=== PATIENT | female | born 1960 | race Caucasian/White ===

== ENCOUNTER 2018-10-21 13:16 | Emergency (ER) | payer OTHER, MEDICAID ==
[~2018-10-21] VITALS: Ht 177.8 cm; Wt 90.7 kg
[~2018-10-21 13:16] MED LIST: ASPRIN; ATOR10TA OR; DIPH25TA26 OR; LANTUS; LISI10TA6 OR; LITHIUM; METFORMIN; PRAM0.5T OR
[2018-10-21 14:00] VITALS: BP 172/72
[2018-10-21] MEDS ORDERED: ALPRAZolam 0.5 MG TAB PO ONE (16:15)
== END 2018-10-21 16:23 | disposition home or self-care (01) ==
LOC: ER 13:16
DX: F41.9 Anxiety disorder, unspecified (principal); I10 Essential (primary) hypertension; Z79.4 Long term (current) use of insulin; Z79.82 Long term (current) use of aspirin; Z79.899 Other long term (current) drug therapy; Z76.0 Encounter for issue of repeat prescription

== ENCOUNTER 2025-06-14 17:40 | Inpatient (IN) | payer MEDICARE, MEDICAID ==
[~2025-06-14] VITALS: Ht 170.2 cm; Wt 94.1 kg
[~2025-06-14 17:40] MED LIST changes: +LISI10TA34 OR; -LISI10TA6 OR; -PRAM0.5T OR; +PRAM0.5T2 OR
[2025-06-14 19:19] LABS: Hematocrit 44.6 % (36.0-46.0); Hemoglobin 14.8 g/dL (12.2-16.2); Mean Corpuscular Hemoglobin 28.9 pg (28.0-32.0); Mean Corpuscular Volume 86.9 fL (80.0-100.0); Nucleated Red Blood Cells % 0.0 %
--- NOTE | 2025-06-14 19:21 | DVH ---
CHEST RADIOGRAPH Indication: ALOC Technique: Single frontal view of the chest was obtained Comparison: None FINDINGS: Lines and Tubes: None Lungs: No focal consolidation. Pleura: No effusion. No pneumothorax. Cardiomediastinal contours: Unremarkable Bones: No acute osseous abnormality. IMPRESSION: 1. No acute cardiopulmonary disease.
--- NOTE | 2025-06-14 19:23 | ED.PDOC ---
Altered Mental Status HPI Comments [id number] is BIBA for c/c of AMS. Per EMS personnel report, patient was found altered outside of a crisis center, earlier, this evening. On scene blood glucose of 243. Patient is awake and tracks but refuses to answer questions. At time of assessment, patient is a poor historian and refuses to answer questions. Further history is limited, due to patient's current condition and absence of family/admissions dean historians. ERA BAR: ALOC. HPI: Poor Historian. Past Medical History: Unknown Past Surgical History: Unknown REVIEW OF SYSTEMS: Limited since the patient does not answer any of our questions but she still does voice some dissatisfaction when I pushed on her bel ly she started swearing and pushing by arms away. CONSTITUTIONAL: Denies acute: fever, diaphoresis, chills, generalized weakness. HEAD: Denies acute: headache, photophobia Eyes: Denies acute: Double vision, vision loss, eye pain, eye discharge. EARS: Denies acute: tinnitus, hearing loss, ear discharge, ear pain, THROAT: Denies acute: sore throat, swelling, difficulty swallowing , pain with swallowing, change in voice. NECK: Denies acute: neck pain, neck swelling, stiff neck. HEART: Denies acute : chest pain, palpitations, LUNGS: Denies acute: SOB, wheezing, cough, hemoptysis ABDOMEN: Denies acute: abdominal pain, Nausea, Vomiting, diarrhea, melena , hematemesis, hematochezia SKIN: Denies acute: rash, redness, lesions, itchiness. EXTREMITIES: Denies acute: calf pain, numbness, tingling, weakness, denies pain in extremity. Denies acute: Low back pain. Neuro: Denies acute: focal neurological deficit, motor or sensory focal neurological deficit, tremors, seizure like activity, confusion, dizziness, change in mental status, loss of bowel or bladder function, cauda equina like symptoms. : Denies acute: dysuria, hematuria, flank pain, increase in urinary frequency. PSYCH: Denies acute: hallucination, suicidal ideation, homicidal ideation. FEMALE: Denies acute: abnormal vaginal bleeding, foul odor, unusual discharge. PHYSICAL EXAM: General: ---no-----acute distress, awake and alert. Head: normocephalic, atraumatic. No raccoon's eyes, no martinez sign. Neck: supple, trachea is midline, no swelling. Throat: Normal phonation. Eyes:, no erythema, no purulent discharge, no proptosis, no icterus. Heart: regular rate, regular rhythm, no significant murmur appreciated. Lungs: no apparent respiratory distress, Able to speak in full sentences. No wheezing, no rhonchi, no crackles. No stridors Clear to auscultation bilaterally. Abdomen: Generalized tender to palpation, non distended, soft, no guarding, no rebound, + bowel sounds. Neuro: Awake, Alert, Skin: no petechia, no purpura, no cyanosis, slightly-pale, not jaundice. Lower extremities: --no - Pitting edema no deformity, no focal swelling, no calf TTP. Makes eye contact. moves all four extremities. Face: no apparent facial droop. ED COURSE: DISCLAIMER: This medical document was created using an electronic medical record system with voice recognition software and computerized dictation system. Although this document has been carefully reviewed, there might still be some phonetic and typographical errors. Occasional wrong-word or "sound-alike" substitutions may have occurred due to the inherent limitations of voice recognition software. These areas are purely typographical due to imperfections of the software pro grams and do not reflect any compromise in the patient's medical care. Please read the chart carefully and recognize, using context, where these substitutions have occurred. 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 Was a procedure done?: No Differential Diagnosis (ALOC) Differential Diagnosis: Other (DDX include CVA, TGA, cerebellar ischemia/infarct, carotid stenosis, Intracranial mass/infection/bleed, encephalopathy, electrolyte abnormality, thyroid disease, hydrocephalus, hypoglycemia, drug toxicity, cardiac arrhythmia, seizure, infection in the elderly, Hyperammonemia., kidney failure., sepsis.) X-Ray, Labs, Meds, VS Vital Signs Date Time Temp Pulse Resp B/P (MAP) Pulse Ox O2 Delivery O2 Flow Rate FiO2 06/14/25 17:53 98.8 115 18 127/67 98 98.8 Lab Test 06/14/25 21:47 06/14/25 19:49 06/14/25 18:55 Range/Units Lactic Acid Level 1.7 2.2 *H 0.4-2.0 mmol/L Troponin I High Sensitivity 4 < 3 L < 3 L </=34 ng/L White Blood Count 8.6 4.4-10.8 10^3/uL Red Blood Count 5.13 4.0-5.20 10^6/uL Hemoglobin 14.8 12.2-16.2 g/dL Hematocrit 44.6 36.0-46.0 % Mean Corpuscular Volume 86.9 80.0-100.0 fL Mean Corpuscular Hemoglobin 28.9 28.0-32.0 pg Mean Corpuscular Hemoglobin Concent 33.2 32.0-36.0 g/dL Red Cell Distribution Width 16.0 H 11.8-14.3 % Platelet Count 233 140-450 10^3/uL Mean Platelet Volume 8.6 6.9-10.8 fL Neutrophils (%) (Auto) 76.2 37.0-80.0 % Lymphocytes (%) (Auto) 14.8 10.0-50.0 % Monocytes (%) (Auto) 6.9 0.0-12.0 % Eosinophils (%) (Auto) 1.8 0.0-7.0 % Basophils (%) (Auto) 0.3 0.0-2.0 % Neutrophils # (Auto) 6.5 1.6-8.6 10 ^3/uL Lymphocytes # (Auto) 1.3 0.4-5.4 10 ^3/uL Monocytes # (Auto) 0.6 0-1.3 10 ^3/uL Eosinophils # (Auto) 0.2 0-0.8 10 ^3/uL Basophils # (Auto) 0 0-0.2 10 ^3/uL Nucleated Red Blood Cells 0.0 % Sodium Level 139 136-145 mmol/L Potassium Level 4.4 3.5-5.1 mmol/L Chloride Level 102 98-107 mmol/L Carbon Dioxide Level 24 20-31 mmol/L Anion Gap 13 5-15 Blood Urea Nitrogen 17 9-23 mg/dL Creatinine 1.88 H 0.550-1.02 mg/dL Glomerular Filtration Rate Calc 30 >90 mL/min BUN/Creatinine Ratio 9.0 L 10.0-20.0 Serum Glucose 235 H 74-106 mg/dL Calcium Level 9.9 8.7-10.4 mg/dL Total Bilirubin 1.0 0.2-1.0 mg/dL Aspartate Amino Transferase (AST) 21 13-40 U/L Alanine Aminotransferase (ALT) 22 7-40 U/L Alkaline Phosphatase 187 H 46-116 U/L Ammonia < 10 L 11-32 umol/L Creatine Kinase 36 34-145 U/L Total Protein 8.1 5.7-8.2 g/dL Albumin 4.8 3.2-4.8 g/dL Salicylates Level < 3.0 -30 mg/dL Acetaminophen Level < 2.0 L 10.0-20.0 UG/ML Time of 1ST Reevaluation: 18:13 Reevaluation 1ST: Unchanged Patient Education/Counseling: Other (Patient is altered ) Family Education/Counseling: No Family Present Comments MDM: patient presented with the above HPI.--AMS/ALOC----workup was initiated. patient was found with the above mentioned diagnosis. the following medications were ordered: please refer to order lists of meds and tests obtained by myself Dr. Villanueva. Patient ED course and VS have been stabilized. Patient has been reassessed in the ED and remained in a stable condition. Patient has been observed in the ED adequate length of time to insure improvement/stability. Escalation of care considered: Consideration of escalation to observation or admission Patient refuses to answer any questions. They were unable to obtain CT scan imaging because patient keeps moving. Patient was ADMITTED to the medicine team for further evaluation and treatment of their presentation. All the reports of any imaging studies that were ordered by myself were reviewed by myself. SEPSIS Sepsis Screen Date sepsis recognized/suspect: Jun 14, 2025 Time Sepsis recognized/suspect: 1734 Recent Procedure: No On Antibiotic Therapy: No Respiratory Rate >20: No Heart Rate >90: Yes Temp<36 C (96.8 F) or >38.3 C: No SBP <90 or MAP <65 mmHG: No New Acute Mental Status Change: Yes Is the patient on CPAP, BIPAP,: No Physician Orders Legal Transcriptionist (06/14/25 ) Urinalysis (06/14/25 18:19) Drug Screen (06/14/25 18:19) Chest Portable (06/14/25 18:19) Electrocardigram (06/14/25 18:19) Head Without Contrast (06/14/25 18:19) Ct Ab Pel Wo Con-No Oral Or Iv (06/14/25 18:35) Vital Signs Date Time Temp Pulse Resp B/P (MAP) Pulse Ox O2 Delivery O2 Flow Rate FiO2 06/14/25 17:53 98.8 115 18 127/67 98 98.8 Laboratory Tests Test 06/14/25 18:55 06/14/25 21:47 Lactic Acid Level 2.2 mmol/L (0.4-2.0) *H 1.7 mmol/L (0.4-2.0) White Blood Count 8.6 10^3/uL (4.4-10.8) Departure 1 Departure Time of Disposition: 20:54 Impression: Primary Impression: Altered mental status Disposition: 09 ADMITTED INPATIENT Admit to: Tele Condition: Guarded Discharged With: Self Critical Care Note Critical Care Time?: No I personally scribed for NATALIE VILLANUEVA DO ([email or web address]) on 06/14/25 at 20:20. Electronically submitted by Anibal Hernandez [email or web address]). NATALIE VILLANUEVA DO Jun 14, 2025 19:23
[2025-06-14 19:31] LABS: Alanine Aminotransferase 22 U/L (7-40); Albumin 4.8 g/dL (3.2-4.8); Anion Gap 13 (5-15); BUN/Creatinine Ratio 9.0 (10.0-20.0); Bilirubin, Total 1.0 mg/dL (0.2-1.0); Blood Urea Nitrogen 17 mg/dL (9-23); Calcium 9.9 mg/dL (8.7-10.4); Carbon Dioxide 24 mmol/L (20-31); Chloride 102 mmol/L (98-107); Creatine Kinase IFCC 36 U/L (34-145); Potassium 4.4 mmol/L (3.5-5.1); Sodium 139 mmol/L (136-145); Total Protein 8.1 g/dL (5.7-8.2)
[2025-06-14 19:33] LABS: Alkaline Phosphatase 187 U/L (46-116); Glucose 235 mg/dL (74-106)
[2025-06-14 19:34] LABS: Acetaminophen < 2.0 UG/ML (10.0-20.0); Salicylate < 3.0 mg/dL (-30)
[2025-06-14 19:50] LABS: Lactic Acid w/Reflex 2.2 mmol/L (0.4-2.0)
[2025-06-14] MEDS ORDERED: DEXTROSE (50%) 50ML SYRG IV PRN (22:00)
[2025-06-14] MEDS: SODIUM CHLORIDE 0.9% 1,000 ML IV SCH (22:00)
[2025-06-14] MEDS ORDERED: ONDANSETRON HCL 4 MG/2 ML VIAL IV PRN (22:00)
[2025-06-14] MEDS ORDERED: MORPHINE SULFATE INJ 2 MG/ml SYRG IV PRN (22:00)
[2025-06-14] MEDS: ATORVASTATIN 20 MG TAB PO SCH (22:00)
[2025-06-14] MEDS ORDERED: NITROGLYCERIN 0.4 MG SL TAB SL PRN (22:00)
--- NOTE | 2025-06-14 22:04 | DVHHP2 ---
History of Present Illness Reason for Visit: Altered mental status History of Present Illness The patient is a 64-year-old female with past medical history of depression, schizophrenia, hyperlipidemia, and diabetes mellitus who presented to [facility] ED for evaluation of altered level of consciousness. As reported by EMS, patient was found altered outside of a crisis center earlier this evening. On the scene, blood glucose was 243 mg/dL. Patient was awake tracks but refuses to answer questions, he is a poor historian. Patient was seen and evaluated in the ED, laboratory data shows WBC 8.6, platelets 233, sodium 139, potassium 4.4, BUN 17, creatinine 1.88, glucose 235, calcium 9.9, CK 36, lactic acid 2.2, ammonia < 10, troponin < 3, blood pressure 127/67, heart rate 114, temperature 98.8 F, O2 saturation 98% on room air. Chest x-ray showed no acute cardiopulmonary disease. Head CT results pending. Please see medication orders section in the computer. On my assessment, patient remains altered, no diaphoresis, shortness of breaths, no diarrhea, nausea, vomiting, fever, no chills. Patient was admitted for further evaluation and medical management. Past Medical History Depression, Schizophrenia, HLD, DM Past Surgical History Unobtainable Family History Reviewed, noncontributory to the management of this case. Past Social History The patient lives at home, no history of smoking, alcohol or illicit drugs abuse on file. Review of Systems Constitutional: Yes: Weakness; No: Fever, Chills, Sweats, Malaise, Other Eyes: No: Pain, Vision change, Conjunctivae inflammation, Eyelid inflammation, Other, Redness ENT: No: Ear pain, Ear discharge, Nose pain, Nose discharge, Nose congestion, Mouth pain, Mouth swelling, Throat pain, Throat swelling, Other Respiratory: No: Cough, Dry, Shortness of breath, SOB with excertion, Wheezing, Hemoptysis, Pleuritic Pain, Sputum, Wheezing, Other Cardiovascular: No: Chest Pain, Palpitations, Orthopnea, Paroxysmal Noc. Dyspnea, Edema, Lt Headedness, Other Gastrointestinal: No: Nausea, Vomiting, Abdominal Pain, Diarrhea, Constipation, Melena, Hematochezia, Other Genitourinary: No Dysuria, No Frequency, No Incontinence, No Hematuria, No Retention, No Other Musculoskeletal: No: other, neck pain, shoulder pain, arm pain, back pain, hand pain, leg pain, foot pain Skin: No: Rash, Lesions, Jaundice, Bruising, Other Neurological: Confusion, Other (Altered level of consciousness); No: Weakness, Numbness, Incoordination, Change in speech, Seizures Allergies: Coded Allergies: UNOBTAINABLE (Unverified , 06/14/25) Exam Vital Signs Vital Signs Date Time Temp Pulse Resp B/P (MAP) Pulse Ox O2 Delivery O2 Flow Rate FiO2 06/14/25 17:53 98.8 115 18 127/67 98 98.8 General Appearance: Alert, Cooperative, No acute distress, Other (X1) HEENT: Atraumatic, PERRLA, EOMI, Mucous membr. moist/pink Respiratory: Normal air movement Cardiovascular: Regular rate, Normal S1, Normal S2, No murmurs Abdominal: Normal bowel sounds, Soft, No tenderness, No hepatospenomegaly, No masses Extremities: No clubbing, No cyanosis, No edema, Normal pulses, No tenderness/swelling Skin: No rashes, No significant lesion Neuro: Normal tone, Sensation intact, Cranial nerves 3-12 NL, Reflexes 2+, Other (Generalized weakness) Psych/Mental Status: Mood NL, Other (Altered mental status) Labs/Xrays Labs Test 06/14/25 21:47 06/14/25 18:55 Range/Units White Blood Count 8.6 4.4-10.8 10^3/uL Red Blood Count 5.13 4.0-5.20 10^6/uL Hemoglobin 14.8 12.2-16.2 g/dL Hematocrit 44.6 36.0-46.0 % Mean Corpuscular Volume 86.9 80.0-100.0 fL Mean Corpuscular Hemoglobin 28.9 28.0-32.0 pg Mean Corpuscular Hemoglobin Concent 33.2 32.0-36.0 g/dL Red Cell Distribution Width 16.0 H 11.8-14.3 % Platelet Count 233 140-450 10^3/uL Mean Platelet Volume 8.6 6.9-10.8 fL Neutrophils (%) (Auto) 76.2 37.0-80.0 % Lymphocytes (%) (Auto) 14.8 10.0-50.0 % Monocytes (%) (Auto) 6.9 0.0-12.0 % Eosinophils (%) (Auto) 1.8 0.0-7.0 % Basophils (%) (Auto) 0.3 0.0-2.0 % Neutrophils # (Auto) 6.5 1.6-8.6 10 ^3/uL Lymphocytes # (Auto) 1.3 0.4-5.4 10 ^3/uL Monocytes # (Auto) 0.6 0-1.3 10 ^3/uL Eosinophils # (Auto) 0.2 0-0.8 10 ^3/uL Basophils # (Auto) 0 0-0.2 10 ^3/uL Nucleated Red Blood Cells 0.0 % Sodium Level 139 136-145 mmol/L Potassium Level 4.4 3.5-5.1 mmol/L Chloride Level 102 98-107 mmol/L Carbon Dioxide Level 24 20-31 mmol/L Anion Gap 13 5-15 Blood Urea Nitrogen 17 9-23 mg/dL Creatinine 1.88 H 0.550-1.02 mg/dL Glomerular Filtration Rate Calc 30 >90 mL/min BUN/Creatinine Ratio 9.0 L 10.0-20.0 Serum Glucose 235 H 74-106 mg/dL Calcium Level 9.9 8.7-10.4 mg/dL Total Bilirubin 1.0 0.2-1.0 mg/dL Aspartate Amino Transferase (AST) 21 13-40 U/L Alanine Aminotransferase (ALT) 22 7-40 U/L Alkaline Phosphatase 187 H 46-116 U/L Ammonia < 10 L 11-32 umol/L Creatine Kinase 36 34-145 U/L Total Protein 8.1 5.7-8.2 g/dL Albumin 4.8 3.2-4.8 g/dL Salicylates Level < 3.0 -30 mg/dL Acetaminophen Level < 2.0 L 10.0-20.0 UG/ML PATIENT: ERA BAR ACCT: [id number] UNIT: [id number] : 06/14/1967 LOC: ER ROOM / BED: / AGE / SEX: 58 / F ADM STATUS: REG ER SERVICE 1819 ORDERING PHYSICIAN: NATALIE VILLANUEVA DO PROCEDURE(s): CXRP - CHEST PORTABLE REASON: ALOC ORDER NUMBER(s): [id number], ACCESSION NUMBER(s): [id number] CHEST RADIOGRAPH Indication: ALOC Technique: Single frontal view of the chest was obtained Comparison: None FINDINGS: Lines and Tubes: None Lungs: No focal consolidation. Pleura: No effusion. No pneumothorax. Cardiomediastinal contours: Unremarkable Bones: No acute osseous abnormality. IMPRESSION: 1. No acute cardiopulmonary disease. SEPSIS Sepsis Screen Date sepsis recognized/suspect: Jun 14, 2025 Time Sepsis recognized/suspect: 1734 Recent Procedure: No On Antibiotic Therapy: No Respiratory Rate >20: No Heart Rate >90: Yes Temp<36 C (96.8 F) or >38.3 C: No SBP <90 or MAP <65 mmHG: No New Acute Mental Status Change: Yes Is the patient on CPAP, BIPAP,: No Physician Orders Clinical Consultant (06/14/25 ) Urinalysis (06/14/25 18:19) Drug Screen (06/14/25 18:19) Chest Portable (06/14/25 18:19) Electrocardigram (06/14/25 18:19) Head Without Contrast (06/14/25 18:19) Troponin-I Hs (06/14/25 21:19) Ct Ab Pel Wo Con-No Oral Or Iv (06/14/25 18:35) Consistent Carb(Ccho)Diabetes (06/15/25 Breakfast) Famotidine Injection (Pepcid Injection) (06/15/25 10:00) Atorvastatin (Lipitor) (06/14/25 22:00) Olanzapine Tablet (Zyprexa Tablet) (06/15/25 10:00) Aspirin Tablet (06/15/25 10:00) Fluoxetine Capsule (Prozac Capsule) (06/15/25 10:00) Glucose Blood (Accu-Chek Comfort Curve T (06/15/25 00:00) Moderate Insulin Ss (06/15/25 00:00) Dextrose 50% Syringe (06/14/25 22:00) Admit (06/14/25 21:52) Allergies (06/14/25 21:52) Code Status (06/14/25 21:52) 0.9% Ns 1000 Ml (06/14/25 22:00) Oxygen Per Hour (06/14/25 21:52) Hydrocodone-Acet 5/325mg Tab ([place] 5/32 (06/14/25 22:00) Ondansetron Hcl (Zofran) (06/14/25 22:00) Docusate Sodium Capsule (Colace Capsule) (06/14/25 22:00) Fall Risk Precautions In Place QSHIFT (06/14/25:52) Complete Blood Count (06/15/25 04:00) Comprehensive Metabolic Panel (06/15/25 04:00) Condition: Serious (06/14/25:52) Acetaminophen Tablet (Tylenol Tablet) (06/14/25 22:00) Maintain Bed Rest (06/14/25:52) Sequential Compression Device (06/14/25 ) Nitroglycerin Sublingual (Ntrostat Subli (06/14/25 22:00) Morphine Sulfate Injection (06/14/25:00) Stat Ekg For Chest Pain (06/14/25:52) Notify Md Of Changes From Base (06/14/25:52) Bellows Filler For 24 Hours (06/14/25:52) Emergency Dysrhythmia Protocol (06/14/25:52) Rhythm Strips Once Every Shift (06/14/25:52) Oxygen By Nasal Cannula (06/14/25:52) *[facility] (06/14/25:52) Vital Signs Date Time Temp Pulse Resp B/P (MAP) Pulse Ox O2 Delivery O2 Flow Rate FiO2 06/14/25 17:53 98.8 115 18 127/67 98 98.8 Laboratory Tests Test 06/14/25 18:55 06/14/25 21:47 Lactic Acid Level 2.2 mmol/L (0.4-2.0) *H Pending White Blood Count 8.6 10^3/uL (4.4-10.8) Assessment/Plan Assessment/Plan Altered mental status Acute renal injury Diabetes mellitus with hyperglycemia Plan 1. Admit to telemetry unit 2. Breathing treatment 3. Pain control management 4. Management of fluids and electrolytes 5. Consultation for Nephrology 6. Diagnostic tests chest x-ray/head CT 7. DVT prophylaxis-on aspirin 8. Repeat labs CBC, CMP in a.m. 9. Continue with current medical management 10. Treatment plan discussed with patient and RN. Patient verbalized understanding. Plan discussed with: Patient, Other (RN) My Orders Orders - MARIANELA NOWAK DNP Procedure Category Date Status Time Consistent DIET 06/15/25 Verified Carb(Ccho)Diabetes Breakfast Famotidine Injection PHA 06/15/25 Verified (Pepcid Injection) 10:00 Atorvastatin (Lipitor) PHA 06/14/25 Verified 22:00 Olanzapine Tablet PHA 06/15/25 Verified (Zyprexa Tablet) 10:00 Aspirin Tablet PHA 06/15/25 Verified 10:00 Fluoxetine Capsule PHA 06/15/25 Verified (Prozac Capsule) 10:00 Glucose Blood PHA 06/15/25 Verified (Accu-Chek Comfort 00:00 Moderate Insulin Ss PHA 06/15/25 Verified 00:00 Dextrose 50% Syringe PHA 06/14/25 Verified 22:00 Admit ADMIT 06/14/25 Verified 21:52 Allergies MARIO 06/14/25 Verified 21:52 Code Status CODE 06/14/25 Verified 21:52 0.9% Ns 1000 Ml PHA 06/14/25 Verified 22:00 Oxygen Per Hour RT 06/14/25 Verified 21:52 Hydrocodone-Acet PHA 06/14/25 Verified 5/325mg Tab ([place] 22:00 Ondansetron Hcl PHA 06/14/25 Verified (Zofran) 22:00 Docusate Sodium PHA 06/14/25 Verified Capsule (Colace 22:00 Fall Risk Precautions [facility] 06/14/[address] 21:52 Complete Blood Count LAB 06/15/25 Verified 04:00 Comprehensive LAB 06/15/25 Verified Metabolic Panel 04:00 Condition: Serious MARIO 06/14/25 Verified 21:52 Acetaminophen Tablet PHA 06/14/25 Verified (Tylenol Tablet) 22:00 Maintain Bed Rest [facility] 06/14/25 Verified 21:52 Sequential [facility] 06/14/25 Verified Compression Device Nitroglycerin [facility] 06/14/25 Verified Sublingual (Ntrostat 22:00 Morphine Sulfate PHA 06/14/25 Verified Injection 22:00 Stat Ekg For Chest [facility] 06/14/25 Verified Pain 21:52 Notify Of Changes [facility] 06/14/25 Verified From Base 21:52 Bellows Filler For [facility] 06/14/25 Verified 24 Hours 21:52 Emergency Dysrhythmia [facility] 06/14/25 Verified Protocol 21:52 Rhythm Strips Once [facility] 06/14/25 Verified Every Shift 21:52 Oxygen By Nasal RT 10/31/25 Verified Cannula 21:52 *Dr[facility] CONS 06/14/25 Verified -[place] 21:52 Problem List: (1) Altered mental status (2) Acute renal injury (3) Diabetes mellitus with hyperglycemia Date of Service: Jun 14, 2025 Billing Provider: MARIANELA NOWAK DNP Common Visit Codes: [id number] INP/OBS CARE (HIGH) MARIANELA NWOAK DNP Jun 14, 2025 22:04
[2025-06-15] VITALS (7 sets, daily range): BP systolic 99–121; BP diastolic 62–75; PULSE 90–101; RESP 16–20; TEMP 97.9–99; O2SAT 18–96
[2025-06-15] MEDS: ACCU-CHEK COMFORT CURVE STRIP VI SCH
[2025-06-15] MEDS: InsuLIN REG 1unit/0.01ml Soln (100units/ml) SC SCH
[2025-06-15 05:52] LABS: Hematocrit 40.8 % (36.0-46.0); Hemoglobin 13.6 g/dL (12.2-16.2); Mean Corpuscular Hemoglobin 29.0 pg (28.0-32.0); Mean Corpuscular Volume 87.1 fL (80.0-100.0); Nucleated Red Blood Cells % 0.1 %
[2025-06-15 06:02] LABS: Alanine Aminotransferase 22 U/L (7-40); Albumin 4.4 g/dL (3.2-4.8); Anion Gap 15 (5-15); BUN/Creatinine Ratio 11.8 (10.0-20.0); Blood Urea Nitrogen 20 mg/dL (9-23); Calcium 9.6 mg/dL (8.7-10.4); Carbon Dioxide 21 mmol/L (20-31); Chloride 103 mmol/L (98-107); Potassium 3.8 mmol/L (3.5-5.1); Sodium 139 mmol/L (136-145); Total Protein 7.5 g/dL (5.7-8.2)
[2025-06-15 06:03] LABS: Bilirubin, Total 1.1 mg/dL (0.2-1.0)
[2025-06-15 06:08] LABS: Alkaline Phosphatase 173 U/L (46-116); Glucose 230 mg/dL (74-106)
--- NOTE | 2025-06-15 09:35 | DVHINCON2 ---
Date of Service if different f: Jun 15, 2025 Consultation ([facility]) Consulting Physician: KARLA JAMES MD Labs Laboratory Tests Test 06/14/25 18:55 06/14/25 21:47 06/15/25 05:19 06/15/25 08:03 Ammonia < 10 umol/L (11-32) Creatine Kinase 36 U/L (34-145) Salicylates Level < 3.0 mg/dL (-30) Acetaminophen Level < 2.0 UG/ML (10.0-20.0) Lactic Acid Level 1.7 mmol/L (0.4-2.0) Troponin I High Sensitivity 4 ng/L (</=34) White Blood Count 6.9 10^3/uL (4.4-10.8) Red Blood Count 4.69 10^6/uL (4.0-5.20) Hemoglobin 13.6 g/dL (12.2-16.2) Hematocrit 40.8 % (36.0-46.0) Mean Corpuscular Volume 87.1 fL (80.0-100.0) Mean Corpuscular Hemoglobin 29.0 pg (28.0-32.0) Mean Corpuscular Hemoglobin Concent 33.4 g/dL (32.0-36.0) Red Cell Distribution Width 15.8 % (11.8-14.3) Platelet Count 217 10^3/uL (140-450) Mean Platelet Volume 8.8 fL (6.9-10.8) Neutrophils (%) (Auto) 72.2 % (37.0-80.0) Lymphocytes (%) (Auto) 18.0 % (10.0-50.0) Monocytes (%) (Auto) 6.6 % (0.0-12.0) Eosinophils (%) (Auto) 2.8 % (0.0-7.0) Basophils (%) (Auto) 0.4 % (0.0-2.0) Neutrophils # (Auto) 5.0 10 ^3/uL (1.6-8.6) Lymphocytes # (Auto) 1.2 10 ^3/uL (0.4-5.4) Monocytes # (Auto) 0.5 10 ^3/uL (0-1.3) Eosinophils # (Auto) 0.2 10 ^3/uL (0-0.8) Basophils # (Auto) 0 10 ^3/uL (0-0.2) Nucleated Red Blood Cells 0.1 % Sodium Level 139 mmol/L (136-145) Potassium Level 3.8 mmol/L (3.5-5.1) Chloride Level 103 mmol/L (98-107) Carbon Dioxide Level 21 mmol/L (20-31) Anion Gap 15 (5-15) Blood Urea Nitrogen 20 mg/dL (9-23) Creatinine 1.70 mg/dL (0.550-1.02) Glomerular Filtration Rate Calc 33 mL/min (>90) BUN/Creatinine Ratio 11.8 (10.0-20.0) Serum Glucose 230 mg/dL (74-106) Calcium Level 9.6 mg/dL (8.7-10.4) Total Bilirubin 1.1 mg/dL (0.2-1.0) Aspartate Amino Transf (AST/SGOT) 17 U/L (13-40) Alanine Aminotransferase (ALT/SGPT) 22 U/L (7-40) Alkaline Phosphatase 173 U/L (46-116) Total Protein 7.5 g/dL (5.7-8.2) Albumin 4.4 g/dL (3.2-4.8) Bedside Glucose 227 mg/dl (70-106) Appetite: Poor Appearance: Stated age Psychomotor activity: Retarted Behavioral: Uncooperative, Withdrawn Eye contact: Avoids Speech: Mute Affect: Flat Orientation: Person Attention: Adequate Judgement: Poor Insight: Poor Vitals Vital Signs Date Time Temp Pulse Resp B/P (MAP) Pulse Ox O2 Delivery O2 Flow Rate FiO2 06/15/25 05:02 98.1 101 18 115/72 (86) 95 98.1 06/15/25 00:08 Room Air* 0 21 Current medications Current Medications Medications Dose Ordered Sig/Cooper Route Start Time Stop Time Status Last Admin Dose Admin Famotidine 20 mg DAILY IV 06/15/25 10:00 Atorvastatin Calcium 10 mg HS PO 06/14/25 22:00 06/14/25 22:00 10 MG Olanzapine 5 mg DAILY PO 06/15/25 10:00 Aspirin 81 mg DAILY PO 06/15/25 10:00 Fluoxetine HCl 20 mg DAILY PO 06/15/25 10:00 Diagnostic Test (Pha) 1 strip IQ4HR 06/15/25 00:00 06/15/25 08:10 1 STRIP Insulin Human Regular IQ4HR SC 06/15/25 00:00 06/15/25 08:13 6 UNITS Dextrose 50 ml UD PRN IV 06/14/25 22:00 Sodium Chloride 1,000 ml @ 60 mls/hr [id number] IV 06/14/25 22:00 06/15/25 04:03 60 MLS/HR Acetaminophen/ Hydrocodone Bitart 1 tab Q4HP PRN PO 06/14/25 22:00 Ondansetron HCl 4 mg Q4HP PRN IV 06/14/25 22:00 Docusate Sodium 100 mg BIDPRN PRN PO 06/14/25 22:00 Acetaminophen 650 mg Q6HP PRN PO 06/14/25 22:00 Nitroglycerin 0.4 mg Q5MINP PRN SL 06/14/25 22:00 Morphine Sulfate 2 mg Q30M PRN IV 06/14/25 22:00 Treatment plan discussed: With staff Medication adjusted: Yes Labs ordered: No Psychotherapy provided: No Type: Voluntary Diagnosis: History of Schizophrenia and Depression. The pt may be catatonic right now. Plan : The pt is not willing to participate in a psychiatric interview. Pt remains mute, does not answer questions, stares blankly. When nurse asked if she wants to continue the interview pt says no and turns away. Nurse says that the pt has only provided a single word answer here and there and has had 'some' food this morning. This presentation appears to be suggest catatonia and as such A trial of Ativan 2 mg once should be considered. If the 2 mg Ativan makes the pt somnolent and after 3 TID doses the pt continues to be somnolent on Ativan 2 mg, then starting the pt on Zyprexa 10 mg qhs to start, may be a good idea. If Catatonia starts to remit after a few doses, then taper to 1.5 mg TID in 3 days, then 1 mg TID 3 days after that. 0.5 mg TID 3 days after that and 0.5 mg BID 3 days after that. Then stop completely after 5 days of BID. The pt can be started and continued on zyprexa after catatonia starts to lift, but if it returns after starting zyprexa. Then, please stop zyprexa and resume ativan treatment. Consider transferring to inpatient psychiatry at the earliest opportunity on 5150 for GD. History of Present Illness Reason for Consult : ALOC. HPI : The pt was brought in from outside a crisis center for altered mental status. Per electrical test engineer note the pt "presented to [facility] ED for evaluation of altered level of consciousness. As reported by EMS, patient was found altered outside of a crisis center earlier yesterday evening. On the scene, blood glucose was 243 mg/dL. Patient was awake tracks but refuses to answer questions, he is a poor historian. Patient was seen and evaluated in the ED." Laboratory data shows unremarkable values except for high glucose over 200 and creatinine of 1.88 and an in creased RDW. These are not suggestive of a likely medical delirium. A psychiatric interview was attempted and the pt did not participate and declined the interview. Pt is noted to answer questions with 1 or 2 word answers. Pt barely moves and has no spontaneous speech. Past Psychiatric History : Depression, schizophrenia. Past Medical History : Hyperlipidemia, and diabetes mellitus. Social History : Unable to assess. Assessment/Diagnosis/Plan Reviewed: Consults, Care Plan, Labs, Medications KARLA JAMES MD Jun 15, 2025 09:35
[2025-06-15] MEDS: FAMOTIDINE (10MG/ML) 2ML VL IV SCH (09:41)
[2025-06-15] MEDS: OLANZapine 5 MG TAB PO SCH (09:41)
--- NOTE | 2025-06-15 16:55 | DVHINCON2 ---
Date of service: Jun 15, 2025 Referring Physician Hospitalist Reason for Consultation Acute kidney injury History of Present Illness 64-year-old female past medical history of chronic kidney disease stage IIIB, diabetes, pulmonary embolism on Eliquis, and bipolar disorder on medications was brought in by family due to dressing change in patient's mental state. Per daughter at bedside patient suddenly stopped eating drinking talking and remained in bed nonverbal she was brought to the hospital for this reason nephrology was consulted due to a creatinine level of 1.88 This is elevated from her baseline of approximately 1.[address] [facility] Patient has been evaluated by Psychiatry and during the course of his hospitalization patient has remained nonverbal noncompliant or adherent with med ical interviews or medical treatments. Psychiatry diagnosed her with acute catatonia and has recommended inpatient psychiatry Family at bedside reports patient recently was treated for a tooth abscess as well as urinary tract infection, patient this has not allowed for a urinary evaluation Allergies: Coded Allergies: UNOBTAINABLE (Unverified , 06/14/25) Current Medications Current Medications Medications (Trade) Dose Ordered Sig/Cooper Route PRN Reason Start Time Stop Time Status Last Admin Famotidine (Pepcid Injection) 20 mg DAILY IV 06/15/25 10:00 Atorvastatin Calcium (Lipitor) 10 mg HS PO 06/14/25 22:00 06/14/25 22:00 Olanzapine (ZyPREXA Tablet) 5 mg DAILY PO 06/15/25 10:00 Aspirin 81 mg DAILY PO 06/15/25 10:00 Fluoxetine HCl (PROzac CAPSULE) 20 mg DAILY PO 06/15/25 10:00 Diagnostic Test (Pha) (Accu-Chek Comfort Curve T) 1 strip IQ4HR 06/15/25 00:00 06/15/25 11:58 Insulin Human Regular (InsuLIN R) IQ4HR SC 06/15/25 00:00 06/15/25 08:13 Dextrose 50 ml UD PRN IV Blood Sugar LESS THAN 60 06/14/25 22:00 Sodium Chloride 1,000 ml @ 60 mls/hr [id number] IV 06/14/25 22:00 06/15/25 04:03 Acetaminophen/ Hydrocodone Bitart ([place] 5/325MG Tab) 1 tab Q4HP PRN PO MODERATE PAIN (4-6 PAIN SCALE) 06/14/25 22:00 Ondansetron HCl (Zofran) 4 mg Q4HP PRN IV NAUSEA / VOMITING 06/14/25 22:00 Docusate Sodium (Colace Capsule) 100 mg BIDPRN PRN PO FOR CONSTIPATION 06/14/25 22:00 Acetaminophen (Tylenol Tablet) 650 mg Q6HP PRN PO PAIN SCALE 1-3 OR TEMP>100.4 06/14/25 22:00 Nitroglycerin (Ntrostat Sublingual) 0.4 mg Q5MINP PRN SL FOR CHEST PAIN 06/14/25 22:00 Morphine Sulfate 2 mg Q30M PRN IV FOR CHEST PAIN 06/14/25 22:00 Review of Systems Can not obtain from patient due to altered mental state H&P Exam Vital Signs/I&O Vital Sign Date Time Temp Pulse Resp B/P (MAP) Pulse Ox O2 Delivery O2 Flow Rate FiO2 06/15/25 13:00 99.0 98 18 99/62 (74) 96 99.0 06/15/25 00:08 Room Air* 0 21 Intake and Output 06/14/25 06/15/25 19:00 07:00 Intake Total 140 ml Balance 140 ml Intake Oral 140 ml # Voids 1 Physical Exam Elderly white female Nonverbal Does not appear to be overloaded No pitting edema Patient appears to be guarded Labs/Diagnostic Data Labs/Diagnostic Data Laboratory Tests Test 06/15/25 11:52 06/15/25 08:03 06/15/25 05:19 06/14/25 21:47 Range/Units POC Glucose 228 H 227 H 70-106 mg/dl White Blood Count 6.9 4.4-10.8 10^3/uL Red Blood Count 4.69 4.0-5.20 10^6/uL Hemoglobin 13.6 12.2-16.2 g/dL Hematocrit 40.8 36.0-46.0 % Mean Corpuscular Volume 87.1 80.0-100.0 fL Mean Corpuscular Hemoglobin 29.0 28.0-32.0 pg Mean Corpuscular Hemoglobin Concent 33.4 32.0-36.0 g/dL Red Cell Distribution Width 15.8 H 11.8-14.3 % Platelet Count 217 140-450 10^3/uL Mean Platelet Volume 8.8 6.9-10.8 fL Neutrophils (%) (Auto) 72.2 37.0-80.0 % Lymphocytes (%) (Auto) 18.0 10.0-50.0 % Monocytes (%) (Auto) 6.6 0.0-12.0 % Eosinophils (%) (Auto) 2.8 0.0-7.0 % Basophils (%) (Auto) 0.4 0.0-2.0 % Neutrophils # (Auto) 5.0 1.6-8.6 10 ^3/uL Lymphocytes # (Auto) 1.2 0.4-5.4 10 ^3/uL Monocytes # (Auto) 0.5 0-1.3 10 ^3/uL Eosinophils # (Auto) 0.2 0-0.8 10 ^3/uL Basophils # (Auto) 0 0-0.2 10 ^3/uL Nucleated Red Blood Cells 0.1 % Sodium Level 139 136-145 mmol/L Potassium Level 3.8 3.5-5.1 mmol/L Chloride Level 103 98-107 mmol/L Carbon Dioxide Level 21 20-31 mmol/L Anion Gap 15 5-15 Blood Urea Nitrogen 20 9-23 mg/dL Creatinine 1.70 H 0.550-1.02 mg/dL Glomerular Filtration Rate Calc 33 >90 mL/min BUN/Creatinine Ratio 11.8 10.0-20.0 Serum Glucose 230 H 74-106 mg/dL Calcium Level 9.6 8.7-10.4 mg/dL Total Bilirubin 1.1 H 0.2-1.0 mg/dL Aspartate Amino Transferase (AST) 17 13-40 U/L Alanine Aminotransferase (ALT) 22 7-40 U/L Alkaline Phosphatase 173 H 46-116 U/L Total Protein 7.5 5.7-8.2 g/dL Albumin 4.4 3.2-4.8 g/dL Lactic Acid Level 1.7 0.4-2.0 mmol/L Troponin I High Sensitivity 4 </=34 ng/L Test 06/14/25 19:49 06/14/25 18:55 Range/Units Troponin I High Sensitivity < 3 L < 3 L </=34 ng/L White Blood Count 8.6 4.4-10.8 10^3/uL Red Blood Count 5.13 4.0-5.20 10^6/uL Hemoglobin 14.8 12.2-16.2 g/dL Hematocrit 44.6 36.0-46.0 % Mean Corpuscular Volume 86.9 80.0-100.0 fL Mean Corpuscular Hemoglobin 28.9 28.0-32.0 pg Mean Corpuscular Hemoglobin Concent 33.2 32.0-36.0 g/dL Red Cell Distribution Width 16.0 H 11.8-14.3 % Platelet Count 233 140-450 10^3/uL Mean Platelet Volume 8.6 6.9-10.8 fL Neutrophils (%) (Auto) 76.2 37.0-80.0 % Lymphocytes (%) (Auto) 14.8 10.0-50.0 % Monocytes (%) (Auto) 6.9 0.0-12.0 % Eosinophils (%) (Auto) 1.8 0.0-7.0 % Basophils (%) (Auto) 0.3 0.0-2.0 % Neutrophils # (Auto) 6.5 1.6-8.6 10 ^3/uL Lymphocytes # (Auto) 1.3 0.4-5.4 10 ^3/uL Monocytes # (Auto) 0.6 0-1.3 10 ^3/uL Eosinophils # (Auto) 0.2 0-0.8 10 ^3/uL Basophils # (Auto) 0 0-0.2 10 ^3/uL Nucleated Red Blood Cells 0.0 % Sodium Level 139 136-145 mmol/L Potassium Level 4.4 3.5-5.1 mmol/L Chloride Level 102 98-107 mmol/L Carbon Dioxide Level 24 20-31 mmol/L Anion Gap 13 5-15 Blood Urea Nitrogen 17 9-23 mg/dL Creatinine 1.88 H 0.550-1.02 mg/dL Glomerular Filtration Rate Calc 30 >90 mL/min BUN/Creatinine Ratio 9.0 L 10.0-20.0 Serum Glucose 235 H 74-106 mg/dL Lactic Acid Level 2.2 *H 0.4-2.0 mmol/L Calcium Level 9.9 8.7-10.4 mg/dL Total Bilirubin 1.0 0.2-1.0 mg/dL Aspartate Amino Transferase (AST) 21 13-40 U/L Alanine Aminotransferase (ALT) 22 7-40 U/L Alkaline Phosphatase 187 H 46-116 U/L Ammonia < 10 L 11-32 umol/L Creatine Kinase 36 34-145 U/L Total Protein 8.1 5.7-8.2 g/dL Albumin 4.8 3.2-4.8 g/dL Salicylates Level < 3.0 -30 mg/dL Acetaminophen Level < 2.0 L 10.0-20.0 UG/ML Assessment Acute kidney injury hemodynamically mediated Rule out urinary tract infection Volume depletion in the setting of starvation from acute catatonia Recommend IV fluid if able, can do saline boluses Treatment and workup rule out urinary infection obtain urinalysis Chronic kidney disease stage [address] [facility] Acute altered mental state with acute catatonia history of bipolar disorder Seen by Psychiatry Defer sedation and treatment management to them they are recommending inpatient psych if patient is medically stable History of pulmonary embolism on Eliquis Resume anticoagulation Diabetes Diabetic treatment as per hospital protocol Renal function today is closer to patient's outpatient baseline there is no indication for dialysis recommend conservative management treatment Rest of care as per primary medical team Plan discussed with daughter at bedside as patient was refusing to participate in interview Plan discussed with: Daughter GERHARD MANRIQUE MD Jun 15, 2025 16:55
[2025-06-15] MEDS: LORazepam 2MG/ML-1ML VIAL IV PRN (17:20)
[2025-06-15 19:05] LABS: Urine Protein, UAD TRACE (Negative)
[2025-06-15 19:14] LABS: Benzodiazephine Screen, Urine Neg (NEGATIVE)
[2025-06-15 19:16] LABS: Amphetamine Screen, Urine Neg (NEGATIVE); Barbiturate Scree,Urine Neg (NEGATIVE); Cannabinoid Screen, Urine Neg (NEGATIVE); Cocaine Screen, Urine Neg (NEGATIVE); Opiate Scree,Urine Neg (NEGATIVE); Phencyclidine Screen, Urine Neg (NEGATIVE)
--- NOTE | 2025-06-15 19:18 | DVHPN2 ---
Subjective In bed confused, Changes from previous H/P or p: No Changes Eyes: No Pain, No Vision change, No Conjunctivae inflammation, No Eyelid inflammation, No Other, No Redness ENT: No Ear pain, No Ear discharge, No Nose pain, No Nose discharge, No Nose congestion, No Mouth pain, No Mouth swelling, No Throat pain, No Throat swelling, No Other Cardiovascular: No Chest Pain, No Palpitations, No Orthopnea, No Paroxysmal Noc. Dyspnea, No Edema, No Lt Headedness, No Other Respiratory: No Cough, No Dry, No Shortness of breath, No SOB with excertion, No Wheezing, No Hemoptysis, No Pleuritic Pain, No Sputum, No Other Gastrointestinal: No Nausea, No Vomiting, No Abdominal Pain, No Diarrhea, No Constipation, No Melena, No Hematochezia, No Other Genitourinary: No Dysuria, No Frequency, No Incontinence, No Hematuria, No Retention, No Other Musculoskeletal: No other, No neck pain, No shoulder pain, No arm pain, No back pain, No hand pain, No leg pain, No foot pain Skin: No Rash, No Lesions, No Jaundice, No Bruising, No Other Objective Vitals Vital Signs Date Time Temp Pulse Resp B/P (MAP) Pulse Ox O2 Delivery O2 Flow Rate FiO2 06/15/25 13:00 99.0 98 18 99/62 (74) 96 99.0 06/15/25 08:00 Room Air* 0 21 General Appearance: Alert HEENT: Atraumatic Lungs: Clear to auscultation Cardiovascular: Regular rate, Normal S1, Normal S2 Abdomen: Normal bowel sounds Medications Current Medications Medications Dose Ordered Sig/Cooper Route Start Time Stop Time Status Last Admin Dose Admin Famotidine 20 mg DAILY IV 06/15/25 10:00 Atorvastatin Calcium 10 mg HS PO 06/14/25 22:00 06/14/25 22:00 10 MG Olanzapine 5 mg DAILY PO 06/15/25 10:00 Aspirin 81 mg DAILY PO 06/15/25 10:00 Fluoxetine HCl 20 mg DAILY PO 06/15/25 10:00 Diagnostic Test (Pha) 1 strip IQ4HR 06/15/25 00:00 06/15/25 16:00 1 STRIP Insulin Human Regular IQ4HR SC 06/15/25 00:00 06/15/25 08:13 6 UNITS Dextrose 50 ml UD PRN IV 06/14/25 22:00 Sodium Chloride 1,000 ml @ 60 mls/hr [id number] IV 06/14/25 22:00 06/15/25 04:03 60 MLS/HR Acetaminophen/ Hydrocodone Bitart 1 tab Q4HP PRN PO 06/14/25 22:00 Ondansetron HCl 4 mg Q4HP PRN IV 06/14/25 22:00 Docusate Sodium 100 mg BIDPRN PRN PO 06/14/25 22:00 Acetaminophen 650 mg Q6HP PRN PO 06/14/25 22:00 Nitroglycerin 0.4 mg Q5MINP PRN SL 06/14/25 22:00 Morphine Sulfate 2 mg Q30M PRN IV 06/14/25 22:00 Lorazepam 2 mg BID PRN IV 06/15/25 17:15 06/15/25 17:20 2 MG Laboratory Results Laboratory Tests 06/15/25 05:19 Chemistry Test 06/15/25 05:19 Albumin 4.4 g/dL (3.2-4.8) Calcium Level 9.6 mg/dL (8.7-10.4) Total Protein 7.5 g/dL (5.7-8.2) LFT Test 06/15/25 05:19 Alanine Aminotransferase (ALT) 22 U/L (7-40) Alkaline Phosphatase 173 U/L (46-116) H Aspartate Amino Transferase (AST) 17 U/L (13-40) Total Bilirubin 1.1 mg/dL (0.2-1.0) H Urinalysis Test 06/15/25 00:00 Urine Color Yellow (Yellow) Urine Clarity Clear (Clear) Urine pH 5.5 (5.0-9.0) Urine Specific [place] 1.021 (1.001-1.035) Urine Protein Trace (Negative) H Urine Ketones 1+ (Negative) H Urine Blood Negative /uL (Negative) Urine Nitrite Negative (Negative) Urine Bilirubin Negative (Negative) Urine Urobilinogen Normal mg/dL (Negative) Urine Leukocyte Esterase Negative /uL (Negative) Urine RBC <1 /hpf (0 - 4) Urine Microscopic WBC 1 /HPF (0-5) Urine Squamous Epithelial Cells Few /hpf (<5) Urine Bacteria None seen /hpf (None Seen) Urine Mucus Few (None Seen) Urine Glucose 4+ mg/dL (Normal) H Assessment/Plan Assessment/Plan Altered mental status Acute renal injury unknown baseline due to vasomotor nephropathy creat 1.9>1.7 Diabetes mellitus with hyperglycemia continue IVF Nephrology and psychiatry on consult Ativan Plan discussed with: Other (nurse) My Orders Orders - PRABHAKAR MCDUFFIE MD Procedure Category Date Status Time Lorazepam 2mg/Ml Inj PHA 06/15/25 In Process (Ativan Inj) 17:15 Date of Service: Jun 15, 2025 Billing Provider: PRABHAKAR MCDUFFIE MD Common Visit Codes: [id number] INP/OBS CARE(HIGH) PRABHAKAR MCDUFFIE MD Jun 15, 2025 19:18
[2025-06-16] VITALS (8 sets, daily range): BP systolic 99–127; BP diastolic 56–73; PULSE 79–93; RESP 16–20; TEMP 97.3–99; O2SAT 96–99
[2025-06-16] MEDS ORDERED: AMOX250C3 PO (00:08)
[2025-06-16] MEDS ORDERED: INSU1INJ19 SC (00:08)
[2025-06-16] MEDS ORDERED: ATOR40TA52 PO (00:08)
[2025-06-16] MEDS ORDERED: OLAN1TAB82 PO (00:08)
[2025-06-16] MEDS ORDERED: PANT40TA2 PO (00:08)
[2025-06-16] MEDS ORDERED: AMAN100C22 PO (00:08)
[2025-06-16] MEDS ORDERED: APIX2.5T PO (00:08)
[2025-06-16 06:24] LABS: Anion Gap 10 (5-15); Carbon Dioxide 25 mmol/L (20-31); Chloride 104 mmol/L (98-107); Potassium 3.7 mmol/L (3.5-5.1); Sodium 139 mmol/L (136-145)
[2025-06-16 06:25] LABS: Calcium 9.3 mg/dL (8.7-10.4)
[2025-06-16 06:30] LABS: BUN/Creatinine Ratio 14.2 (10.0-20.0); Blood Urea Nitrogen 20 mg/dL (9-23)
[2025-06-16 06:35] LABS: Glucose 134 mg/dL (74-106)
--- NOTE | 2025-06-16 09:20 | DVHPN2 ---
Progress Note Date Seen: Jun 16, 2025 Medical Necessity Reason Pt with a Central, PICC or Fol: Yes The following are medically ne: Carrero Catheter Reason for carrero catheter: Bladder Retention/Obstruc Subjective Patient reports: Feels better Objective vital signs Vital Sign Date Time Temp Pulse Resp B/P (MAP) Pulse Ox O2 Delivery O2 Flow Rate FiO2 06/16/25 05:00 97.6 79 18 108/68 (81) 98 97.6 06/15/25 19:30 Room Air* 0 21 Total Intake and Output 06/15/25 06/15/25 06/16/25 15:00 23:00 07:00 Intake Total 200 ml 650 ml Output Total 1100 ml 202 ml Balance -900 ml 448 ml medications Current Medications Medications Dose Ordered Sig/Cooper Route Start Time Stop Time Status Last Admin Dose Admin Famotidine 20 mg DAILY IV 06/15/25 10:00 Atorvastatin Calcium 10 mg HS PO 06/14/25 22:00 06/15/25 22:22 10 MG Olanzapine 5 mg DAILY PO 06/15/25 10:00 Aspirin 81 mg DAILY PO 06/15/25 10:00 Fluoxetine HCl 20 mg DAILY PO 06/15/25 10:00 Diagnostic Test (Pha) 1 strip IQ4HR 06/15/25 00:00 06/16/25 08:16 1 STRIP Insulin Human Regular IQ4HR SC 06/15/25 00:00 06/15/25 23:51 9 UNITS Dextrose 50 ml UD PRN IV 06/14/25 22:00 Sodium Chloride 1,000 ml @ 60 mls/hr [id number] IV 06/14/25 22:00 06/16/25 05:26 60 MLS/HR Acetaminophen/ Hydrocodone Bitart 1 tab Q4HP PRN PO 06/14/25 22:00 Ondansetron HCl 4 mg Q4HP PRN IV 06/14/25 22:00 Docusate Sodium 100 mg BIDPRN PRN PO 06/14/25 22:00 Acetaminophen 650 mg Q6HP PRN PO 06/14/25 22:00 Nitroglycerin 0.4 mg Q5MINP PRN SL 06/14/25 22:00 Morphine Sulfate 2 mg Q30M PRN IV 06/14/25 22:00 Lorazepam 2 mg BID PRN IV 06/15/25 17:15 06/15/25 17:20 2 MG Examination: GENERAL:Abnormal, CVS:Normal, NEURO:Abnormal laboratory and microbiology Laboratory Tests 06/16/25 05:29 06/15/25 05:19 Test 06/16/25 05:29 Range/Units Serum Glucose 134 H 74-106 mg/dL Problem List/Assessment/Plan Problem List/Assessment/Plan Acute kidney injury hemodynamically mediated Volume depletion in the setting of starvation from acute catatonia unremarkable UA s/p carrero due to retention, remove carrero when behaviour improves IV saline bolus today MITA is resolving Chronic kidney disease stage [address] [facility] clinic baseline cr from clinic 1.5-1.6 Acute altered mental state with acute catatonia history of bipolar disorder Seen by Psychiatry Defer sedation and treatment management to them they are recommending inpatient psych if patient is medically stable History of pulmonary embolism on Eliquis Resume anticoagulation Diabetes Diabetic treatment as per hospital protocol Renal function today is back to baseline. From renal standpoint can remove carrero when following instructions Rest of care as per primary medical team Plan discussed with: Other (nurse) GERHARD MANRIQUE MD Jun 16, 2025 09:20
[2025-06-16] MEDS: SODIUM CHLORIDE 0.9% 1,000 ML IV ONE (09:30)
--- NOTE | 2025-06-16 18:14 | DVHPN2 ---
Subjective In bed confused, Reviewed: H&P Changes from previous H/P or p: No Changes Eyes: No Pain, No Vision change, No Conjunctivae inflammation, No Eyelid inflammation, No Other, No Redness ENT: No Ear pain, No Ear discharge, No Nose pain, No Nose discharge, No Nose congestion, No Mouth pain, No Mouth swelling, No Throat pain, No Throat swelling, No Other Cardiovascular: No Chest Pain, No Palpitations, No Orthopnea, No Paroxysmal Noc. Dyspnea, No Edema, No Lt Headedness, No Other Respiratory: No Cough, No Dry, No Shortness of breath, No SOB with excertion, No Wheezing, No Hemoptysis, No Pleuritic Pain, No Sputum, No Other Gastrointestinal: No Nausea, No Vomiting, No Abdominal Pain, No Diarrhea, No Constipation, No Melena, No Hematochezia, No Other Genitourinary: No Dysuria, No Frequency, No Incontinence, No Hematuria, No Retention, No Other Musculoskeletal: No other, No neck pain, No shoulder pain, No arm pain, No back pain, No hand pain, No leg pain, No foot pain Skin: No Rash, No Lesions, No Jaundice, No Bruising, No Other Objective Vitals Vital Signs Date Time Temp Pulse Resp B/P (MAP) Pulse Ox O2 Delivery O2 Flow Rate FiO2 06/16/25 16:30 99.0 87 18 115/62 (79) 98 99.0 06/16/25 08:00 Room Air* 0 21 Intake/Output Intake and Output 06/16/25 05:00 Intake Total 990 ml Output Total 1302 ml Balance -312 ml Intake Oral 990 ml Output Urine Total 1300 ml Stool Total 2 ml # Voids 1 General Appearance: Alert HEENT: Atraumatic Lungs: Clear to auscultation Cardiovascular: Regular rate, Normal S1, Normal S2 Abdomen: Normal bowel sounds Medications Current Medications Medications Dose Ordered Sig/Cooper Route Start Time Stop Time Status Last Admin Dose Admin Famotidine 20 mg DAILY IV 06/15/25 10:00 06/16/25 10:56 20 MG Atorvastatin Calcium 10 mg HS PO 06/14/25 22:00 06/15/25 22:22 10 MG Olanzapine 5 mg DAILY PO 06/15/25 10:00 06/16/25 10:56 5 MG Aspirin 81 mg DAILY PO 06/15/25 10:00 06/16/25 10:56 81 MG Fluoxetine HCl 20 mg DAILY PO 06/15/25 10:00 06/16/25 10:56 20 MG Diagnostic Test (Pha) 1 strip IQ4HR 06/15/25 00:00 06/16/25 16:00 1 STRIP Insulin Human Regular IQ4HR SC 06/15/25 00:00 06/16/25 12:00 6 UNITS Dextrose 50 ml UD PRN IV 06/14/25 22:00 Sodium Chloride 1,000 ml @ 60 mls/hr [id number] IV 06/14/25 22:00 06/16/25 05:26 60 MLS/HR Acetaminophen/ Hydrocodone Bitart 1 tab Q4HP PRN PO 06/14/25 22:00 Ondansetron HCl 4 mg Q4HP PRN IV 06/14/25 22:00 Docusate Sodium 100 mg BIDPRN PRN PO 06/14/25 22:00 Acetaminophen 650 mg Q6HP PRN PO 06/14/25 22:00 Nitroglycerin 0.4 mg Q5MINP PRN SL 06/14/25 22:00 Morphine Sulfate 2 mg Q30M PRN IV 06/14/25 22:00 Lorazepam 2 mg BID PRN IV 06/15/25 17:15 06/15/25 17:20 2 MG Laboratory Results Laboratory Tests 06/15/25 05:19 06/16/25 05:29 Chemistry Test 06/16/25 05:29 Calcium Level 9.3 mg/dL (8.7-10.4) Urinalysis Test 06/15/25 00:00 Urine Color Yellow (Yellow) Urine Clarity Clear (Clear) Urine pH 5.5 (5.0-9.0) Urine Specific [place] 1.021 (1.001-1.035) Urine Protein Trace (Negative) H Urine Ketones 1+ (Negative) H Urine Blood Negative /uL (Negative) Urine Nitrite Negative (Negative) Urine Bilirubin Negative (Negative) Urine Urobilinogen Normal mg/dL (Negative) Urine Leukocyte Esterase Negative /uL (Negative) Urine RBC <1 /hpf (0 - 4) Urine Microscopic WBC 1 /HPF (0-5) Urine Squamous Epithelial Cells Few /hpf (<5) Urine Bacteria None seen /hpf (None Seen) Urine Mucus Few (None Seen) Urine Glucose 4+ mg/dL (Normal) H Assessment/Plan Assessment/Plan Altered mental status Acute renal injury unknown baseline due to vasomotor nephropathy creat 1.9>1.7 Diabetes mellitus with hyperglycemia continue IVF Nephrology and psychiatry on consult Ativan Plan discussed with: Patient Date of Service: Jun 16, 2025 Billing Provider: PRABHAKAR MCDUFFIE MD Common Visit Codes: [id number] INP/OBS CARE(HIGH) PRABHAKAR MCDUFFIE MD Jun 16, 2025 18:14
[2025-06-17] VITALS (7 sets, daily range): BP systolic 123–148; BP diastolic 68–86; PULSE 69–92; RESP 16–19; TEMP 97.5–98; O2SAT 96–100
[2025-06-17 06:52] LABS: Anion Gap 13 (5-15); Potassium 3.9 mmol/L (3.5-5.1); Sodium 139 mmol/L (136-145)
[2025-06-17 06:53] LABS: Calcium 8.9 mg/dL (8.7-10.4)
[2025-06-17 06:55] LABS: Carbon Dioxide 19 mmol/L (20-31); Chloride 107 mmol/L (98-107)
[2025-06-17 06:58] LABS: BUN/Creatinine Ratio 7.6 (10.0-20.0); Blood Urea Nitrogen 11 mg/dL (9-23)
[2025-06-17 07:00] LABS: Glucose 185 mg/dL (74-106)
--- NOTE | 2025-06-17 10:47 | DVHPN2 ---
Progress Note Date Seen: Jun 17, 2025 Medical Necessity Reason Pt with a Central, PICC or Fol: Yes The following are medically ne: Carrero Catheter Reason for carrero catheter: Bladder Retention/Obstruc Subjective Patient reports: No new complaints Other Systems: Patient seen and examined by myself today in follow-up Objective vital signs Vital Sign Date Time Temp Pulse Resp B/P (MAP) Pulse Ox O2 Delivery O2 Flow Rate FiO2 06/17/25 08:50 97.5 74 16 141/81 (101) 100 97.5 06/17/25 08:00 Room Air* 0 21 Total Intake and Output 06/16/25 06/16/25 06/17/25 15:00 23:00 07:00 Intake Total 1500 ml 200 ml 800 ml Output Total 1000 ml 600 ml Balance 1500 ml -800 ml 200 ml medications Current Medications Medications Dose Ordered Sig/Cooper Route Start Time Stop Time Status Last Admin Dose Admin Famotidine 20 mg DAILY IV 06/15/25 10:00 06/17/25 09:06 20 MG Atorvastatin Calcium 10 mg HS PO 06/14/25 22:00 06/15/25 22:22 10 MG Olanzapine 5 mg DAILY PO 06/15/25 10:00 06/17/25 09:06 5 MG Aspirin 81 mg DAILY PO 06/15/25 10:00 06/17/25 09:06 81 MG Fluoxetine HCl 20 mg DAILY PO 06/15/25 10:00 06/17/25 09:06 20 MG Diagnostic Test (Pha) 1 strip IQ4HR 06/15/25 00:00 06/17/25 03:39 1 STRIP Insulin Human Regular IQ4HR SC 06/15/25 00:00 06/17/25 03:37 6 UNITS Dextrose 50 ml UD PRN IV 06/14/25 22:00 Sodium Chloride 1,000 ml @ 60 mls/hr [id number] IV 06/14/25 22:00 06/17/25 00:00 60 MLS/HR Acetaminophen/ Hydrocodone Bitart 1 tab Q4HP PRN PO 06/14/25 22:00 Ondansetron HCl 4 mg Q4HP PRN IV 06/14/25 22:00 Docusate Sodium 100 mg BIDPRN PRN PO 06/14/25 22:00 Acetaminophen 650 mg Q6HP PRN PO 06/14/25 22:00 Nitroglycerin 0.4 mg Q5MINP PRN SL 06/14/25 22:00 Morphine Sulfate 2 mg Q30M PRN IV 06/14/25 22:00 Lorazepam 2 mg BID PRN IV 06/15/25 17:15 06/17/25 02:39 2 MG Examination: LUNGS:Normal, CVS:Normal, MSK:Normal laboratory and microbiology Laboratory Tests 06/17/25 05:55 06/15/25 05:19 Test 06/17/25 05:55 Range/Units Serum Glucose 185 H 74-106 mg/dL Problem List/Assessment/Plan Problem List/Assessment/Plan Acute kidney injury superimposed Chronic Kidney Disease secondary hemodynamic mediated Diabetes mellitus type 2 Hypertension Pulmonary embolism on anticoagulation Acute catatonia Bipolar disorder has Recommendations Kidney function stable Chronic Kidney Disease stage IIIB Increased urine output Strict I&Os Check urine electrolytes and protein excretion Check kidney ultrasound Psych consult We will continue to follow up Plan discussed with: Patient FAZAL ALVAREZ MD Jun 17, 2025 10:47
--- NOTE | 2025-06-17 12:48 | DVHPN2 ---
Subjective In bed confused, Reviewed: H&P Changes from previous H/P or p: No Changes Eyes: No Pain, No Vision change, No Conjunctivae inflammation, No Eyelid inflammation, No Other, No Redness ENT: No Ear pain, No Ear discharge, No Nose pain, No Nose discharge, No Nose congestion, No Mouth pain, No Mouth swelling, No Throat pain, No Throat swelling, No Other Cardiovascular: No Chest Pain, No Palpitations, No Orthopnea, No Paroxysmal Noc. Dyspnea, No Edema, No Lt Headedness, No Other Respiratory: No Cough, No Dry, No Shortness of breath, No SOB with excertion, No Wheezing, No Hemoptysis, No Pleuritic Pain, No Sputum, No Other Gastrointestinal: No Nausea, No Vomiting, No Abdominal Pain, No Diarrhea, No Constipation, No Melena, No Hematochezia, No Other Genitourinary: No Dysuria, No Frequency, No Incontinence, No Hematuria, No Retention, No Other Musculoskeletal: No other, No neck pain, No shoulder pain, No arm pain, No back pain, No hand pain, No leg pain, No foot pain Skin: No Rash, No Lesions, No Jaundice, No Bruising, No Other Objective Vitals Vital Signs Date Time Temp Pulse Resp B/P (MAP) Pulse Ox O2 Delivery O2 Flow Rate FiO2 06/17/25 12:37 97.5 92 18 141/86 (104) 99 97.5 06/17/25 08:00 Room Air* 0 21 Intake/Output Intake and Output 06/17/25 07:00 Intake Total 2500 ml Output Total 1600 ml Balance 900 ml Intake Oral 1000 ml IV Total 1500 ml Output Urine Total 1600 ml General Appearance: Alert HEENT: Atraumatic Lungs: Clear to auscultation Cardiovascular: Regular rate, Normal S1, Normal S2 Abdomen: Normal bowel sounds Medications Current Medications Medications Dose Ordered Sig/Cooper Route Start Time Stop Time Status Last Admin Dose Admin Famotidine 20 mg DAILY IV 06/15/25 10:00 06/17/25 09:06 20 MG Atorvastatin Calcium 10 mg HS PO 06/14/25 22:00 06/15/25 22:22 10 MG Olanzapine 5 mg DAILY PO 06/15/25 10:00 06/17/25 09:06 5 MG Aspirin 81 mg DAILY PO 06/15/25 10:00 06/17/25 09:06 81 MG Fluoxetine HCl 20 mg DAILY PO 06/15/25 10:00 06/17/25 09:06 20 MG Diagnostic Test (Pha) 1 strip IQ4HR 06/15/25 00:00 06/17/25 11:35 1 STRIP Insulin Human Regular IQ4HR SC 06/15/25 00:00 06/17/25 11:42 9 UNITS Dextrose 50 ml UD PRN IV 06/14/25 22:00 Sodium Chloride 1,000 ml @ 60 mls/hr [id number] IV 06/14/25 22:00 06/17/25 00:00 60 MLS/HR Acetaminophen/ Hydrocodone Bitart 1 tab Q4HP PRN PO 06/14/25 22:00 Ondansetron HCl 4 mg Q4HP PRN IV 06/14/25 22:00 Docusate Sodium 100 mg BIDPRN PRN PO 06/14/25 22:00 Acetaminophen 650 mg Q6HP PRN PO 06/14/25 22:00 Nitroglycerin 0.4 mg Q5MINP PRN SL 06/14/25 22:00 Morphine Sulfate 2 mg Q30M PRN IV 06/14/25 22:00 Lorazepam 2 mg BID PRN IV 06/15/25 17:15 06/17/25 02:39 2 MG Laboratory Results Laboratory Tests 06/15/25 05:19 06/17/25 05:55 Chemistry Test 06/17/25 05:55 Calcium Level 8.9 mg/dL (8.7-10.4) Magnesium Level Pending Phosphorus Level Pending Urinalysis Test 06/15/25 00:00 Urine Color Yellow (Yellow) Urine Clarity Clear (Clear) Urine pH 5.5 (5.0-9.0) Urine Specific [place] 1.021 (1.001-1.035) Urine Protein Trace (Negative) H Urine Ketones 1+ (Negative) H Urine Blood Negative /uL (Negative) Urine Nitrite Negative (Negative) Urine Bilirubin Negative (Negative) Urine Urobilinogen Normal mg/dL (Negative) Urine Leukocyte Esterase Negative /uL (Negative) Urine RBC <1 /hpf (0 - 4) Urine Microscopic WBC 1 /HPF (0-5) Urine Squamous Epithelial Cells Few /hpf (<5) Urine Bacteria None seen /hpf (None Seen) Urine Mucus Few (None Seen) Urine Glucose 4+ mg/dL (Normal) H Assessment/Plan Assessment/Plan Altered mental status Acute renal injury unknown baseline due to vasomotor nephropathy creat 1.9>1.7>1.45 Diabetes mellitus with hyperglycemia continue IVF Nephrology and psychiatry on consult Ativan Consult social services aide for placement Plan discussed with: Patient My Orders Orders - PRABHAKAR MCDUFFIE MD Procedure Category Date Status Time * Hadoop Admin CONS 06/17/25 Verified Consult Date of Service: Jun 17, 2025 Billing Provider: PRABHAKAR MCDUFFIE MD Common Visit Codes: [id number] INP/OBS CARE(HIGH) PRABHAKAR MCDUFFIE MD Jun 17, 2025 12:48
[2025-06-17 14:54] LABS: Urine Protein, UAD Negative (Negative)
[2025-06-17 14:58] LABS: Protein, Urine 14.2 mg/dL (1-14)
[2025-06-17 15:51] LABS: Magnesium 1.7 mg/dL (1.6-2.6)
[2025-06-17] MEDS: HALOPERIDOL LACTATE 5 MG/ML INJ VIAL IM ONE (23:46)
[2025-06-18] VITALS (7 sets, daily range): BP systolic 115–147; BP diastolic 55–89; PULSE 84–116; RESP 17–20; TEMP 97–98.3; O2SAT 94–100
--- NOTE | 2025-06-18 10:43 | DVHPN2 ---
Progress Note Date Seen: Jun 18, 2025 Medical Necessity Reason Pt with a Central, PICC or Fol: Yes The following are medically ne: Carrero Catheter Reason for carrero catheter: Bladder Retention/Obstruc Subjective Patient reports: No new complaints Other Systems: Patient seen and examined by myself today in follow-up Objective vital signs Vital Sign Date Time Temp Pulse Resp B/P (MAP) Pulse Ox O2 Delivery O2 Flow Rate FiO2 06/18/25 09:00 97.0 94 19 137/81 (99) 96 97.0 06/17/25 20:00 Room Air* 0 21 Total Intake and Output 06/17/25 06/17/25 06/18/25 15:00 23:00 07:00 Intake Total 1610 ml 250 ml Output Total 1875 ml 1800 ml Balance -265 ml -1550 ml medications Current Medications Medications Dose Ordered Sig/Cooper Route Start Time Stop Time Status Last Admin Dose Admin Famotidine 20 mg DAILY IV 06/15/25 10:00 06/18/25 10:11 20 MG Atorvastatin Calcium 10 mg HS PO 06/14/25 22:00 06/17/25 22:02 10 MG Olanzapine 5 mg DAILY PO 06/15/25 10:00 06/18/25 10:12 5 MG Aspirin 81 mg DAILY PO 06/15/25 10:00 06/18/25 10:12 81 MG Fluoxetine HCl 20 mg DAILY PO 06/15/25 10:00 06/18/25 10:12 20 MG Diagnostic Test (Pha) 1 strip IQ4HR 06/15/25 00:00 06/18/25 04:00 1 STRIP Insulin Human Regular IQ4HR SC 06/15/25 00:00 06/17/25 20:27 2 UNITS Dextrose 50 ml UD PRN IV 06/14/25 22:00 Sodium Chloride 1,000 ml @ 60 mls/hr [id number] IV 06/14/25 22:00 06/18/25 10:16 60 MLS/HR Acetaminophen/ Hydrocodone Bitart 1 tab Q4HP PRN PO 06/14/25 22:00 Ondansetron HCl 4 mg Q4HP PRN IV 06/14/25 22:00 Docusate Sodium 100 mg BIDPRN PRN PO 06/14/25 22:00 Acetaminophen 650 mg Q6HP PRN PO 06/14/25 22:00 Nitroglycerin 0.4 mg Q5MINP PRN SL 06/14/25 22:00 Morphine Sulfate 2 mg Q30M PRN IV 06/14/25 22:00 Lorazepam 2 mg BID PRN IV 06/15/25 17:15 06/17/25 22:03 2 MG Examination: LUNGS:Normal, CVS:Normal, MSK:Normal laboratory and microbiology Laboratory Tests 06/17/25 05:55 06/15/25 05:19 Test 06/17/25 05:55 Range/Units Serum Glucose 185 H 74-106 mg/dL Problem List/Assessment/Plan Problem List/Assessment/Plan Acute kidney injury superimposed Chronic Kidney Disease secondary hemodynamic mediated, feNa > 2% Diabetes mellitus type 2 Hypertension Pulmonary embolism on anticoagulation Acute catatonia Bipolar disorder Hypophosphatemia Hypomagnesemia Recommendations Kidney function slowly improving Increased urine output Strict I&Os K-Phos IV piggyback Magnesium sulfate 2 g IV piggyback Check kidney ultrasound Psych consult We will continue to follow up Plan discussed with: Patient My Orders My Orders Orders - FAZAL ALVAREZ MD Procedure Category Date Status Time Potassium Phosphate PHA 06/18/25 Verified 10:45 Magnesium Quinten PHA 06/18/25 Verified 11:00 FAZAL ALVAREZ MD Jun 18, 2025 10:43
--- NOTE | 2025-06-18 11:57 | DVH ---
EXAM DESCRIPTION: RENAL ULTRASOUND CLINICAL HISTORY: [facility] COMPARISON: CT ABDOMEN PELVIS WITHOUT on DOS: 12/09/23, CT ABDOMEN PELVIS WITHOUT on DOS: 10/04/22 TECHNIQUE: Multiplanar ultrasound examination of the kidneys and urinary bladder was performed. FINDINGS: The right kidney measures 8.1 cm. No renal calculus. No hydronephrosis.. No solid renal masses. The left kidney measures 9.1 cm. No renal calculus. No hydronephrosis.. No solid renal masses. 1.7 cm simple left renal cyst. Renal cortices are echogenic bilaterally. The bladder is decompressed with a carrero catheter. IMPRESSION: 1. Echogenic atrophic kidneys, suggesting medical renal disease. No hydronephrosis.
[2025-06-18] MEDS: MAGNESIUM SULFATE 1GM/100ML 100 ML IV SCH (12:55)
[2025-06-18] MEDS: POTASSIUM PHOSPHATE 22 MEQ in SODIUM CHL 0.9% 100 ML IV ONE (12:55)
--- NOTE | 2025-06-18 13:13 | DVHPN2 ---
Subjective In bed confused, Reviewed: H&P Changes from previous H/P or p: No Changes Eyes: No Pain, No Vision change, No Conjunctivae inflammation, No Eyelid inflammation, No Other, No Redness ENT: No Ear pain, No Ear discharge, No Nose pain, No Nose discharge, No Nose congestion, No Mouth pain, No Mouth swelling, No Throat pain, No Throat swelling, No Other Cardiovascular: No Chest Pain, No Palpitations, No Orthopnea, No Paroxysmal Noc. Dyspnea, No Edema, No Lt Headedness, No Other Respiratory: No Cough, No Dry, No Shortness of breath, No SOB with excertion, No Wheezing, No Hemoptysis, No Pleuritic Pain, No Sputum, No Other Gastrointestinal: No Nausea, No Vomiting, No Abdominal Pain, No Diarrhea, No Constipation, No Melena, No Hematochezia, No Other Genitourinary: No Dysuria, No Frequency, No Incontinence, No Hematuria, No Retention, No Other Musculoskeletal: No other, No neck pain, No shoulder pain, No arm pain, No back pain, No hand pain, No leg pain, No foot pain Skin: No Rash, No Lesions, No Jaundice, No Bruising, No Other Objective Vitals Vital Signs Date Time Temp Pulse Resp B/P (MAP) Pulse Ox O2 Delivery O2 Flow Rate FiO2 06/18/25 09:00 97.0 94 19 137/81 (99) 96 97.0 06/17/25 20:00 Room Air* 0 21 Intake/Output Intake and Output 06/18/25 07:00 Intake Total 1860 ml Output Total 3675 ml Balance -1815 ml Intake Oral 1200 ml IV Total 660 ml Output Urine Total 3675 ml # Bowel Movements 2 General Appearance: Alert HEENT: Atraumatic Lungs: Clear to auscultation Cardiovascular: Regular rate, Normal S1, Normal S2 Abdomen: Normal bowel sounds Medications Current Medications Medications Dose Ordered Sig/Cooper Route Start Time Stop Time Status Last Admin Dose Admin Famotidine 20 mg DAILY IV 06/15/25 10:00 06/18/25 10:11 20 MG Atorvastatin Calcium 10 mg HS PO 06/14/25 22:00 06/17/25 22:02 10 MG Olanzapine 5 mg DAILY PO 06/15/25 10:00 06/18/25 10:12 5 MG Aspirin 81 mg DAILY PO 06/15/25 10:00 06/18/25 10:12 81 MG Fluoxetine HCl 20 mg DAILY PO 06/15/25 10:00 06/18/25 10:12 20 MG Diagnostic Test (Pha) 1 strip IQ4HR 06/15/25 00:00 06/18/25 04:00 1 STRIP Insulin Human Regular IQ4HR SC 06/15/25 00:00 06/17/25 20:27 2 UNITS Dextrose 50 ml UD PRN IV 06/14/25 22:00 Sodium Chloride 1,000 ml @ 60 mls/hr [id number] IV 06/14/25 22:00 06/18/25 10:16 60 MLS/HR Acetaminophen/ Hydrocodone Bitart 1 tab Q4HP PRN PO 06/14/25 22:00 Ondansetron HCl 4 mg Q4HP PRN IV 06/14/25 22:00 Docusate Sodium 100 mg BIDPRN PRN PO 06/14/25 22:00 Acetaminophen 650 mg Q6HP PRN PO 06/14/25 22:00 Nitroglycerin 0.4 mg Q5MINP PRN SL 06/14/25 22:00 Morphine Sulfate 2 mg Q30M PRN IV 06/14/25 22:00 Lorazepam 2 mg BID PRN IV 06/15/25 17:15 06/17/25 22:03 2 MG Laboratory Results Laboratory Tests 06/15/25 05:19 06/17/25 05:55 Urinalysis Test 06/17/25 13:10 Urine Color Light-yellow (Yellow) Urine Clarity Clear (Clear) Urine pH 5.0 (5.0-9.0) Urine Specific [place] 1.008 (1.001-1.035) Urine Protein Negative (Negative) Urine Ketones Negative (Negative) Urine Blood 3+ /uL (Negative) H Urine Nitrite Negative (Negative) Urine Bilirubin Negative (Negative) Urine Urobilinogen Normal mg/dL (Negative) Urine Leukocyte Esterase Negative /uL (Negative) Urine RBC 31 /hpf (0 - 4) Urine Microscopic WBC 2 /HPF (0-5) Urine Squamous Epithelial Cells Few /hpf (<5) Urine Bacteria None seen /hpf (None Seen) Urine Mucus Few (None Seen) Urine Creatinine 42.01 mg/dL (30.0-125.0) Urine Protein/Creatinine Ratio 0.34 Urine Sodium 54 mmol/L (40-220) Urine Glucose 4+ mg/dL (Normal) H Urine Total Protein 14.2 mg/dL (1-14) H Assessment/Plan Assessment/Plan Altered mental status Acute renal injury unknown baseline due to vasomotor nephropathy creat 1.9>1.7>1.45 Diabetes mellitus with hyperglycemia continue IVF Nephrology and psychiatry on consult Ativan Consult director social for placement Plan discussed with: Patient My Orders Orders - PRABHAKAR MCDUFFIE MD Procedure Category Date Status Time * [place] Operator CONS 06/17/25 Transmitted Consult 13:52 Soc Telemed Psych CONS 06/17/25 Transmitted Consult 16:13 Date of Service: Jun 18, 2025 Billing Provider: PRABHAKAR MCDUFFIE MD Common Visit Codes: [id number] INP/OBS CARE(HIGH) PRABHAKAR MCDUFFIE MD Jun 18, 2025 13:13
--- NOTE | 2025-06-18 18:25 | DVHINCON2 ---
Date of Service if different f: Jun 18, 2025 Time of Service: 18:21 Consultation ([facility]) Consulting Physician: JADEN GLYNN MD Labs Laboratory Tests Test 06/14/25 18:55 06/14/25 21:47 06/15/25 00:00 06/15/25 05:19 Ammonia < 10 umol/L (11-32) Creatine Kinase 36 U/L (34-145) Salicylates Level < 3.0 mg/dL (-30) Acetaminophen Level < 2.0 UG/ML (10.0-20.0) Lactic Acid Level 1.7 mmol/L (0.4-2.0) Troponin I High Sensitivity 4 ng/L (</=34) Urine Opiates Screen Neg (NEGATIVE) Urine Fentanyl Screen Neg (NEGATIVE) Urine Barbiturates Screen Neg (NEGATIVE) Urine Phencyclidine Screen Neg (NEGATIVE) Urine Amphetamines Screen Neg (NEGATIVE) Urine Benzodiazepines Screen Neg (NEGATIVE) Urine Cocaine Screen Neg (NEGATIVE) Urine Cannabinoids Screen Neg (NEGATIVE) White Blood Count 6.9 10^3/uL (4.4-10.8) Red Blood Count 4.69 10^6/uL (4.0-5.20) Hemoglobin 13.6 g/dL (12.2-16.2) Hematocrit 40.8 % (36.0-46.0) Mean Corpuscular Volume 87.1 fL (80.0-100.0) Mean Corpuscular Hemoglobin 29.0 pg (28.0-32.0) Mean Corpuscular Hemoglobin Concent 33.4 g/dL (32.0-36.0) Red Cell Distribution Width 15.8 % (11.8-14.3) Platelet Count 217 10^3/uL (140-450) Mean Platelet Volume 8.8 fL (6.9-10.8) Neutrophils (%) (Auto) 72.2 % (37.0-80.0) Lymphocytes (%) (Auto) 18.0 % (10.0-50.0) Monocytes (%) (Auto) 6.6 % (0.0-12.0) Eosinophils (%) (Auto) 2.8 % (0.0-7.0) Basophils (%) (Auto) 0.4 % (0.0-2.0) Neutrophils # (Auto) 5.0 10 ^3/uL (1.6-8.6) Lymphocytes # (Auto) 1.2 10 ^3/uL (0.4-5.4) Monocytes # (Auto) 0.5 10 ^3/uL (0-1.3) Eosinophils # (Auto) 0.2 10 ^3/uL (0-0.8) Basophils # (Auto) 0 10 ^3/uL (0-0.2) Nucleated Red Blood Cells 0.1 % Total Bilirubin 1.1 mg/dL (0.2-1.0) Aspartate Amino Transf (AST/SGOT) 17 U/L (13-40) Alanine Aminotransferase (ALT/SGPT) 22 U/L (7-40) Alkaline Phosphatase 173 U/L (46-116) Total Protein 7.5 g/dL (5.7-8.2) Albumin 4.4 g/dL (3.2-4.8) Test 06/17/25 05:55 06/17/25 13:10 06/17/25 14:30 06/18/25 13:11 Sodium Level 139 mmol/L (136-145) Potassium Level 3.9 mmol/L (3.5-5.1) Chloride Level 107 mmol/L (98-107) Carbon Dioxide Level 19 mmol/L (20-31) Anion Gap 13 (5-15) Blood Urea Nitrogen 11 mg/dL (9-23) Creatinine 1.45 mg/dL (0.550-1.02) Glomerular Filtration Rate Calc 40 mL/min (>90) BUN/Creatinine Ratio 7.6 (10.0-20.0) Serum Glucose 185 mg/dL (74-106) Calcium Level 8.9 mg/dL (8.7-10.4) Phosphorus Level 2.2 mg/dL (2.4-5.1) Magnesium Level 1.7 mg/dL (1.6-2.6) Urine Color Light-yellow (Yellow) Urine Clarity Clear (Clear) Urine pH 5.0 (5.0-9.0) Urine Specific [place] 1.008 (1.001-1.035) Urine Protein Negative (Negative) Urine Ketones Negative (Negative) Urine Blood 3+ /uL (Negative) Urine Nitrite Negative (Negative) Urine Bilirubin Negative (Negative) Urine Urobilinogen Normal mg/dL (Negative) Urine Leukocyte Esterase Negative /uL (Negative) Urine RBC 31 /hpf (0 - 4) Urine Microscopic WBC 2 /HPF (0-5) Urine Squamous Epithelial Cells Few /hpf (<5) Urine Bacteria None seen /hpf (None Seen) Urine Mucus Few (None Seen) Urine Creatinine 42.01 mg/dL (30.0-125.0) Urine Protein/Creatinine Ratio 0.34 Urine Sodium 54 mmol/L (40-220) Urine Glucose 4+ mg/dL (Normal) Urine Total Protein 14.2 mg/dL (1-14) Vitamin D 25-Hydroxy 54.4 ng/mL (30.0-100) Hemoglobin A1c 9.5 % A1C (<5.7) Test 06/18/25 16:37 Bedside Glucose 251 mg/dl (70-106) Appetite: Poor Vitals Vital Signs Date Time Temp Pulse Resp B/P (MAP) Pulse Ox O2 Delivery O2 Flow Rate FiO2 06/18/25 17:00 97.0 98 20 147/81 (103) 95 97.0 06/17/25 20:00 Room Air* 0 21 Current medications Current Medications Medications Dose Ordered Sig/Cooper Route Start Time Stop Time Status Last Admin Dose Admin Famotidine 20 mg DAILY IV 06/15/25 10:00 06/18/25 10:11 20 MG Atorvastatin Calcium 10 mg HS PO 06/14/25 22:00 06/17/25 22:02 10 MG Olanzapine 5 mg DAILY PO 06/15/25 10:00 06/18/25 10:12 5 MG Aspirin 81 mg DAILY PO 06/15/25 10:00 06/18/25 10:12 81 MG Fluoxetine HCl 20 mg DAILY PO 06/15/25 10:00 06/18/25 10:12 20 MG Diagnostic Test (Pha) 1 strip IQ4HR 06/15/25 00:00 06/18/25 16:35 1 STRIP Insulin Human Regular IQ4HR SC 06/15/25 00:00 06/17/25 20:27 2 UNITS Dextrose 50 ml UD PRN IV 06/14/25 22:00 Sodium Chloride 1,000 ml @ 60 mls/hr [id number] IV 06/14/25 22:00 06/18/25 10:16 60 MLS/HR Acetaminophen/ Hydrocodone Bitart 1 tab Q4HP PRN PO 06/14/25 22:00 Ondansetron HCl 4 mg Q4HP PRN IV 06/14/25 22:00 Docusate Sodium 100 mg BIDPRN PRN PO 06/14/25 22:00 Acetaminophen 650 mg Q6HP PRN PO 06/14/25 22:00 Nitroglycerin 0.4 mg Q5MINP PRN SL 06/14/25 22:00 Morphine Sulfate 2 mg Q30M PRN IV 06/14/25 22:00 Lorazepam 2 mg BID PRN IV 06/15/25 17:15 06/18/25 15:01 2 MG Treatment plan discussed: With staff Medication adjusted: Yes Labs ordered: No Psychotherapy provided: No PSYCHIATRY CONSULTATION INITIAL EVALUATION REASON FOR CONSULT: Determine need for psychiatric placement. HPI: This is a 64-year-old woman with a reported history of mood and psychotic disorders, currently taking Prozac 20 mg daily and Zyprexa 5 mg daily, who was brought in by ambulance after being found outside a crisis center with altered mental status (AMS). Upon admission, medical workup revealed acute kidney injury (MITA). Earlier in the day, the patient was described by nursing staff as calm and cooperative. However, her mental status later deterioratedshe became confused, agitated, and attempted to strike staff and leave her bed. During evaluation, the patient is alert but disoriented, able to state her name but incorrectly identifies her location as [place] and a school, and believes the year is 2019. She cannot explain why she is hospitalized and frequently becomes distracted, making unrelated requests (e.g., asking for colored pencils). She reports living with Filiberto and Altagracia and mentions having several daughters and [id number] named Leigh and Camilla. She denies hallucinations, suicidal ideation, or homicidal ideation. Thought processes are tangential, and she requires frequent redirection. Attempts to contact her daughter, Leigh (listed contact [phone]), for collateral history were unsuccessful (voicemail). Given the patients disorientation, distractibility, and cognitive fluctuation, presentation appears more consistent with delirium or medical encephalopathy rather than a primary psychiatric decompensation. PSYCHIATRIC HISTORY: DIAGNOSIS: Pt reports prior diagnoses, but cannot give details. Author mentioned various options including depression, bipolar disorder and schizophrenia, she says all of them. ADMISSIONS: Pt denies. MEDICATION TRIALS: unknown OUTPATIENT CARE: unknown THERAPY: unkown SI/SELF-INJURY/SUICIDE ATTEMPT: Pt denies history of self-injury or suicide attempt. SUBSTANCE USE: unknown RELEVANT MEDICAL HISTORY: DMII HLD MENTAL STATUS EXAMINATION: The patient appears stated age, mildly disheveled, and in hospital attire. She is alert but disoriented to place, time, and situation. Eye contact is intermittent. Behavior is distractible and intermittently restless; she requires frequent redirection. Speech is normal in rate and volume but tangential. Mood is described as fine, affect is labile and incongruent at times. Thought process is illogical and disorganized with loose associations. Thought content is without evidence of psychosis, paranoia, or suicidal/homicidal ideation. No hallucinations observed. Insight and judgment are impaired. Cognition is grossly limited; attention and memory are poor. DIFFERENTIAL DIAGNOSIS: Delirium secondary to medical condition Medication-induced delirium or interaction effect Major Neurocognitive Disorder with behavioral disturbance Unspecified Psychotic Disorder Unspecified Mood Disorder ASSESSMENT: This is a 64-year-old woman with a history of psychiatric illness, currently presenting with acute confusion, disorientation, and agitation in the context of MITA and recent behavioral changes. Her presentation cannot be clearly attributed to a decompensated psychotic or mood disorder. Rather, it is most consistent with delirium or altered mental status secondary to medical illness. There is no evidence of active psychosis, yeyo, or depressive episode requiring psychiatric admission. The patient does not meet criteria for a 5150 hold, as there is no indication of danger to self, danger to others, or grave disability from a psychiatric cause at this time. Primary focus should remain on medical stabilization and further assessment once mental status clears. RECOMMENDATIONS: 1. Legal: Patient does not meet 5150 criteria for DTS, DTO, or GD, until medical contribution sufficiently ruled out. 2. Disposition: Continue medical admission for stabilization and further workup of AMS. Psychiatry to re-consult once the patient is more clear, coherent, and oriented. 3. Medications: Continue Prozac 20 mg PO daily. Change Zyprexa 5 mg to bedtime dosing (QHS) to reduce daytime sedation and support sleep-wake regulation. Consider adding Melatonin 35 mg QHS to promote sleep. 4. Medical Considerations: - Prioritize management of medical contributors to AMS. - Rule out infection, medication side effects, or metabolic derangements contributing to confusion. - Ensure adequate hydration and sleep hygiene. 5. Other Recommendations: - Maintain a calm, low-stimulation environment. - Use reorientation cues (clock, calendar, familiar objects). - Avoid deliriogenic medications (anticholinergics, benzodiazepines, opioids if possible). Of note, RN says pt given Ativan this afternoon with no benefit. - Obtain collateral history from daughter Leigh when available for baseline cognition and psychiatric history. - Once medically stabilized, consider outpatient follow-up for long-term psychiatric medication management. Assessment/Diagnosis/Plan Reviewed: Consults, Care Plan, Labs, Medications JADEN GLYNN MD Jun 18, 2025 18:25
[2025-06-18] MEDS: HYDROcodone-ACET 5/325MG TAB PO PRN (20:11)
[2025-06-19] VITALS (7 sets, daily range): BP systolic 115–159; BP diastolic 68–77; PULSE 80–101; RESP 17–21; TEMP 97.3–98.2; O2SAT 93–98
[2025-06-19 10:44] LABS: Alanine Aminotransferase 23 U/L (7-40); Albumin 3.6 g/dL (3.2-4.8); Anion Gap 10 (5-15); BUN/Creatinine Ratio 8.6 (10.0-20.0); Blood Urea Nitrogen 12 mg/dL (9-23); Calcium 8.7 mg/dL (8.7-10.4); Carbon Dioxide 24 mmol/L (20-31); Chloride 107 mmol/L (98-107); Magnesium 1.9 mg/dL (1.6-2.6); Potassium 4.3 mmol/L (3.5-5.1); Sodium 141 mmol/L (136-145); Total Protein 6.2 g/dL (5.7-8.2)
[2025-06-19 10:45] LABS: Bilirubin, Total 0.4 mg/dL (0.2-1.0)
[2025-06-19 10:46] LABS: Alkaline Phosphatase 136 U/L (46-116); Glucose 201 mg/dL (74-106)
--- NOTE | 2025-06-19 11:47 | DVHPN2 ---
Progress Note Date Seen: Jun 19, 2025 Medical Necessity Reason Pt with a Central, PICC or Fol: Yes The following are medically ne: Carrero Catheter Reason for carrero catheter: Bladder Retention/Obstruc Subjective Patient reports: No new complaints Other Systems: Patient seen and examined by myself today in follow-up Objective vital signs Vital Sign Date Time Temp Pulse Resp B/P (MAP) Pulse Ox O2 Delivery O2 Flow Rate FiO2 06/19/25 09:00 97.7 89 21 130/75 (93) 94 97.7 06/19/25 08:00 Room Air* 0 21 Total Intake and Output 06/18/25 06/18/25 06/19/25 15:00 23:00 07:00 Intake Total 100 ml 2745 ml 610 ml Output Total 3000 ml 1050 ml Balance 100 ml -255 ml -440 ml medications Current Medications Medications Dose Ordered Sig/Cooper Route Start Time Stop Time Status Last Admin Dose Admin Famotidine 20 mg DAILY IV 06/15/25 10:00 06/19/25 09:34 20 MG Atorvastatin Calcium 10 mg HS PO 06/14/25 22:00 06/17/25 22:02 10 MG Olanzapine 5 mg DAILY PO 06/15/25 10:00 06/19/25 09:34 5 MG Aspirin 81 mg DAILY PO 06/15/25 10:00 06/19/25 09:34 81 MG Fluoxetine HCl 20 mg DAILY PO 06/15/25 10:00 06/19/25 10:03 20 MG Diagnostic Test (Pha) 1 strip IQ4HR 06/15/25 00:00 06/19/25 08:00 1 STRIP Insulin Human Regular IQ4HR SC 06/15/25 00:00 06/18/25 20:15 6 UNITS Dextrose 50 ml UD PRN IV 06/14/25 22:00 Sodium Chloride 1,000 ml @ 60 mls/hr [id number] IV 06/14/25 22:00 06/19/25 05:19 60 MLS/HR Acetaminophen/ Hydrocodone Bitart 1 tab Q4HP PRN PO 06/14/25 22:00 06/18/25 20:11 1 TAB Ondansetron HCl 4 mg Q4HP PRN IV 06/14/25 22:00 Docusate Sodium 100 mg BIDPRN PRN PO 06/14/25 22:00 Acetaminophen 650 mg Q6HP PRN PO 06/14/25 22:00 Nitroglycerin 0.4 mg Q5MINP PRN SL 06/14/25 22:00 Morphine Sulfate 2 mg Q30M PRN IV 06/14/25 22:00 Lorazepam 2 mg BID PRN IV 06/15/25 17:15 06/18/25 15:01 2 MG laboratory and microbiology Laboratory Tests 06/19/25 10:05 06/15/25 05:19 Test 06/19/25 10:05 Range/Units Serum Glucose 201 H 74-106 mg/dL Problem List/Assessment/Plan Problem List/Assessment/Plan Acute kidney injury superimposed Chronic Kidney Disease secondary hemodynamic mediated, feNa > 2% Diabetes mellitus type 2 , uncontrolled Hypertension Pulmonary embolism on anticoagulation Acute catatonia Bipolar disorder Hypophosphatemia Hypomagnesemia Recommendations Kidney function slowly improving Increased urine output Strict I&Os K-Phos IV piggyback Magnesium sulfate 2 g IV piggyback kidney ultrasound reported bilateral echogenic kidneys Psych consult We will continue to follow up Plan discussed with: Patient Dietary Evaluation Review Comments: 1) Refer Certified Nurses' Aide for diabetes education 2) Monitor PO intake, lab values, weight trend, and I/O Expected Outcomes/Goals: Lab values to improve FU 3-5 days FAZAL ALVAREZ MD Jun 19, 2025 11:47
--- NOTE | 2025-06-19 12:17 | DVHPN2 ---
Subjective In bed confused, Reviewed: H&P Changes from previous H/P or p: No Changes Eyes: No Pain, No Vision change, No Conjunctivae inflammation, No Eyelid inflammation, No Other, No Redness ENT: No Ear pain, No Ear discharge, No Nose pain, No Nose discharge, No Nose congestion, No Mouth pain, No Mouth swelling, No Throat pain, No Throat swelling, No Other Cardiovascular: No Chest Pain, No Palpitations, No Orthopnea, No Paroxysmal Noc. Dyspnea, No Edema, No Lt Headedness, No Other Respiratory: No Cough, No Dry, No Shortness of breath, No SOB with excertion, No Wheezing, No Hemoptysis, No Pleuritic Pain, No Sputum, No Other Gastrointestinal: No Nausea, No Vomiting, No Abdominal Pain, No Diarrhea, No Constipation, No Melena, No Hematochezia, No Other Genitourinary: No Dysuria, No Frequency, No Incontinence, No Hematuria, No Retention, No Other Musculoskeletal: No other, No neck pain, No shoulder pain, No arm pain, No back pain, No hand pain, No leg pain, No foot pain Skin: No Rash, No Lesions, No Jaundice, No Bruising, No Other Objective Vitals Vital Signs Date Time Temp Pulse Resp B/P (MAP) Pulse Ox O2 Delivery O2 Flow Rate FiO2 06/19/25 09:00 97.7 89 21 130/75 (93) 94 97.7 06/19/25 08:00 Room Air* 0 21 Intake/Output Intake and Output 06/19/25 05:00 Intake Total 2995 ml Output Total 4050 ml Balance -1055 ml Intake Oral 2150 ml IV Total 845 ml Output Urine Total 4050 ml General Appearance: Alert HEENT: Atraumatic Lungs: Clear to auscultation Cardiovascular: Regular rate, Normal S1, Normal S2 Abdomen: Normal bowel sounds Medications Current Medications Medications Dose Ordered Sig/Cooper Route Start Time Stop Time Status Last Admin Dose Admin Famotidine 20 mg DAILY IV 06/15/25 10:00 06/19/25 09:34 20 MG Atorvastatin Calcium 10 mg HS PO 06/14/25 22:00 06/17/25 22:02 10 MG Olanzapine 5 mg DAILY PO 06/15/25 10:00 06/19/25 09:34 5 MG Aspirin 81 mg DAILY PO 06/15/25 10:00 06/19/25 09:34 81 MG Fluoxetine HCl 20 mg DAILY PO 06/15/25 10:00 06/19/25 10:03 20 MG Diagnostic Test (Pha) 1 strip IQ4HR 06/15/25 00:00 06/19/25 08:00 1 STRIP Insulin Human Regular IQ4HR SC 06/15/25 00:00 06/18/25 20:15 6 UNITS Dextrose 50 ml UD PRN IV 06/14/25 22:00 Sodium Chloride 1,000 ml @ 60 mls/hr [id number] IV 06/14/25 22:00 06/19/25 05:19 60 MLS/HR Acetaminophen/ Hydrocodone Bitart 1 tab Q4HP PRN PO 06/14/25 22:00 06/18/25 20:11 1 TAB Ondansetron HCl 4 mg Q4HP PRN IV 06/14/25 22:00 Docusate Sodium 100 mg BIDPRN PRN PO 06/14/25 22:00 Acetaminophen 650 mg Q6HP PRN PO 06/14/25 22:00 Nitroglycerin 0.4 mg Q5MINP PRN SL 06/14/25 22:00 Morphine Sulfate 2 mg Q30M PRN IV 06/14/25 22:00 Lorazepam 2 mg BID PRN IV 06/15/25 17:15 06/18/25 15:01 2 MG Laboratory Results Laboratory Tests 06/15/25 05:19 06/19/25 10:05 Chemistry Test 06/19/25 10:05 Albumin 3.6 g/dL (3.2-4.8) Calcium Level 8.7 mg/dL (8.7-10.4) Magnesium Level 1.9 mg/dL (1.6-2.6) Phosphorus Level 3.0 mg/dL (2.4-5.1) Total Protein 6.2 g/dL (5.7-8.2) LFT Test 06/19/25 10:05 Alanine Aminotransferase (ALT) 23 U/L (7-40) Alkaline Phosphatase 136 U/L (46-116) H Aspartate Amino Transferase (AST) 25 U/L (13-40) Total Bilirubin 0.4 mg/dL (0.2-1.0) HgA1c, TSH Test 06/18/25 13:11 Hemoglobin A1c 9.5 % A1C (<5.7) H Urinalysis Test 06/17/25 13:10 Urine Color Light-yellow (Yellow) Urine Clarity Clear (Clear) Urine pH 5.0 (5.0-9.0) Urine Specific [place] 1.008 (1.001-1.035) Urine Protein Negative (Negative) Urine Ketones Negative (Negative) Urine Blood 3+ /uL (Negative) H Urine Nitrite Negative (Negative) Urine Bilirubin Negative (Negative) Urine Urobilinogen Normal mg/dL (Negative) Urine Leukocyte Esterase Negative /uL (Negative) Urine RBC 31 /hpf (0 - 4) Urine Microscopic WBC 2 /HPF (0-5) Urine Squamous Epithelial Cells Few /hpf (<5) Urine Bacteria None seen /hpf (None Seen) Urine Mucus Few (None Seen) Urine Creatinine 42.01 mg/dL (30.0-125.0) Urine Protein/Creatinine Ratio 0.34 Urine Sodium 54 mmol/L (40-220) Urine Glucose 4+ mg/dL (Normal) H Urine Total Protein 14.2 mg/dL (1-14) H Assessment/Plan Assessment/Plan Altered mental status Acute renal injury unknown baseline due to vasomotor nephropathy creat 1.9>1.7>1.45 Diabetes mellitus with hyperglycemia Acute metabolic encephalopathy due to uremia continue IVF Nephrology and psychiatry on consult Ativan Consult social sciences research scientist for placement Plan discussed with: Patient Date of Service: Jun 19, 2025 Billing Provider: PRABHAKAR MCDUFFIE MD Common Visit Codes: [id number] INP/OBS CARE(HIGH) PRABHAKAR MCDUFFIE MD Jun 19, 2025 12:17
[2025-06-20] VITALS (7 sets, daily range): BP systolic 106–140; BP diastolic 52–89; PULSE 81–89; RESP 16–18; TEMP 97.6–98.1; O2SAT 90–98
[2025-06-20 06:41] LABS: Alanine Aminotransferase 23 U/L (7-40); Albumin 3.5 g/dL (3.2-4.8); Anion Gap 11 (5-15); BUN/Creatinine Ratio 8.0 (10.0-20.0); Blood Urea Nitrogen 10 mg/dL (9-23); Calcium 9.1 mg/dL (8.7-10.4); Carbon Dioxide 24 mmol/L (20-31); Potassium 4.1 mmol/L (3.5-5.1); Sodium 144 mmol/L (136-145); Total Protein 6.1 g/dL (5.7-8.2)
[2025-06-20 06:42] LABS: Bilirubin, Total 0.4 mg/dL (0.2-1.0)
[2025-06-20 06:43] LABS: Alkaline Phosphatase 128 U/L (46-116); Chloride 109 mmol/L (98-107); Glucose 119 mg/dL (74-106)
--- NOTE | 2025-06-20 09:40 | DVHPN2 ---
Subjective In bed confused, Reviewed: H&P Changes from previous H/P or p: No Changes Eyes: No Pain, No Vision change, No Conjunctivae inflammation, No Eyelid inflammation, No Other, No Redness ENT: No Ear pain, No Ear discharge, No Nose pain, No Nose discharge, No Nose congestion, No Mouth pain, No Mouth swelling, No Throat pain, No Throat swelling, No Other Cardiovascular: No Chest Pain, No Palpitations, No Orthopnea, No Paroxysmal Noc. Dyspnea, No Edema, No Lt Headedness, No Other Respiratory: No Cough, No Dry, No Shortness of breath, No SOB with excertion, No Wheezing, No Hemoptysis, No Pleuritic Pain, No Sputum, No Other Gastrointestinal: No Nausea, No Vomiting, No Abdominal Pain, No Diarrhea, No Constipation, No Melena, No Hematochezia, No Other Genitourinary: No Dysuria, No Frequency, No Incontinence, No Hematuria, No Retention, No Other Musculoskeletal: No other, No neck pain, No shoulder pain, No arm pain, No back pain, No hand pain, No leg pain, No foot pain Skin: No Rash, No Lesions, No Jaundice, No Bruising, No Other Objective Vitals Vital Signs Date Time Temp Pulse Resp B/P (MAP) Pulse Ox O2 Delivery O2 Flow Rate FiO2 06/20/25 05:00 97.9 86 18 122/76 (91) 95 97.9 06/19/25 20:00 Room Air* 0 21 Intake/Output Intake and Output 06/20/25 07:00 Intake Total 800 ml Output Total 2650 ml Balance -1850 ml Intake Oral 800 ml Output Urine Total 2650 ml General Appearance: Alert HEENT: Atraumatic Lungs: Clear to auscultation Cardiovascular: Regular rate, Normal S1, Normal S2 Abdomen: Normal bowel sounds Medications Current Medications Medications Dose Ordered Sig/Cooper Route Start Time Stop Time Status Last Admin Dose Admin Famotidine 20 mg DAILY IV 06/15/25 10:00 06/20/25 09:12 20 MG Atorvastatin Calcium 10 mg HS PO 06/14/25 22:00 06/17/25 22:02 10 MG Olanzapine 5 mg DAILY PO 06/15/25 10:00 06/19/25 09:34 5 MG Aspirin 81 mg DAILY PO 06/15/25 10:00 06/19/25 09:34 81 MG Fluoxetine HCl 20 mg DAILY PO 06/15/25 10:00 06/19/25 10:03 20 MG Diagnostic Test (Pha) 1 strip IQ4HR 06/15/25 00:00 06/20/25 08:00 1 STRIP Insulin Human Regular IQ4HR SC 06/15/25 00:00 06/19/25 20:40 2 UNITS Dextrose 50 ml UD PRN IV 06/14/25 22:00 Sodium Chloride 1,000 ml @ 60 mls/hr [id number] IV 06/14/25 22:00 06/19/25 19:02 60 MLS/HR Acetaminophen/ Hydrocodone Bitart 1 tab Q4HP PRN PO 06/14/25 22:00 06/18/25 20:11 1 TAB Ondansetron HCl 4 mg Q4HP PRN IV 06/14/25 22:00 Docusate Sodium 100 mg BIDPRN PRN PO 06/14/25 22:00 Acetaminophen 650 mg Q6HP PRN PO 06/14/25 22:00 Nitroglycerin 0.4 mg Q5MINP PRN SL 06/14/25 22:00 Morphine Sulfate 2 mg Q30M PRN IV 06/14/25 22:00 Lorazepam 2 mg BID PRN IV 06/15/25 17:15 06/18/25 15:01 2 MG Laboratory Results Laboratory Tests 06/15/25 05:19 06/20/25 05:25 Chemistry Test 06/19/25 10:05 06/20/25 05:25 Albumin 3.6 g/dL (3.2-4.8) 3.5 g/dL (3.2-4.8) Calcium Level 8.7 mg/dL (8.7-10.4) 9.1 mg/dL (8.7-10.4) Magnesium Level 1.9 mg/dL (1.6-2.6) Phosphorus Level 3.0 mg/dL (2.4-5.1) Total Protein 6.2 g/dL (5.7-8.2) 6.1 g/dL (5.7-8.2) LFT Test 06/19/25 10:05 06/20/25 05:25 Alanine Aminotransferase (ALT) 23 U/L (7-40) 23 U/L (7-40) Alkaline Phosphatase 136 U/L (46-116) H 128 U/L (46-116) H Aspartate Amino Transferase (AST) 25 U/L (13-40) 27 U/L (13-40) Total Bilirubin 0.4 mg/dL (0.2-1.0) 0.4 mg/dL (0.2-1.0) Urinalysis Test 06/17/25 13:10 Urine Color Light-yellow (Yellow) Urine Clarity Clear (Clear) Urine pH 5.0 (5.0-9.0) Urine Specific [place] 1.008 (1.001-1.035) Urine Protein Negative (Negative) Urine Ketones Negative (Negative) Urine Blood 3+ /uL (Negative) H Urine Nitrite Negative (Negative) Urine Bilirubin Negative (Negative) Urine Urobilinogen Normal mg/dL (Negative) Urine Leukocyte Esterase Negative /uL (Negative) Urine RBC 31 /hpf (0 - 4) Urine Microscopic WBC 2 /HPF (0-5) Urine Squamous Epithelial Cells Few /hpf (<5) Urine Bacteria None seen /hpf (None Seen) Urine Mucus Few (None Seen) Urine Creatinine 42.01 mg/dL (30.0-125.0) Urine Protein/Creatinine Ratio 0.34 Urine Sodium 54 mmol/L (40-220) Urine Glucose 4+ mg/dL (Normal) H Urine Total Protein 14.2 mg/dL (1-14) H Assessment/Plan Assessment/Plan Altered mental status Acute renal injury unknown baseline due to vasomotor nephropathy creat 1.9>1.7>1.45 Diabetes mellitus with hyperglycemia Acute metabolic encephalopathy due to uremia continue IVF Nephrology and psychiatry on consult Psychiatry needs to have encephalopathy resolved and [facility] Consult high school social science teacher for placement>SNF Dispo: SNF and psychiatry reeval Plan discussed with: Patient My Orders Orders - PRABHAKAR MCDUFFIE MD Procedure Category Date Status Time Basic Metabolic Panel LAB 06/21/25 Verified 05:00 Basic Metabolic Panel LAB 06/22/25 Verified 05:00 Basic Metabolic Panel LAB 06/23/25 Verified 05:00 Basic Metabolic Panel LAB 06/24/25 Verified 05:00 Basic Metabolic Panel LAB 06/25/25 Verified 05:00 Basic Metabolic Panel LAB 06/26/25 Verified 05:00 Basic Metabolic Panel LAB 06/27/25 Verified 05:00 Date of Service: Jun 20, 2025 Billing Provider: PRABHAKAR MCDUFFIE MD Common Visit Codes: [id number] INP/OBS CARE(HIGH) PRABHAKAR MCDUFFIE MD Jun 20, 2025 09:40
--- NOTE | 2025-06-20 14:06 | DVHPN2 ---
Progress Note Date Seen: Jun 20, 2025 Medical Necessity Reason Pt with a Central, PICC or Fol: Yes The following are medically ne: Carrero Catheter Reason for carrero catheter: Bladder Retention/Obstruc Subjective Patient reports: No new complaints Other Systems: Patient seen and examined by myself today in follow-up Objective vital signs Vital Sign Date Time Temp Pulse Resp B/P (MAP) Pulse Ox O2 Delivery O2 Flow Rate FiO2 06/20/25 08:00 82 06/20/25 08:00 Room Air* 0 21 06/20/25 05:00 97.9 18 122/76 (91) 95 97.9 Total Intake and Output 06/19/25 06/19/25 06/20/25 15:00 23:00 07:00 Intake Total 800 ml 0 ml Output Total 1500 ml 1150 ml Balance -700 ml -1150 ml medications Current Medications Medications Dose Ordered Sig/Cooper Route Start Time Stop Time Status Last Admin Dose Admin Famotidine 20 mg DAILY IV 06/15/25 10:00 06/20/25 09:12 20 MG Atorvastatin Calcium 10 mg HS PO 06/14/25 22:00 06/17/25 22:02 10 MG Olanzapine 5 mg DAILY PO 06/15/25 10:00 06/19/25 09:34 5 MG Aspirin 81 mg DAILY PO 06/15/25 10:00 06/19/25 09:34 81 MG Fluoxetine HCl 20 mg DAILY PO 06/15/25 10:00 06/19/25 10:03 20 MG Diagnostic Test (Pha) 1 strip IQ4HR 06/15/25 00:00 06/20/25 08:00 1 STRIP Insulin Human Regular IQ4HR SC 06/15/25 00:00 06/19/25 20:40 2 UNITS Dextrose 50 ml UD PRN IV 06/14/25 22:00 Sodium Chloride 1,000 ml @ 60 mls/hr [id number] IV 06/14/25 22:00 06/19/25 19:02 60 MLS/HR Acetaminophen/ Hydrocodone Bitart 1 tab Q4HP PRN PO 06/14/25 22:00 06/18/25 20:11 1 TAB Ondansetron HCl 4 mg Q4HP PRN IV 06/14/25 22:00 Docusate Sodium 100 mg BIDPRN PRN PO 06/14/25 22:00 Acetaminophen 650 mg Q6HP PRN PO 06/14/25 22:00 Nitroglycerin 0.4 mg Q5MINP PRN SL 06/14/25 22:00 Morphine Sulfate 2 mg Q30M PRN IV 06/14/25 22:00 Lorazepam 2 mg BID PRN IV 06/15/25 17:15 06/18/25 15:01 2 MG Examination: LUNGS:Normal, CVS:Normal, MSK:Normal laboratory and microbiology Laboratory Tests 06/20/25 05:25 06/15/25 05:19 Test 06/20/25 05:25 Range/Units Serum Glucose 119 H 74-106 mg/dL Problem List/Assessment/Plan Problem List/Assessment/Plan Acute kidney injury superimposed Chronic Kidney Disease secondary hemodynamic mediated, feNa > 2% Diabetes mellitus type 2 , uncontrolled Hypertension Pulmonary embolism on anticoagulation Acute catatonia Bipolar disorder Hypophosphatemia Hypomagnesemia Recommendations Kidney function continues to improve Increased urine output Strict I&Os K-Phos IV piggyback Magnesium sulfate 2 g IV piggyback kidney ultrasound reported bilateral echogenic kidneys Psych consult We will continue to follow up Plan discussed with: Patient Dietary Evaluation Review Comments: 1) Refer Domestic Freight Forwarder for diabetes education 2) Monitor PO intake, lab values, weight trend, and I/O Expected Outcomes/Goals: Lab values to improve FU 3-5 days FAZAL ALVAREZ MD Jun 20, 2025 14:06
[2025-06-20] MEDS: DOCUSATE SOD 100 MG CAP PO PRN (17:23)
[2025-06-21 01:00] VITALS: BP 132/79; PULSE 85; RESP 18; TEMP 97.9; O2SAT 93
[2025-06-21 05:00] VITALS: BP 134/80; PULSE 87; RESP 17; TEMP 98; O2SAT 94
[2025-06-21 07:30] LABS: Alanine Aminotransferase 25 U/L (7-40); Anion Gap 10 (5-15); BUN/Creatinine Ratio 8.6 (10.0-20.0); Blood Urea Nitrogen 12 mg/dL (9-23); Calcium 9.0 mg/dL (8.7-10.4); Carbon Dioxide 24 mmol/L (20-31); Chloride 106 mmol/L (98-107); Potassium 3.9 mmol/L (3.5-5.1); Sodium 140 mmol/L (136-145); Total Protein 6.1 g/dL (5.7-8.2)
[2025-06-21 07:31] LABS: Albumin 3.6 g/dL (3.2-4.8); Bilirubin, Total 0.4 mg/dL (0.2-1.0)
[2025-06-21 07:33] LABS: Alkaline Phosphatase 125 U/L (46-116); Glucose 162 mg/dL (74-106)
[2025-06-21 08:00] VITALS: PULSE 88; RESP 15; O2SAT 98
[2025-06-21 08:41] VITALS: BP 127/85; PULSE 86; RESP 20; TEMP 98.2; O2SAT 94
--- NOTE | 2025-06-21 10:46 | DVHPN2 ---
Progress Note Date Seen: Jun 21, 2025 Medical Necessity Reason Pt with a Central, PICC or Fol: Yes The following are medically ne: Carrero Catheter Reason for carrero catheter: Bladder Retention/Obstruc Subjective Patient reports: No new complaints Other Systems: Patient seen and examined by myself today in follow-up Objective vital signs Vital Sign Date Time Temp Pulse Resp B/P (MAP) Pulse Ox O2 Delivery O2 Flow Rate FiO2 06/21/25 08:41 98.2 86 20 127/85 (99) 94 98.2 06/20/25 20:00 Room Air* 0 21 Total Intake and Output 06/20/25 06/20/25 06/21/25 15:00 23:00 07:00 Intake Total 300 ml 250 ml Output Total 850 ml 1300 ml Balance -550 ml -1050 ml medications Current Medications Medications Dose Ordered Sig/Cooper Route Start Time Stop Time Status Last Admin Dose Admin Famotidine 20 mg DAILY IV 06/15/25 10:00 06/21/25 10:15 20 MG Atorvastatin Calcium 10 mg HS PO 06/14/25 22:00 06/20/25 22:24 10 MG Olanzapine 5 mg DAILY PO 06/15/25 10:00 06/21/25 10:15 5 MG Aspirin 81 mg DAILY PO 06/15/25 10:00 06/21/25 10:15 81 MG Fluoxetine HCl 20 mg DAILY PO 06/15/25 10:00 06/21/25 10:15 20 MG Diagnostic Test (Pha) 1 strip IQ4HR 06/15/25 00:00 06/21/25 07:53 1 STRIP Insulin Human Regular IQ4HR SC 06/15/25 00:00 06/21/25 08:05 2 UNITS Dextrose 50 ml UD PRN IV 06/14/25 22:00 Sodium Chloride 1,000 ml @ 60 mls/hr [id number] IV 06/14/25 22:00 06/21/25 05:30 60 MLS/HR Acetaminophen/ Hydrocodone Bitart 1 tab Q4HP PRN PO 06/14/25 22:00 06/18/25 20:11 1 TAB Ondansetron HCl 4 mg Q4HP PRN IV 06/14/25 22:00 Docusate Sodium 100 mg BIDPRN PRN PO 06/14/25 22:00 06/20/25 17:23 100 MG Acetaminophen 650 mg Q6HP PRN PO 06/14/25 22:00 Nitroglycerin 0.4 mg Q5MINP PRN SL 06/14/25 22:00 Morphine Sulfate 2 mg Q30M PRN IV 06/14/25 22:00 Lorazepam 2 mg BID PRN IV 06/15/25 17:15 06/18/25 15:01 2 MG Examination: LUNGS:Normal, CVS:Normal, MSK:Normal laboratory and microbiology Laboratory Tests 06/21/25 06:34 06/15/25 05:19 Test 06/21/25 06:34 Range/Units Serum Glucose 162 H 74-106 mg/dL Problem List/Assessment/Plan Problem List/Assessment/Plan Acute kidney injury superimposed Chronic Kidney Disease stage III secondary hemodynamic mediated, feNa > 2% Diabetes mellitus type 2 , uncontrolled Hypertension Pulmonary embolism on anticoagulation Mental status change Bipolar disorder Hypophosphatemia Hypomagnesemia Recommendations Kidney function slightly worsened today Increased urine output Strict I&Os K-Phos IV piggyback Magnesium sulfate 2 g IV piggyback Insulin sliding scale kidney ultrasound reported bilateral echogenic kidneys Psych consult We will continue to follow up Plan discussed with: Patient Dietary Evaluation Review Comments: 1) Refer Manager Event for diabetes education 2) Monitor PO intake, lab values, weight trend, and I/O Expected Outcomes/Goals: Lab values to improve FU 3-5 days FAZAL ALVAREZ MD Jun 21, 2025 10:46
--- NOTE | 2025-06-21 13:29 | DVHPN2 ---
Reviewed: Care Plan, H&P, Labs, Medications, Previous Orders, Radiology Changes from previous H/P or p: No Changes Eyes: No Pain, No Vision change, No Conjunctivae inflammation, No Eyelid inflammation, No Other, No Redness ENT: No Ear pain, No Ear discharge, No Nose pain, No Nose discharge, No Nose congestion, No Mouth pain, No Mouth swelling, No Throat pain, No Throat swelling, No Other Cardiovascular: No Chest Pain, No Palpitations, No Orthopnea, No Paroxysmal Noc. Dyspnea, No Edema, No Lt Headedness, No Other Respiratory: No Cough, No Dry, No Shortness of breath, No SOB with excertion, No Wheezing, No Hemoptysis, No Pleuritic Pain, No Sputum, No Other Gastrointestinal: No Nausea, No Vomiting, No Abdominal Pain, No Diarrhea, No Constipation, No Melena, No Hematochezia, No Other Genitourinary: No Dysuria, No Frequency, No Incontinence, No Hematuria, No Retention, No Other Musculoskeletal: No other, No neck pain, No shoulder pain, No arm pain, No back pain, No hand pain, No leg pain, No foot pain Skin: No Rash, No Lesions, No Jaundice, No Bruising, No Other Objective Vitals Vital Signs Date Time Temp Pulse Resp B/P (MAP) Pulse Ox O2 Delivery O2 Flow Rate FiO2 06/21/25 08:41 98.2 86 20 127/85 (99) 94 98.2 06/20/25 20:00 Room Air* 0 21 Intake/Output Intake and Output 06/21/25 07:00 Intake Total 550 ml Output Total 2150 ml Balance -1600 ml Intake Oral 550 ml Output Urine Total 2150 ml General Appearance: Alert HEENT: Atraumatic Lungs: Clear to auscultation Cardiovascular: Regular rate, Normal S1, Normal S2 Abdomen: Normal bowel sounds Medications Current Medications Medications Dose Ordered Sig/Cooper Route Start Time Stop Time Status Last Admin Dose Admin Famotidine 20 mg DAILY IV 06/15/25 10:00 06/21/25 10:15 20 MG Atorvastatin Calcium 10 mg HS PO 06/14/25 22:00 06/20/25 22:24 10 MG Olanzapine 5 mg DAILY PO 06/15/25 10:00 06/21/25 10:15 5 MG Aspirin 81 mg DAILY PO 06/15/25 10:00 06/21/25 10:15 81 MG Fluoxetine HCl 20 mg DAILY PO 06/15/25 10:00 06/21/25 10:15 20 MG Diagnostic Test (Pha) 1 strip IQ4HR 06/15/25 00:00 06/21/25 07:53 1 STRIP Insulin Human Regular IQ4HR SC 06/15/25 00:00 06/21/25 08:05 2 UNITS Dextrose 50 ml UD PRN IV 06/14/25 22:00 Sodium Chloride 1,000 ml @ 60 mls/hr [id number] IV 06/14/25 22:00 06/21/25 05:30 60 MLS/HR Acetaminophen/ Hydrocodone Bitart 1 tab Q4HP PRN PO 06/14/25 22:00 06/18/25 20:11 1 TAB Ondansetron HCl 4 mg Q4HP PRN IV 06/14/25 22:00 Docusate Sodium 100 mg BIDPRN PRN PO 06/14/25 22:00 06/20/25 17:23 100 MG Acetaminophen 650 mg Q6HP PRN PO 06/14/25 22:00 Nitroglycerin 0.4 mg Q5MINP PRN SL 06/14/25 22:00 Morphine Sulfate 2 mg Q30M PRN IV 06/14/25 22:00 Lorazepam 2 mg BID PRN IV 06/15/25 17:15 06/18/25 15:01 2 MG Laboratory Results Laboratory Tests 06/15/25 05:19 06/21/25 06:34 Chemistry Test 06/21/25 06:34 Albumin 3.6 g/dL (3.2-4.8) Calcium Level 9.0 mg/dL (8.7-10.4) Total Protein 6.1 g/dL (5.7-8.2) LFT Test 06/21/25 06:34 Alanine Aminotransferase (ALT) 25 U/L (7-40) Alkaline Phosphatase 125 U/L (46-116) H Aspartate Amino Transferase (AST) 28 U/L (13-40) Total Bilirubin 0.4 mg/dL (0.2-1.0) Urinalysis Test 06/17/25 13:10 Urine Color Light-yellow (Yellow) Urine Clarity Clear (Clear) Urine pH 5.0 (5.0-9.0) Urine Specific [place] 1.008 (1.001-1.035) Urine Protein Negative (Negative) Urine Ketones Negative (Negative) Urine Blood 3+ /uL (Negative) H Urine Nitrite Negative (Negative) Urine Bilirubin Negative (Negative) Urine Urobilinogen Normal mg/dL (Negative) Urine Leukocyte Esterase Negative /uL (Negative) Urine RBC 31 /hpf (0 - 4) Urine Microscopic WBC 2 /HPF (0-5) Urine Squamous Epithelial Cells Few /hpf (<5) Urine Bacteria None seen /hpf (None Seen) Urine Mucus Few (None Seen) Urine Creatinine 42.01 mg/dL (30.0-125.0) Urine Protein/Creatinine Ratio 0.34 Urine Sodium 54 mmol/L (40-220) Urine Glucose 4+ mg/dL (Normal) H Urine Total Protein 14.2 mg/dL (1-14) H Labs and/or images reviewed: Labs reviewed by me, Image(s) reviewed by me Assessment/Plan Assessment/Plan Covering for Dr. Izaguirre Acute kidney injury superimposed Chronic Kidney Disease stage III secondary hemodynamic mediated, feNa > 2% Diabetes mellitus type 2 , uncontrolled Hypertension Pulmonary embolism on anticoagulation Mental status change Bipolar disorder Hypophosphatemia Hypomagnesemia Schizophrenia: Patient refusing care tele psych consult by Dr Hawkins appreciated, [place] no 5150 placed on Zyprexa 5 mg p.o. HS and melatonin 5 mg p.o. HS Time spent 70 minutes Advanced care planning time 20 minutes Patient is full code Plan discussed with: Patient Date of Service: Jun 21, 2025 Billing Provider: UMER GIVENS MD Common Visit Codes: [id number] CARE 30-74 MIN UMER GIVENS MD Jun 21, 2025 13:28
[2025-06-21 20:00] VITALS: PULSE 92; RESP 18; O2SAT 97
[2025-06-21 21:00] VITALS: BP 140/75; PULSE 92; RESP 18; TEMP 97.9; O2SAT 98
[2025-06-21] MEDS: MELATONIN 5 MG TAB PO SCH (21:45)
[2025-06-22] VITALS (8 sets, daily range): BP systolic 126–157; BP diastolic 76–87; PULSE 82–90; RESP 17–20; TEMP 97.3–98.4; O2SAT 94–98
--- NOTE | 2025-06-22 08:35 | DVHPN2 ---
Reviewed: Care Plan, H&P, Labs, Medications, Previous Orders, Radiology Changes from previous H/P or p: No Changes Eyes: No Pain, No Vision change, No Conjunctivae inflammation, No Eyelid inflammation, No Other, No Redness ENT: No Ear pain, No Ear discharge, No Nose pain, No Nose discharge, No Nose congestion, No Mouth pain, No Mouth swelling, No Throat pain, No Throat swelling, No Other Cardiovascular: No Chest Pain, No Palpitations, No Orthopnea, No Paroxysmal Noc. Dyspnea, No Edema, No Lt Headedness, No Other Respiratory: No Cough, No Dry, No Shortness of breath, No SOB with excertion, No Wheezing, No Hemoptysis, No Pleuritic Pain, No Sputum, No Other Gastrointestinal: No Nausea, No Vomiting, No Abdominal Pain, No Diarrhea, No Constipation, No Melena, No Hematochezia, No Other Genitourinary: No Dysuria, No Frequency, No Incontinence, No Hematuria, No Retention, No Other Musculoskeletal: No other, No neck pain, No shoulder pain, No arm pain, No back pain, No hand pain, No leg pain, No foot pain Skin: No Rash, No Lesions, No Jaundice, No Bruising, No Other Objective Vitals Vital Signs Date Time Temp Pulse Resp B/P (MAP) Pulse Ox O2 Delivery O2 Flow Rate FiO2 06/22/25 04:54 97.3 84 18 157/87 (110) 98 97.3 06/21/25 20:00 Room Air* 0 21 Intake/Output Intake and Output 06/22/25 07:00 Intake Total 530 ml Output Total 2350 ml Balance -1820 ml Intake Oral 530 ml Output Urine Total 2350 ml General Appearance: Alert HEENT: Atraumatic Lungs: Clear to auscultation Cardiovascular: Regular rate, Normal S1, Normal S2 Abdomen: Normal bowel sounds Medications Current Medications Medications Dose Ordered Sig/Cooper Route Start Time Stop Time Status Last Admin Dose Admin Famotidine 20 mg DAILY IV 06/15/25 10:00 06/21/25 10:15 20 MG Atorvastatin Calcium 10 mg HS PO 06/14/25 22:00 06/20/25 22:24 10 MG Aspirin 81 mg DAILY PO 06/15/25 10:00 06/21/25 10:15 81 MG Fluoxetine HCl 20 mg DAILY PO 06/15/25 10:00 06/21/25 10:15 20 MG Diagnostic Test (Pha) 1 strip IQ4HR 06/15/25 00:00 06/22/25 08:09 1 STRIP Insulin Human Regular IQ4HR SC 06/15/25 00:00 06/22/25 04:18 2 UNITS Dextrose 50 ml UD PRN IV 06/14/25 22:00 Sodium Chloride 1,000 ml @ 60 mls/hr [id number] IV 06/14/25 22:00 06/21/25 20:13 60 MLS/HR Acetaminophen/ Hydrocodone Bitart 1 tab Q4HP PRN PO 06/14/25 22:00 06/18/25 20:11 1 TAB Ondansetron HCl 4 mg Q4HP PRN IV 06/14/25 22:00 Docusate Sodium 100 mg BIDPRN PRN PO 06/14/25 22:00 06/20/25 17:23 100 MG Acetaminophen 650 mg Q6HP PRN PO 06/14/25 22:00 Nitroglycerin 0.4 mg Q5MINP PRN SL 06/14/25 22:00 Morphine Sulfate 2 mg Q30M PRN IV 06/14/25 22:00 Lorazepam 2 mg BID PRN IV 06/15/25 17:15 06/18/25 15:01 2 MG Olanzapine 5 mg HS PO 06/22/25 22:00 Melatonin 5 mg HS PO 06/21/25 22:00 Laboratory Results Laboratory Tests 06/15/25 05:19 06/21/25 06:34 Urinalysis Test 06/17/25 13:10 Urine Color Light-yellow (Yellow) Urine Clarity Clear (Clear) Urine pH 5.0 (5.0-9.0) Urine Specific [place] 1.008 (1.001-1.035) Urine Protein Negative (Negative) Urine Ketones Negative (Negative) Urine Blood 3+ /uL (Negative) H Urine Nitrite Negative (Negative) Urine Bilirubin Negative (Negative) Urine Urobilinogen Normal mg/dL (Negative) Urine Leukocyte Esterase Negative /uL (Negative) Urine RBC 31 /hpf (0 - 4) Urine Microscopic WBC 2 /HPF (0-5) Urine Squamous Epithelial Cells Few /hpf (<5) Urine Bacteria None seen /hpf (None Seen) Urine Mucus Few (None Seen) Urine Creatinine 42.01 mg/dL (30.0-125.0) Urine Protein/Creatinine Ratio 0.34 Urine Sodium 54 mmol/L (40-220) Urine Glucose 4+ mg/dL (Normal) H Urine Total Protein 14.2 mg/dL (1-14) H Labs and/or images reviewed: Labs reviewed by me, Image(s) reviewed by me Assessment/Plan Assessment/Plan Covering for Dr. Izaguirre Acute kidney injury superimposed Chronic Kidney Disease stage III secondary hemodynamic mediated, feNa > 2% Diabetes mellitus type 2 , uncontrolled Hypertension Pulmonary embolism on anticoagulation Acute metabolic encephalopathy Bipolar disorder Hypophosphatemia Hypomagnesemia Schizophrenia: Patient refusing care tele psych consult by Dr Hawkins appreciated, [place] no 5150 placed on Zyprexa 5 mg p.o. HS and melatonin 5 mg p.o. HS Time spent 50 minutes Advanced care planning time 20 minutes Patient is full code Spoke with daughter Leigh on the phone [phone] and she prefers the patient to be transferred to [facility] in [place] when stable Plan discussed with: Patient My Orders Orders - UMER GIVENS MD Procedure Category Date Status Time Melatonin (Melatonin) PHA 06/21/25 In Process 22:00 Olanzapine Tablet PHA 06/22/25 In Process (Zyprexa Tablet) 22:00 Date of Service: Jun 22, 2025 Billing Provider: UMER GIVENS MD Common Visit Codes: [id number] INP/OBS CARE(HIGH) UMER GIVENS MD Jun 22, 2025 08:35
[2025-06-22 10:08] LABS: Potassium 4.3 mmol/L (3.5-5.1); Sodium 143 mmol/L (136-145)
[2025-06-22 10:09] LABS: Anion Gap 13 (5-15); Calcium 9.1 mg/dL (8.7-10.4); Carbon Dioxide 22 mmol/L (20-31)
[2025-06-22 10:14] LABS: BUN/Creatinine Ratio 6.7 (10.0-20.0); Blood Urea Nitrogen 9 mg/dL (9-23)
[2025-06-22 10:16] LABS: Chloride 108 mmol/L (98-107); Glucose 130 mg/dL (74-106)
--- NOTE | 2025-06-22 11:06 | DVHPN2 ---
Progress Note Date Seen: Jun 22, 2025 Medical Necessity Reason Pt with a Central, PICC or Fol: Yes The following are medically ne: Carrero Catheter Reason for carrero catheter: Bladder Retention/Obstruc Subjective Patient reports: No new complaints Other Systems: Patient seen and examined by myself today in follow-up Objective vital signs Vital Sign Date Time Temp Pulse Resp B/P (MAP) Pulse Ox O2 Delivery O2 Flow Rate FiO2 06/22/25 09:11 98.4 85 18 149/82 (104) 94 98.4 06/22/25 08:00 Room Air* 0 21 Total Intake and Output 06/21/25 06/21/25 06/22/25 15:00 23:00 07:00 Intake Total 240 ml 240 ml 50 ml Output Total 1700 ml 650 ml Balance 240 ml -1460 ml -600 ml medications Current Medications Medications Dose Ordered Sig/Cooper Route Start Time Stop Time Status Last Admin Dose Admin Famotidine 20 mg DAILY IV 06/15/25 10:00 06/22/25 08:28 20 MG Atorvastatin Calcium 10 mg HS PO 06/14/25 22:00 06/20/25 22:24 10 MG Aspirin 81 mg DAILY PO 06/15/25 10:00 06/22/25 08:27 81 MG Fluoxetine HCl 20 mg DAILY PO 06/15/25 10:00 06/22/25 08:27 20 MG Diagnostic Test (Pha) 1 strip IQ4HR 06/15/25 00:00 06/22/25 08:09 1 STRIP Insulin Human Regular IQ4HR SC 06/15/25 00:00 06/22/25 08:23 2 UNITS Dextrose 50 ml UD PRN IV 06/14/25 22:00 Sodium Chloride 1,000 ml @ 60 mls/hr [id number] IV 06/14/25 22:00 06/21/25 20:13 60 MLS/HR Acetaminophen/ Hydrocodone Bitart 1 tab Q4HP PRN PO 06/14/25 22:00 06/18/25 20:11 1 TAB Ondansetron HCl 4 mg Q4HP PRN IV 06/14/25 22:00 Docusate Sodium 100 mg BIDPRN PRN PO 06/14/25 22:00 06/20/25 17:23 100 MG Acetaminophen 650 mg Q6HP PRN PO 06/14/25 22:00 Nitroglycerin 0.4 mg Q5MINP PRN SL 06/14/25 22:00 Morphine Sulfate 2 mg Q30M PRN IV 06/14/25 22:00 Lorazepam 2 mg BID PRN IV 06/15/25 17:15 06/18/25 15:01 2 MG Olanzapine 5 mg HS PO 06/22/25 22:00 Melatonin 5 mg HS PO 06/21/25 22:00 Examination: LUNGS:Normal, CVS:Normal, MSK:Normal laboratory and microbiology Laboratory Tests 06/22/25 08:45 06/15/25 05:19 Test 06/22/25 08:45 Range/Units Serum Glucose 130 H 74-106 mg/dL Problem List/Assessment/Plan Problem List/Assessment/Plan Acute kidney injury superimposed Chronic Kidney Disease stage III secondary hemodynamic mediated, feNa > 2% Diabetes mellitus type 2 , uncontrolled Hypertension Pulmonary embolism on anticoagulation Mental status change Bipolar disorder Hypophosphatemia Hypomagnesemia Recommendations Kidney function slightly improving today Increased urine output Strict I&Os K-Phos IV piggyback Magnesium sulfate 2 g IV piggyback Insulin sliding scale kidney ultrasound reported bilateral echogenic kidneys Psych consult We will continue to follow up Plan discussed with: Patient Dietary Evaluation Review Comments: 1) Refer Sheet Pile Hammer Operator for diabetes education 2) Monitor PO intake, lab values, weight trend, and I/O Expected Outcomes/Goals: Lab values to improve FU 3-5 days FAZAL ALVAREZ MD Jun 22, 2025 11:06
[2025-06-22] MEDS: OLANZapine 5 MG TAB PO SCH (22:18)
[2025-06-23] VITALS (8 sets, daily range): BP systolic 130–161; BP diastolic 66–86; PULSE 66–85; RESP 16–18; TEMP 97.5–98.2; O2SAT 94–97
[2025-06-23 06:27] LABS: Sodium 142 mmol/L (136-145)
[2025-06-23 06:28] LABS: Carbon Dioxide 24 mmol/L (20-31)
[2025-06-23 06:29] LABS: Calcium 8.9 mg/dL (8.7-10.4)
[2025-06-23 06:33] LABS: BUN/Creatinine Ratio 9.2 (10.0-20.0); Blood Urea Nitrogen 12 mg/dL (9-23)
[2025-06-23 07:00] LABS: Glucose 150 mg/dL (74-106); Potassium 3.4 mmol/L (3.5-5.1)
--- NOTE | 2025-06-23 08:35 | DVHPN2 ---
Reviewed: Care Plan, H&P, Labs, Medications, Previous Orders, Radiology Changes from previous H/P or p: No Changes Eyes: No Pain, No Vision change, No Conjunctivae inflammation, No Eyelid inflammation, No Other, No Redness ENT: No Ear pain, No Ear discharge, No Nose pain, No Nose discharge, No Nose congestion, No Mouth pain, No Mouth swelling, No Throat pain, No Throat swelling, No Other Cardiovascular: No Chest Pain, No Palpitations, No Orthopnea, No Paroxysmal Noc. Dyspnea, No Edema, No Lt Headedness, No Other Respiratory: No Cough, No Dry, No Shortness of breath, No SOB with excertion, No Wheezing, No Hemoptysis, No Pleuritic Pain, No Sputum, No Other Gastrointestinal: No Nausea, No Vomiting, No Abdominal Pain, No Diarrhea, No Constipation, No Melena, No Hematochezia, No Other Genitourinary: No Dysuria, No Frequency, No Incontinence, No Hematuria, No Retention, No Other Musculoskeletal: No other, No neck pain, No shoulder pain, No arm pain, No back pain, No hand pain, No leg pain, No foot pain Skin: No Rash, No Lesions, No Jaundice, No Bruising, No Other Objective Vitals Vital Signs Date Time Temp Pulse Resp B/P (MAP) Pulse Ox O2 Delivery O2 Flow Rate FiO2 06/23/25 05:00 97.8 84 18 139/77 (97) 95 97.8 06/22/25 20:00 Room Air* 0 21 Intake/Output Intake and Output 06/23/25 07:00 Intake Total 2080 ml Output Total 1100 ml Balance 980 ml Intake Oral 1080 ml IV Total 1000 ml Output Urine Total 1100 ml # Voids 4 # Bowel Movements 1 General Appearance: Alert HEENT: Atraumatic Lungs: Clear to auscultation Cardiovascular: Regular rate, Normal S1, Normal S2 Abdomen: Normal bowel sounds Medications Current Medications Medications Dose Ordered Sig/Cooper Route Start Time Stop Time Status Last Admin Dose Admin Famotidine 20 mg DAILY IV 06/15/25 10:00 06/22/25 08:28 20 MG Atorvastatin Calcium 10 mg HS PO 06/14/25 22:00 06/22/25 22:18 10 MG Aspirin 81 mg DAILY PO 06/15/25 10:00 06/22/25 08:27 81 MG Fluoxetine HCl 20 mg DAILY PO 06/15/25 10:00 06/22/25 08:27 20 MG Diagnostic Test (Pha) 1 strip IQ4HR 06/15/25 00:00 06/23/25 08:03 1 STRIP Insulin Human Regular IQ4HR SC 06/15/25 00:00 06/23/25 04:36 3 UNITS Dextrose 50 ml UD PRN IV 06/14/25 22:00 Sodium Chloride 1,000 ml @ 60 mls/hr [id number] IV 06/14/25 22:00 06/23/25 05:28 60 MLS/HR Acetaminophen/ Hydrocodone Bitart 1 tab Q4HP PRN PO 06/14/25 22:00 06/18/25 20:11 1 TAB Ondansetron HCl 4 mg Q4HP PRN IV 06/14/25 22:00 Docusate Sodium 100 mg BIDPRN PRN PO 06/14/25 22:00 06/20/25 17:23 100 MG Acetaminophen 650 mg Q6HP PRN PO 06/14/25 22:00 Nitroglycerin 0.4 mg Q5MINP PRN SL 06/14/25 22:00 Morphine Sulfate 2 mg Q30M PRN IV 06/14/25 22:00 Lorazepam 2 mg BID PRN IV 06/15/25 17:15 06/18/25 15:01 2 MG Olanzapine 5 mg HS PO 06/22/25 22:00 06/22/25 22:18 5 MG Melatonin 5 mg HS PO 06/21/25 22:00 06/22/25 22:18 5 MG Laboratory Results Laboratory Tests 06/15/25 05:19 06/23/25 05:52 Chemistry Test 06/22/25 08:45 06/23/25 05:52 Calcium Level 9.1 mg/dL (8.7-10.4) 8.9 mg/dL (8.7-10.4) Urinalysis Test 06/17/25 13:10 Urine Color Light-yellow (Yellow) Urine Clarity Clear (Clear) Urine pH 5.0 (5.0-9.0) Urine Specific [place] 1.008 (1.001-1.035) Urine Protein Negative (Negative) Urine Ketones Negative (Negative) Urine Blood 3+ /uL (Negative) H Urine Nitrite Negative (Negative) Urine Bilirubin Negative (Negative) Urine Urobilinogen Normal mg/dL (Negative) Urine Leukocyte Esterase Negative /uL (Negative) Urine RBC 31 /hpf (0 - 4) Urine Microscopic WBC 2 /HPF (0-5) Urine Squamous Epithelial Cells Few /hpf (<5) Urine Bacteria None seen /hpf (None Seen) Urine Mucus Few (None Seen) Urine Creatinine 42.01 mg/dL (30.0-125.0) Urine Protein/Creatinine Ratio 0.34 Urine Sodium 54 mmol/L (40-220) Urine Glucose 4+ mg/dL (Normal) H Urine Total Protein 14.2 mg/dL (1-14) H Assessment/Plan Assessment/Plan Covering for Dr. Izaguirre Acute kidney injury superimposed Chronic Kidney Disease stage III secondary hemodynamic mediated, feNa > 2% Diabetes mellitus type 2 , uncontrolled Hypertension Pulmonary embolism on anticoagulation Acute metabolic encephalopathy Bipolar disorder Hypophosphatemia Hypomagnesemia Schizophrenia: Patient refusing care tele psych consult by Dr Hawkins appreciated, advised no 5150 placed on Zyprexa 5 mg p.o. HS and melatonin 5 mg p.o. HS Time spent 50 minutes Advanced care planning time 20 minutes Patient is full code Spoke with daughter Leigh on the phone [phone] and she prefers the patient to be transferred to [facility] in [place] when stable RN Leigh at bedside Plan discussed with: Patient Date of Service: Jun 23, 2025 Billing Provider: UMER GIVENS MD Common Visit Codes: [id number] INP/OBS CARE(HIGH) UMER GIVENS MD Jun 23, 2025 08:35
[2025-06-23 09:07] LABS: Anion Gap 8 (5-15)
--- NOTE | 2025-06-23 10:42 | DVHPN2 ---
Progress Note Date Seen: Jun 23, 2025 Medical Necessity Reason Pt with a Central, PICC or Fol: Yes The following are medically ne: Carrero Catheter Reason for carrero catheter: Bladder Retention/Obstruc Subjective Patient reports: No new complaints Other Systems: Patient seen and examined by myself today in follow-up Objective vital signs Vital Sign Date Time Temp Pulse Resp B/P (MAP) Pulse Ox O2 Delivery O2 Flow Rate FiO2 06/23/25 05:00 97.8 84 18 139/77 (97) 95 97.8 06/22/25 20:00 Room Air* 0 21 Total Intake and Output 06/22/25 06/22/25 06/23/25 15:00 23:00 07:00 Intake Total 360 ml 1720 ml Output Total 1100 ml Balance -740 ml 1720 ml medications Current Medications Medications Dose Ordered Sig/Cooper Route Start Time Stop Time Status Last Admin Dose Admin Famotidine 20 mg DAILY IV 06/15/25 10:00 06/23/25 09:04 20 MG Atorvastatin Calcium 10 mg HS PO 06/14/25 22:00 06/22/25 22:18 10 MG Aspirin 81 mg DAILY PO 06/15/25 10:00 06/23/25 09:04 81 MG Fluoxetine HCl 20 mg DAILY PO 06/15/25 10:00 06/23/25 09:04 20 MG Diagnostic Test (Pha) 1 strip IQ4HR 06/15/25 00:00 06/23/25 08:03 1 STRIP Insulin Human Regular IQ4HR SC 06/15/25 00:00 06/23/25 04:36 3 UNITS Dextrose 50 ml UD PRN IV 06/14/25 22:00 Sodium Chloride 1,000 ml @ 60 mls/hr [id number] IV 06/14/25 22:00 06/23/25 05:28 60 MLS/HR Acetaminophen/ Hydrocodone Bitart 1 tab Q4HP PRN PO 06/14/25 22:00 06/18/25 20:11 1 TAB Ondansetron HCl 4 mg Q4HP PRN IV 06/14/25 22:00 Docusate Sodium 100 mg BIDPRN PRN PO 06/14/25 22:00 06/20/25 17:23 100 MG Acetaminophen 650 mg Q6HP PRN PO 06/14/25 22:00 Nitroglycerin 0.4 mg Q5MINP PRN SL 06/14/25 22:00 Morphine Sulfate 2 mg Q30M PRN IV 06/14/25 22:00 Lorazepam 2 mg BID PRN IV 06/15/25 17:15 06/18/25 15:01 2 MG Olanzapine 5 mg HS PO 06/22/25 22:00 06/22/25 22:18 5 MG Melatonin 5 mg HS PO 06/21/25 22:00 06/22/25 22:18 5 MG Examination: LUNGS:Normal, CVS:Normal, MSK:Normal laboratory and microbiology Laboratory Tests 06/23/25 05:52 06/15/25 05:19 Test 06/23/25 05:52 Range/Units Serum Glucose 150 H 74-106 mg/dL Problem List/Assessment/Plan Problem List/Assessment/Plan Acute kidney injury superimposed Chronic Kidney Disease stage III secondary hemodynamic mediated, feNa > 2% Diabetes mellitus type 2 , uncontrolled Hypertension Pulmonary embolism on anticoagulation Mental status change Bipolar disorder Hypophosphatemia Hypomagnesemia Hypokalemia Recommendations Kidney function slightly improving today Increased urine output Strict I&Os KCL replacement K-Phos IV piggyback Magnesium sulfate 2 g IV piggyback Insulin sliding scale kidney ultrasound reported bilateral echogenic kidneys Psych consult We will continue to follow up Plan discussed with: Patient Dietary Evaluation Review Comments: 1) Refer Community Health Planning Director for diabetes education 2) Monitor PO intake, lab values, weight trend, and I/O Expected Outcomes/Goals: Lab values to improve FU 3-5 days FAZAL ALVAREZ MD Jun 23, 2025 10:42
[2025-06-23] MEDS: POTASSIUM EFFERVESENT TAB 25 MEQ PO SCH (11:07)
[2025-06-24 05:00] VITALS: BP 142/71; PULSE 68; RESP 17; TEMP 98.7; O2SAT 97
[2025-06-24 07:06] LABS: Anion Gap 10 (5-15); Carbon Dioxide 24 mmol/L (20-31); Potassium 4.0 mmol/L (3.5-5.1); Sodium 143 mmol/L (136-145)
[2025-06-24 07:08] LABS: Calcium 9.3 mg/dL (8.7-10.4)
[2025-06-24 07:12] LABS: BUN/Creatinine Ratio 8.5 (10.0-20.0); Blood Urea Nitrogen 10 mg/dL (9-23)
[2025-06-24 07:13] LABS: Chloride 109 mmol/L (98-107); Glucose 121 mg/dL (74-106)
[2025-06-24] MEDS: SODIUM CHLORIDE 0.9% 1,000 ML IV ONE (07:40)
[2025-06-24 08:00] VITALS: PULSE 74; RESP 18
--- NOTE | 2025-06-24 13:06 | DVHPN2 ---
Subjective In bed confused, Reviewed: Care Plan, H&P, Labs, Medications, Previous Orders, Radiology Changes from previous H/P or p: No Changes Eyes: No Pain, No Vision change, No Conjunctivae inflammation, No Eyelid inflammation, No Other, No Redness ENT: No Ear pain, No Ear discharge, No Nose pain, No Nose discharge, No Nose congestion, No Mouth pain, No Mouth swelling, No Throat pain, No Throat swelling, No Other Cardiovascular: No Chest Pain, No Palpitations, No Orthopnea, No Paroxysmal Noc. Dyspnea, No Edema, No Lt Headedness, No Other Respiratory: No Cough, No Dry, No Shortness of breath, No SOB with excertion, No Wheezing, No Hemoptysis, No Pleuritic Pain, No Sputum, No Other Gastrointestinal: No Nausea, No Vomiting, No Abdominal Pain, No Diarrhea, No Constipation, No Melena, No Hematochezia, No Other Genitourinary: No Dysuria, No Frequency, No Incontinence, No Hematuria, No Retention, No Other Musculoskeletal: No other, No neck pain, No shoulder pain, No arm pain, No back pain, No hand pain, No leg pain, No foot pain Skin: No Rash, No Lesions, No Jaundice, No Bruising, No Other Objective Vitals Vital Signs Date Time Temp Pulse Resp B/P (MAP) Pulse Ox O2 Delivery O2 Flow Rate FiO2 06/24/25 08:00 74 06/24/25 08:00 18 Room Air* 0 21 06/24/25 05:00 98.7 142/71 (94) 97 98.7 Intake/Output Intake and Output 06/24/25 07:00 Intake Total 0 ml Output Total 2770 ml Balance -2770 ml Intake Oral 0 ml Output Urine Total 2770 ml General Appearance: Alert HEENT: Atraumatic Lungs: Clear to auscultation Cardiovascular: Regular rate, Normal S1, Normal S2 Abdomen: Normal bowel sounds Medications Current Medications Medications Dose Ordered Sig/Cooper Route Start Time Stop Time Status Last Admin Dose Admin Famotidine 20 mg DAILY IV 06/15/25 10:00 06/24/25 08:28 20 MG Atorvastatin Calcium 10 mg HS PO 06/14/25 22:00 06/23/25 21:24 10 MG Aspirin 81 mg DAILY PO 06/15/25 10:00 06/23/25 09:04 81 MG Fluoxetine HCl 20 mg DAILY PO 06/15/25 10:00 06/23/25 09:04 20 MG Diagnostic Test (Pha) 1 strip IQ4HR 06/15/25 00:00 06/24/25 12:28 1 STRIP Insulin Human Regular IQ4HR SC 06/15/25 00:00 06/24/25 04:17 2 UNITS Dextrose 50 ml UD PRN IV 06/14/25 22:00 Sodium Chloride 1,000 ml @ 60 mls/hr [id number] IV 06/14/25 22:00 06/24/25 04:13 60 MLS/HR Ondansetron HCl 4 mg Q4HP PRN IV 06/14/25 22:00 Docusate Sodium 100 mg BIDPRN PRN PO 06/14/25 22:00 06/20/25 17:23 100 MG Acetaminophen 650 mg Q6HP PRN PO 06/14/25 22:00 Nitroglycerin 0.4 mg Q5MINP PRN SL 06/14/25 22:00 Lorazepam 2 mg BID PRN IV 06/15/25 17:15 06/18/25 15:01 2 MG Olanzapine 5 mg HS PO 06/22/25 22:00 06/23/25 21:24 5 MG Melatonin 5 mg HS PO 06/21/25 22:00 06/23/25 21:24 5 MG Laboratory Results Laboratory Tests 06/15/25 05:19 06/24/25 05:49 Chemistry Test 06/24/25 05:49 Calcium Level 9.3 mg/dL (8.7-10.4) Urinalysis Test 06/17/25 13:10 Urine Color Light-yellow (Yellow) Urine Clarity Clear (Clear) Urine pH 5.0 (5.0-9.0) Urine Specific [place] 1.008 (1.001-1.035) Urine Protein Negative (Negative) Urine Ketones Negative (Negative) Urine Blood 3+ /uL (Negative) H Urine Nitrite Negative (Negative) Urine Bilirubin Negative (Negative) Urine Urobilinogen Normal mg/dL (Negative) Urine Leukocyte Esterase Negative /uL (Negative) Urine RBC 31 /hpf (0 - 4) Urine Microscopic WBC 2 /HPF (0-5) Urine Squamous Epithelial Cells Few /hpf (<5) Urine Bacteria None seen /hpf (None Seen) Urine Mucus Few (None Seen) Urine Creatinine 42.01 mg/dL (30.0-125.0) Urine Protein/Creatinine Ratio 0.34 Urine Sodium 54 mmol/L (40-220) Urine Glucose 4+ mg/dL (Normal) H Urine Total Protein 14.2 mg/dL (1-14) H Assessment/Plan Assessment/Plan Altered mental status Acute renal injury unknown baseline due to vasomotor nephropathy creat 1.9>1.7>1.45 Diabetes mellitus with hyperglycemia Acute metabolic encephalopathy due to uremia continue IVF Nephrology and psychiatry on consult Psychiatry needs to have encephalopathy resolved and [facility] social media campaign manager for placement>SNF MRI ordered today Dispo: SNF and psychiatry reeval Plan discussed with: Other (nurse) My Orders Orders - PRABHAKAR MCDUFFIE MD Procedure Category Date Status Time Brain Head Wo Contrast MRI 06/24/25 Logged 12:39 Date of Service: Jun 24, 2025 Billing Provider: PRABHAKAR MCDUFFIE MD Common Visit Codes: [id number] INP/OBS CARE(HIGH) PRABHAKAR MCDUFFIE MD Jun 24, 2025 13:06
--- NOTE | 2025-06-24 16:07 | DVHPN2 ---
Progress Note Date Seen: Jun 24, 2025 Medical Necessity Reason Pt with a Central, PICC or Fol: Yes The following are medically ne: Carrero Catheter Reason for carrero catheter: Bladder Retention/Obstruc Subjective Patient reports: Other (pt sleeping) Review of Systems: Deferred Objective vital signs Vital Sign Date Time Temp Pulse Resp B/P (MAP) Pulse Ox O2 Delivery O2 Flow Rate FiO2 06/24/25 08:00 74 06/24/25 08:00 18 Room Air* 0 21 06/24/25 05:00 98.7 142/71 (94) 97 98.7 Total Intake and Output 06/23/25 06/23/25 06/24/25 15:00 23:00 07:00 Intake Total 0 ml 0 ml Output Total 1870 ml 900 ml Balance -1870 ml -900 ml medications Current Medications Medications Dose Ordered Sig/Cooper Route Start Time Stop Time Status Last Admin Dose Admin Famotidine 20 mg DAILY IV 06/15/25 10:00 06/24/25 08:28 20 MG Atorvastatin Calcium 10 mg HS PO 06/14/25 22:00 06/23/25 21:24 10 MG Aspirin 81 mg DAILY PO 06/15/25 10:00 06/23/25 09:04 81 MG Fluoxetine HCl 20 mg DAILY PO 06/15/25 10:00 06/23/25 09:04 20 MG Diagnostic Test (Pha) 1 strip IQ4HR 06/15/25 00:00 06/24/25 12:28 1 STRIP Insulin Human Regular IQ4HR SC 06/15/25 00:00 06/24/25 04:17 2 UNITS Dextrose 50 ml UD PRN IV 06/14/25 22:00 Ondansetron HCl 4 mg Q4HP PRN IV 06/14/25 22:00 Docusate Sodium 100 mg BIDPRN PRN PO 06/14/25 22:00 06/20/25 17:23 100 MG Acetaminophen 650 mg Q6HP PRN PO 06/14/25 22:00 Nitroglycerin 0.4 mg Q5MINP PRN SL 06/14/25 22:00 Lorazepam 2 mg BID PRN IV 06/15/25 17:15 06/18/25 15:01 2 MG Olanzapine 5 mg HS PO 06/22/25 22:00 06/23/25 21:24 5 MG Melatonin 5 mg HS PO 06/21/25 22:00 06/23/25 21:24 5 MG laboratory and microbiology Laboratory Tests 06/24/25 05:49 06/15/25 05:19 Test 06/24/25 05:49 Range/Units Serum Glucose 121 H 74-106 mg/dL Problem List/Assessment/Plan Problem List/Assessment/Plan Acute kidney injury superimposed Chronic Kidney Disease stage III secondary hemodynamic mediated, feNa > 2% Diabetes mellitus type 2 , uncontrolled Hypertension Pulmonary embolism on anticoagulation Mental status change Bipolar disorder Hypophosphatemia Hypomagnesemia Hypokalemia Recommendations Kidney function slightly improving today Increased urine output Strict I&Os Plan discussed with: Patient Dietary Evaluation Review Comments: 1) Refer Public Area Supervisor for diabetes education 2) Monitor PO intake, lab values, weight trend, and I/O Expected Outcomes/Goals: Lab values to improve FU 3-5 days TANISHA SCOTT MD Jun 24, 2025 16:06
[2025-06-24 20:00] VITALS: PULSE 67; PULSE 71; RESP 18; O2SAT 97
[2025-06-24 21:00] VITALS: BP 136/74; PULSE 67; RESP 17; TEMP 97.1; O2SAT 97
[2025-06-25 06:25] LABS: Potassium 4.1 mmol/L (3.5-5.1); Sodium 143 mmol/L (136-145)
[2025-06-25 06:26] LABS: Anion Gap 11 (5-15); Calcium 9.6 mg/dL (8.7-10.4); Carbon Dioxide 24 mmol/L (20-31)
[2025-06-25 06:31] LABS: BUN/Creatinine Ratio 4.3 (10.0-20.0); Glucose 104 mg/dL (74-106)
[2025-06-25 06:33] LABS: Blood Urea Nitrogen 6 mg/dL (9-23); Chloride 108 mmol/L (98-107)
[2025-06-25 08:00] VITALS: PULSE 68
[2025-06-25 08:46] VITALS: BP 148/71; PULSE 70; RESP 16; TEMP 98.1; O2SAT 98
[2025-06-25 12:48] VITALS: BP 140/69; PULSE 73; RESP 18; TEMP 98.3; O2SAT 96
--- NOTE | 2025-06-25 14:38 | DVHPN2 ---
Progress Note Date Seen: Jun 25, 2025 Medical Necessity Reason Pt with a Central, PICC or Fol: Yes The following are medically ne: Carrero Catheter Reason for carrero catheter: Bladder Retention/Obstruc Subjective Review of Systems: Deferred Objective vital signs Vital Sign Date Time Temp Pulse Resp B/P (MAP) Pulse Ox O2 Delivery O2 Flow Rate FiO2 06/25/25 12:48 98.3 73 18 140/69 (92) 96 98.3 06/25/25 07:30 Room Air* 0 21 Total Intake and Output 06/24/25 06/24/25 06/25/25 15:00 23:00 07:00 Intake Total 930 ml 100 ml Output Total 1000 ml 850 ml Balance -70 ml -750 ml medications Current Medications Medications Dose Ordered Sig/Cooper Route Start Time Stop Time Status Last Admin Dose Admin Famotidine 20 mg DAILY IV 06/15/25 10:00 06/24/25 08:28 20 MG Atorvastatin Calcium 10 mg HS PO 06/14/25 22:00 06/24/25 21:13 10 MG Aspirin 81 mg DAILY PO 06/15/25 10:00 06/23/25 09:04 81 MG Fluoxetine HCl 20 mg DAILY PO 06/15/25 10:00 06/23/25 09:04 20 MG Diagnostic Test (Pha) 1 strip IQ4HR 06/15/25 00:00 06/25/25 08:00 1 STRIP Insulin Human Regular IQ4HR SC 06/15/25 00:00 06/24/25 21:12 2 UNITS Dextrose 50 ml UD PRN IV 06/14/25 22:00 Ondansetron HCl 4 mg Q4HP PRN IV 06/14/25 22:00 Docusate Sodium 100 mg BIDPRN PRN PO 06/14/25 22:00 06/20/25 17:23 100 MG Acetaminophen 650 mg Q6HP PRN PO 06/14/25 22:00 Nitroglycerin 0.4 mg Q5MINP PRN SL 06/14/25 22:00 Lorazepam 2 mg BID PRN IV 06/15/25 17:15 06/18/25 15:01 2 MG Olanzapine 5 mg HS PO 06/22/25 22:00 06/24/25 21:12 5 MG Melatonin 5 mg HS PO 06/21/25 22:00 06/24/25 21:13 5 MG laboratory and microbiology Laboratory Tests 06/25/25 05:21 06/15/25 05:19 Test 06/25/25 05:21 Range/Units Serum Glucose 104 74-106 mg/dL Problem List/Assessment/Plan Problem List/Assessment/Plan Acute kidney injury superimposed Chronic Kidney Disease stage III secondary hemodynamic mediated, feNa > 2% Diabetes mellitus type 2 , uncontrolled Hypertension Pulmonary embolism on anticoagulation Mental status change Bipolar disorder Hypophosphatemia Hypomagnesemia Hypokalemia Recommendations Kidney function stable Increased urine output Strict I&Os Plan discussed with: Other Dietary Evaluation Review Comments: 1) Refer Mail Processing Machine Operator for diabetes education 2) Monitor PO intake, lab values, weight trend, and I/O Expected Outcomes/Goals: Lab values to improve FU 3-5 days TANISHA SCOTT MD Jun 25, 2025 14:38
[2025-06-25 16:35] VITALS: BP 144/83; PULSE 77; RESP 18; TEMP 98.5; O2SAT 96
--- NOTE | 2025-06-25 17:59 | DVHPN2 ---
Subjective In bed confused, Reviewed: Care Plan, H&P, Labs, Medications, Previous Orders, Radiology Changes from previous H/P or p: No Changes Eyes: No Pain, No Vision change, No Conjunctivae inflammation, No Eyelid inflammation, No Other, No Redness ENT: No Ear pain, No Ear discharge, No Nose pain, No Nose discharge, No Nose congestion, No Mouth pain, No Mouth swelling, No Throat pain, No Throat swelling, No Other Cardiovascular: No Chest Pain, No Palpitations, No Orthopnea, No Paroxysmal Noc. Dyspnea, No Edema, No Lt Headedness, No Other Respiratory: No Cough, No Dry, No Shortness of breath, No SOB with excertion, No Wheezing, No Hemoptysis, No Pleuritic Pain, No Sputum, No Other Gastrointestinal: No Nausea, No Vomiting, No Abdominal Pain, No Diarrhea, No Constipation, No Melena, No Hematochezia, No Other Genitourinary: No Dysuria, No Frequency, No Incontinence, No Hematuria, No Retention, No Other Musculoskeletal: No other, No neck pain, No shoulder pain, No arm pain, No back pain, No hand pain, No leg pain, No foot pain Skin: No Rash, No Lesions, No Jaundice, No Bruising, No Other Objective Vitals Vital Signs Date Time Temp Pulse Resp B/P (MAP) Pulse Ox O2 Delivery O2 Flow Rate FiO2 06/25/25 16:35 98.5 77 18 144/83 (103) 96 98.5 06/25/25 07:30 Room Air* 0 21 Intake/Output Intake and Output 06/25/25 05:00 Intake Total 1030 ml Output Total 1850 ml Balance -820 ml Intake Oral 400 ml IV Total 630 ml Output Urine Total 1850 ml General Appearance: Alert HEENT: Atraumatic Lungs: Clear to auscultation Cardiovascular: Regular rate, Normal S1, Normal S2 Abdomen: Normal bowel sounds Medications Current Medications Medications Dose Ordered Sig/Cooper Route Start Time Stop Time Status Last Admin Dose Admin Famotidine 20 mg DAILY IV 06/15/25 10:00 06/24/25 08:28 20 MG Atorvastatin Calcium 10 mg HS PO 06/14/25 22:00 06/24/25 21:13 10 MG Aspirin 81 mg DAILY PO 06/15/25 10:00 06/23/25 09:04 81 MG Fluoxetine HCl 20 mg DAILY PO 06/15/25 10:00 06/23/25 09:04 20 MG Ondansetron HCl 4 mg Q4HP PRN IV 06/14/25 22:00 Docusate Sodium 100 mg BIDPRN PRN PO 06/14/25 22:00 06/20/25 17:23 100 MG Acetaminophen 650 mg Q6HP PRN PO 06/14/25 22:00 Nitroglycerin 0.4 mg Q5MINP PRN SL 06/14/25 22:00 Lorazepam 2 mg BID PRN IV 06/15/25 17:15 06/18/25 15:01 2 MG Olanzapine 5 mg HS PO 06/22/25 22:00 06/24/25 21:12 5 MG Melatonin 5 mg HS PO 06/21/25 22:00 06/24/25 21:13 5 MG Laboratory Results Laboratory Tests 06/15/25 05:19 06/25/25 05:21 Chemistry Test 06/25/25 05:21 Calcium Level 9.6 mg/dL (8.7-10.4) Urinalysis Test 06/17/25 13:10 Urine Color Light-yellow (Yellow) Urine Clarity Clear (Clear) Urine pH 5.0 (5.0-9.0) Urine Specific [place] 1.008 (1.001-1.035) Urine Protein Negative (Negative) Urine Ketones Negative (Negative) Urine Blood 3+ /uL (Negative) H Urine Nitrite Negative (Negative) Urine Bilirubin Negative (Negative) Urine Urobilinogen Normal mg/dL (Negative) Urine Leukocyte Esterase Negative /uL (Negative) Urine RBC 31 /hpf (0 - 4) Urine Microscopic WBC 2 /HPF (0-5) Urine Squamous Epithelial Cells Few /hpf (<5) Urine Bacteria None seen /hpf (None Seen) Urine Mucus Few (None Seen) Urine Creatinine 42.01 mg/dL (30.0-125.0) Urine Protein/Creatinine Ratio 0.34 Urine Sodium 54 mmol/L (40-220) Urine Glucose 4+ mg/dL (Normal) H Urine Total Protein 14.2 mg/dL (1-14) H Assessment/Plan Assessment/Plan Altered mental status Acute renal injury unknown baseline due to vasomotor nephropathy creat 1.9>1.7>1.45 Diabetes mellitus with hyperglycemia Acute metabolic encephalopathy due to uremia continue IVF Nephrology and psychiatry on consult Psychiatry needs to have encephalopathy resolved and reevaluation Ativan Consult social insurance specialist for placement>SNF MRI ordered but unable to perform reconsult tele psychiatry Dispo: SNF and psychiatry reeval Plan discussed with: Other (nurse) Date of Service: Jun 25, 2025 Billing Provider: PRABHAKAR MCDUFFIE MD Common Visit Codes: [id number] INP/OBS CARE(HIGH) PRABHAKAR MCDUFFIE MD Jun 25, 2025 17:59
[2025-06-25 20:00] VITALS: PULSE 71; PULSE 84; RESP 18
[2025-06-26] VITALS (7 sets, daily range): BP systolic 93–154; BP diastolic 62–89; PULSE 82–114; RESP 18–20; TEMP 97.3–97.7; O2SAT 94–98
[2025-06-26 06:03] LABS: Anion Gap 16 (5-15); Calcium 9.8 mg/dL (8.7-10.4); Carbon Dioxide 22 mmol/L (20-31); Chloride 103 mmol/L (98-107); Potassium 3.9 mmol/L (3.5-5.1); Sodium 141 mmol/L (136-145)
[2025-06-26 06:09] LABS: BUN/Creatinine Ratio 7.9 (10.0-20.0); Blood Urea Nitrogen 11 mg/dL (9-23)
[2025-06-26 06:11] LABS: Glucose 116 mg/dL (74-106)
[2025-06-26] MEDS: ACETAMINOPHEN 325 MG TAB PO PRN (11:41)
--- NOTE | 2025-06-26 12:43 | DVH ---
MRI BRAIN WITHOUT CONTRAST History: CONFUSION Comparison: MR BRAIN WITHOUT on DOS: 10/11/24 Technique: Multi-sequence, multiplanar magnetic resonance images of the brain are reviewed. Findings: No acute hemorrhage or infarct is seen. Scattered T2/FLAIR hyperintense foci in the periventricular and subcortical white matter, suggestive of chronic microvascular disease. The ventricles and sulci are mildly enlarged, compatible with generalized parenchymal volume loss. There is no evidence of mass or mass effect. There are no abnormal extra-axial fluid collections. The major intracranial blood vessels retain normal flow voids consistent with their patency. Essentially clear paranasal sinuses. Mastoid air cells are clear.. IMPRESSION: No acute infarct. Chronic microvascular ischemic changes.
--- NOTE | 2025-06-26 13:54 | DVHPN2 ---
Subjective In bed confused, Reviewed: Care Plan, H&P, Labs, Medications, Previous Orders, Radiology Changes from previous H/P or p: No Changes Eyes: No Pain, No Vision change, No Conjunctivae inflammation, No Eyelid inflammation, No Other, No Redness ENT: No Ear pain, No Ear discharge, No Nose pain, No Nose discharge, No Nose congestion, No Mouth pain, No Mouth swelling, No Throat pain, No Throat swelling, No Other Cardiovascular: No Chest Pain, No Palpitations, No Orthopnea, No Paroxysmal Noc. Dyspnea, No Edema, No Lt Headedness, No Other Respiratory: No Cough, No Dry, No Shortness of breath, No SOB with excertion, No Wheezing, No Hemoptysis, No Pleuritic Pain, No Sputum, No Other Gastrointestinal: No Nausea, No Vomiting, No Abdominal Pain, No Diarrhea, No Constipation, No Melena, No Hematochezia, No Other Genitourinary: No Dysuria, No Frequency, No Incontinence, No Hematuria, No Retention, No Other Musculoskeletal: No other, No neck pain, No shoulder pain, No arm pain, No back pain, No hand pain, No leg pain, No foot pain Skin: No Rash, No Lesions, No Jaundice, No Bruising, No Other Objective Vitals Vital Signs Date Time Temp Pulse Resp B/P (MAP) Pulse Ox O2 Delivery O2 Flow Rate FiO2 06/26/25 09:00 98 18 93/62 (72) 94 06/26/25 07:30 Room Air* 0 21 06/26/25 05:00 97.3 97.3 Intake/Output Intake and Output 06/26/25 07:00 Intake Total 910 ml Output Total 1375 ml Balance -465 ml Intake Oral 910 ml Output Urine Total 1375 ml General Appearance: Alert HEENT: Atraumatic Lungs: Clear to auscultation Cardiovascular: Regular rate, Normal S1, Normal S2 Abdomen: Normal bowel sounds Medications Current Medications Medications Dose Ordered Sig/Cooper Route Start Time Stop Time Status Last Admin Dose Admin Famotidine 20 mg DAILY IV 06/15/25 10:00 06/24/25 08:28 20 MG Atorvastatin Calcium 10 mg HS PO 06/14/25 22:00 06/24/25 21:13 10 MG Aspirin 81 mg DAILY PO 06/15/25 10:00 06/23/25 09:04 81 MG Fluoxetine HCl 20 mg DAILY PO 06/15/25 10:00 06/26/25 11:39 20 MG Ondansetron HCl 4 mg Q4HP PRN IV 06/14/25 22:00 Docusate Sodium 100 mg BIDPRN PRN PO 06/14/25 22:00 06/20/25 17:23 100 MG Acetaminophen 650 mg Q6HP PRN PO 06/14/25 22:00 06/26/25 11:41 650 MG Nitroglycerin 0.4 mg Q5MINP PRN SL 06/14/25 22:00 Lorazepam 2 mg BID PRN IV 06/15/25 17:15 06/18/25 15:01 2 MG Olanzapine 5 mg HS PO 06/22/25 22:00 06/24/25 21:12 5 MG Melatonin 5 mg HS PO 06/21/25 22:00 06/24/25 21:13 5 MG Laboratory Results Laboratory Tests 06/15/25 05:19 06/26/25 05:31 Chemistry Test 06/26/25 05:31 Calcium Level 9.8 mg/dL (8.7-10.4) Urinalysis Test 06/17/25 13:10 Urine Color Light-yellow (Yellow) Urine Clarity Clear (Clear) Urine pH 5.0 (5.0-9.0) Urine Specific [place] 1.008 (1.001-1.035) Urine Protein Negative (Negative) Urine Ketones Negative (Negative) Urine Blood 3+ /uL (Negative) H Urine Nitrite Negative (Negative) Urine Bilirubin Negative (Negative) Urine Urobilinogen Normal mg/dL (Negative) Urine Leukocyte Esterase Negative /uL (Negative) Urine RBC 31 /hpf (0 - 4) Urine Microscopic WBC 2 /HPF (0-5) Urine Squamous Epithelial Cells Few /hpf (<5) Urine Bacteria None seen /hpf (None Seen) Urine Mucus Few (None Seen) Urine Creatinine 42.01 mg/dL (30.0-125.0) Urine Protein/Creatinine Ratio 0.34 Urine Sodium 54 mmol/L (40-220) Urine Glucose 4+ mg/dL (Normal) H Urine Total Protein 14.2 mg/dL (1-14) H Assessment/Plan Assessment/Plan Altered mental status Acute renal injury unknown baseline due to vasomotor nephropathy creat 1.9>1.7>1.45 Diabetes mellitus with hyperglycemia Acute metabolic encephalopathy due to uremia continue IVF Nephrology and psychiatry on consult Psychiatry needs to have encephalopathy resolved and reevaluation Ativan Consult social service liaison for placement>SNF MRI ordered but unable to perform reconsult tele psychiatry Dispo: SNF and psychiatry reeval Plan discussed with: Patient My Orders Orders - PRABHAKAR MCDUFFIE MD Procedure Category Date Status Time Soc Telemed Psych CONS 06/26/25 Transmitted Consult 09:45 Brain Head Wo Contrast MRI 06/26/25 Resulted 10:28 Pt Request For Service PT 06/26/25 Logged 10:28 Date of Service: Jun 26, 2025 Billing Provider: PRABHAKAR MCDUFFIE MD Common Visit Codes: [id number] INP/OBS CARE(HIGH) PRABHAKAR MCDUFFIE MD Jun 26, 2025 13:54
[2025-06-26] MEDS: SODIUM CHLORIDE 0.9% 1,000 ML IV SCH (18:00)
--- NOTE | 2025-06-26 18:11 | DVHPN2 ---
Progress Note Date Seen: Jun 26, 2025 Medical Necessity Reason Pt with a Central, PICC or Fol: Yes The following are medically ne: Carrero Catheter Reason for carrero catheter: Bladder Retention/Obstruc Subjective Patient reports: Other (altered) Review of Systems: Deferred Objective vital signs Vital Sign Date Time Temp Pulse Resp B/P (MAP) Pulse Ox O2 Delivery O2 Flow Rate FiO2 06/26/25 17:23 97.6 102 18 118/70 (86) 94 97.6 06/26/25 07:30 Room Air* 0 21 Total Intake and Output 06/25/25 06/25/25 06/26/25 15:00 23:00 07:00 Intake Total 240 ml 50 ml 620 ml Output Total 950 ml 425 ml Balance 240 ml -900 ml 195 ml medications Current Medications Medications Dose Ordered Sig/Cooper Route Start Time Stop Time Status Last Admin Dose Admin Famotidine 20 mg DAILY IV 06/15/25 10:00 06/24/25 08:28 20 MG Atorvastatin Calcium 10 mg HS PO 06/14/25 22:00 06/24/25 21:13 10 MG Aspirin 81 mg DAILY PO 06/15/25 10:00 06/23/25 09:04 81 MG Fluoxetine HCl 20 mg DAILY PO 06/15/25 10:00 06/26/25 11:39 20 MG Ondansetron HCl 4 mg Q4HP PRN IV 06/14/25 22:00 Docusate Sodium 100 mg BIDPRN PRN PO 06/14/25 22:00 06/20/25 17:23 100 MG Acetaminophen 650 mg Q6HP PRN PO 06/14/25 22:00 06/26/25 11:41 650 MG Nitroglycerin 0.4 mg Q5MINP PRN SL 06/14/25 22:00 Lorazepam 2 mg BID PRN IV 06/15/25 17:15 06/18/25 15:01 2 MG Olanzapine 5 mg HS PO 06/22/25 22:00 06/24/25 21:12 5 MG Melatonin 5 mg HS PO 06/21/25 22:00 06/24/25 21:13 5 MG Sodium Chloride 1,000 ml @ 75 mls/hr [id number] IV 06/26/25 18:00 Examination: NEURO:Abnormal laboratory and microbiology Laboratory Tests 06/26/25 05:31 06/15/25 05:19 Test 06/26/25 05:31 Range/Units Serum Glucose 116 H 74-106 mg/dL Problem List/Assessment/Plan Problem List/Assessment/Plan Acute kidney injury superimposed Chronic Kidney Disease stage III secondary hemodynamic mediated, feNa > 2% Diabetes mellitus type 2 , uncontrolled Hypertension Pulmonary embolism on anticoagulation Mental status change Bipolar disorder Hypophosphatemia Hypomagnesemia Hypokalemia Recommendations she does not have uremia// encephalopathy is not from uremia//bun wnl Kidney function stable Increased urine output Strict I&Os ivf 1 L Plan discussed with: Other My Orders My Orders Orders - TANISHA SCOTT MD Procedure Category Date Status Time Sodium Chloride 0.9% PHA 06/26/25 In Process 18:00 Dietary Evaluation Review Comments: 1) Refer Sponge Press Operator for diabetes education 2) Monitor PO intake, lab values, weight trend, and I/O Expected Outcomes/Goals: Lab values to improve FU 3-5 days TANISHA SCOTT MD Jun 26, 2025 18:11
[2025-06-27 05:00] VITALS: BP 130/74; PULSE 81; RESP 17; TEMP 98; O2SAT 97
[2025-06-27 06:56] LABS: Anion Gap 13 (5-15); Carbon Dioxide 23 mmol/L (20-31); Chloride 105 mmol/L (98-107); Potassium 3.7 mmol/L (3.5-5.1); Sodium 141 mmol/L (136-145)
[2025-06-27 06:58] LABS: Calcium 9.6 mg/dL (8.7-10.4)
[2025-06-27 07:02] LABS: BUN/Creatinine Ratio 9.5 (10.0-20.0); Blood Urea Nitrogen 13 mg/dL (9-23); Glucose 168 mg/dL (74-106)
[2025-06-27 08:00] VITALS: PULSE 78; RESP 18; O2SAT 97
[2025-06-27 08:45] VITALS: BP 103/58; PULSE 77; RESP 16; TEMP 97.5; O2SAT 97
--- NOTE | 2025-06-27 12:59 | DVHPN2 ---
Subjective In bed confused, Reviewed: Care Plan, H&P, Labs, Medications, Previous Orders, Radiology Changes from previous H/P or p: No Changes Eyes: No Pain, No Vision change, No Conjunctivae inflammation, No Eyelid inflammation, No Other, No Redness ENT: No Ear pain, No Ear discharge, No Nose pain, No Nose discharge, No Nose congestion, No Mouth pain, No Mouth swelling, No Throat pain, No Throat swelling, No Other Cardiovascular: No Chest Pain, No Palpitations, No Orthopnea, No Paroxysmal Noc. Dyspnea, No Edema, No Lt Headedness, No Other Respiratory: No Cough, No Dry, No Shortness of breath, No SOB with excertion, No Wheezing, No Hemoptysis, No Pleuritic Pain, No Sputum, No Other Gastrointestinal: No Nausea, No Vomiting, No Abdominal Pain, No Diarrhea, No Constipation, No Melena, No Hematochezia, No Other Genitourinary: No Dysuria, No Frequency, No Incontinence, No Hematuria, No Retention, No Other Musculoskeletal: No other, No neck pain, No shoulder pain, No arm pain, No back pain, No hand pain, No leg pain, No foot pain Skin: No Rash, No Lesions, No Jaundice, No Bruising, No Other Objective Vitals Vital Signs Date Time Temp Pulse Resp B/P (MAP) Pulse Ox O2 Delivery O2 Flow Rate FiO2 06/27/25 08:45 97.5 77 16 103/58 (73) 97 97.5 06/26/25 20:00 Room Air* 0 21 Intake/Output Intake and Output 06/27/25 07:00 Intake Total 1145 ml Output Total 1175 ml Balance -30 ml Intake Oral 1145 ml Output Urine Total 1175 ml # Bowel Movements 1 General Appearance: Alert HEENT: Atraumatic Lungs: Clear to auscultation Cardiovascular: Regular rate, Normal S1, Normal S2 Abdomen: Normal bowel sounds Medications Current Medications Medications Dose Ordered Sig/Cooper Route Start Time Stop Time Status Last Admin Dose Admin Famotidine 20 mg DAILY IV 06/15/25 10:00 06/24/25 08:28 20 MG Atorvastatin Calcium 10 mg HS PO 06/14/25 22:00 06/26/25 22:19 10 MG Aspirin 81 mg DAILY PO 06/15/25 10:00 06/23/25 09:04 81 MG Fluoxetine HCl 20 mg DAILY PO 06/15/25 10:00 06/26/25 11:39 20 MG Ondansetron HCl 4 mg Q4HP PRN IV 06/14/25 22:00 Docusate Sodium 100 mg BIDPRN PRN PO 06/14/25 22:00 06/20/25 17:23 100 MG Acetaminophen 650 mg Q6HP PRN PO 06/14/25 22:00 06/26/25 11:41 650 MG Nitroglycerin 0.4 mg Q5MINP PRN SL 06/14/25 22:00 Lorazepam 2 mg BID PRN IV 06/15/25 17:15 06/18/25 15:01 2 MG Olanzapine 5 mg HS PO 06/22/25 22:00 06/26/25 22:18 5 MG Melatonin 5 mg HS PO 06/21/25 22:00 06/26/25 22:19 5 MG Sodium Chloride 1,000 ml @ 75 mls/hr [id number] IV 06/26/25 18:00 06/27/25 01:00 75 MLS/HR Laboratory Results Laboratory Tests 06/15/25 05:19 06/27/25 05:20 Chemistry Test 06/27/25 05:20 Calcium Level 9.6 mg/dL (8.7-10.4) Urinalysis Test 06/17/25 13:10 Urine Color Light-yellow (Yellow) Urine Clarity Clear (Clear) Urine pH 5.0 (5.0-9.0) Urine Specific [place] 1.008 (1.001-1.035) Urine Protein Negative (Negative) Urine Ketones Negative (Negative) Urine Blood 3+ /uL (Negative) H Urine Nitrite Negative (Negative) Urine Bilirubin Negative (Negative) Urine Urobilinogen Normal mg/dL (Negative) Urine Leukocyte Esterase Negative /uL (Negative) Urine RBC 31 /hpf (0 - 4) Urine Microscopic WBC 2 /HPF (0-5) Urine Squamous Epithelial Cells Few /hpf (<5) Urine Bacteria None seen /hpf (None Seen) Urine Mucus Few (None Seen) Urine Creatinine 42.01 mg/dL (30.0-125.0) Urine Protein/Creatinine Ratio 0.34 Urine Sodium 54 mmol/L (40-220) Urine Glucose 4+ mg/dL (Normal) H Urine Total Protein 14.2 mg/dL (1-14) H Assessment/Plan Assessment/Plan Altered mental status Acute renal injury unknown baseline due to vasomotor nephropathy creat 1.9>1.7>1.45 Diabetes mellitus with hyperglycemia Acute metabolic encephalopathy due to uremia continue IVF Nephrology and psychiatry on consult Psychiatry needs to have encephalopathy resolved and reevaluation Ativan Consult social work program coordinator for placement>SNF MRI ordered but unable to perform reconsult tele psychiatry Dispo: SNF and psychiatry reeval Plan discussed with: Patient Date of Service: Jun 27, 2025 Billing Provider: PRABHAKAR MCDUFFIE MD Common Visit Codes: [id number] INP/OBS CARE(HIGH) PRABHAKAR MCDUFFIE MD Jun 27, 2025 12:59
--- NOTE | 2025-06-27 16:34 | DVHPN2 ---
Progress Note Date Seen: Jun 27, 2025 Medical Necessity Reason Pt with a Central, PICC or Fol: Yes The following are medically ne: Carrero Catheter Reason for carrero catheter: Bladder Retention/Obstruc Subjective Patient reports: Other (poor historian) Review of Systems: Deferred Objective vital signs Vital Sign Date Time Temp Pulse Resp B/P (MAP) Pulse Ox O2 Delivery O2 Flow Rate FiO2 06/27/25 08:45 97.5 77 16 103/58 (73) 97 97.5 06/27/25 08:00 Room Air* 0 21 Total Intake and Output 06/26/25 06/26/25 06/27/25 15:00 23:00 07:00 Intake Total 800 ml 345 ml Output Total 300 ml 875 ml Balance 500 ml -530 ml medications Current Medications Medications Dose Ordered Sig/Cooper Route Start Time Stop Time Status Last Admin Dose Admin Famotidine 20 mg DAILY IV 06/15/25 10:00 06/24/25 08:28 20 MG Atorvastatin Calcium 10 mg HS PO 06/14/25 22:00 06/26/25 22:19 10 MG Aspirin 81 mg DAILY PO 06/15/25 10:00 06/23/25 09:04 81 MG Fluoxetine HCl 20 mg DAILY PO 06/15/25 10:00 06/26/25 11:39 20 MG Ondansetron HCl 4 mg Q4HP PRN IV 06/14/25 22:00 Docusate Sodium 100 mg BIDPRN PRN PO 06/14/25 22:00 06/20/25 17:23 100 MG Acetaminophen 650 mg Q6HP PRN PO 06/14/25 22:00 06/26/25 11:41 650 MG Nitroglycerin 0.4 mg Q5MINP PRN SL 06/14/25 22:00 Lorazepam 2 mg BID PRN IV 06/15/25 17:15 06/18/25 15:01 2 MG Olanzapine 5 mg HS PO 06/22/25 22:00 06/26/25 22:18 5 MG Melatonin 5 mg HS PO 06/21/25 22:00 06/26/25 22:19 5 MG Sodium Chloride 1,000 ml @ 75 mls/hr [id number] IV 06/26/25 18:00 06/27/25 15:53 75 MLS/HR laboratory and microbiology Laboratory Tests 06/27/25 05:20 06/15/25 05:19 Test 06/27/25 05:20 Range/Units Serum Glucose 168 H 74-106 mg/dL Problem List/Assessment/Plan Problem List/Assessment/Plan Acute kidney injury superimposed Chronic Kidney Disease stage III secondary hemodynamic mediated, feNa > 2% Diabetes mellitus type 2 , uncontrolled Hypertension Pulmonary embolism on anticoagulation Mental status change Bipolar disorder Hypophosphatemia Hypomagnesemia Hypokalemia Recommendations she does not have uremia// encephalopathy is not from uremia//bun wnl Kidney function stable Increased urine output Strict I&Os on d5 0.45NS maintanence rate as poor po intake per rn Plan discussed with: Other My Orders My Orders Orders - TANISHA SCOTT MD Procedure Category Date Status Time Sodium Chloride 0.9% PHA 06/26/25 In Process 18:00 D5w/Sod Chl 0.45% / PHA 06/27/25 Transmitted NS 16:45 Dietary Evaluation Review Comments: 1) Refer Petroleum Production Engineer for diabetes education 2) Monitor PO intake, lab values, weight trend, and I/O Expected Outcomes/Goals: Lab values to improve FU 3-5 days TANISHA SCOTT MD Jun 27, 2025 16:34
--- NOTE | 2025-06-27 16:44 | DVHINCON2 ---
Date of Service if different f: Jun 27, 2025 Consultation ([facility]) Consulting Physician: JADEN GLYNN MD Labs Laboratory Tests Test 06/14/25 18:55 06/14/25 21:47 06/15/25 00:00 06/15/25 05:19 Ammonia < 10 umol/L (11-32) Creatine Kinase 36 U/L (34-145) Salicylates Level < 3.0 mg/dL (-30) Acetaminophen Level < 2.0 UG/ML (10.0-20.0) Lactic Acid Level 1.7 mmol/L (0.4-2.0) Troponin I High Sensitivity 4 ng/L (</=34) Urine Opiates Screen Neg (NEGATIVE) Urine Fentanyl Screen Neg (NEGATIVE) Urine Barbiturates Screen Neg (NEGATIVE) Urine Phencyclidine Screen Neg (NEGATIVE) Urine Amphetamines Screen Neg (NEGATIVE) Urine Benzodiazepines Screen Neg (NEGATIVE) Urine Cocaine Screen Neg (NEGATIVE) Urine Cannabinoids Screen Neg (NEGATIVE) White Blood Count 6.9 10^3/uL (4.4-10.8) Red Blood Count 4.69 10^6/uL (4.0-5.20) Hemoglobin 13.6 g/dL (12.2-16.2) Hematocrit 40.8 % (36.0-46.0) Mean Corpuscular Volume 87.1 fL (80.0-100.0) Mean Corpuscular Hemoglobin 29.0 pg (28.0-32.0) Mean Corpuscular Hemoglobin Concent 33.4 g/dL (32.0-36.0) Red Cell Distribution Width 15.8 % (11.8-14.3) Platelet Count 217 10^3/uL (140-450) Mean Platelet Volume 8.8 fL (6.9-10.8) Neutrophils (%) (Auto) 72.2 % (37.0-80.0) Lymphocytes (%) (Auto) 18.0 % (10.0-50.0) Monocytes (%) (Auto) 6.6 % (0.0-12.0) Eosinophils (%) (Auto) 2.8 % (0.0-7.0) Basophils (%) (Auto) 0.4 % (0.0-2.0) Neutrophils # (Auto) 5.0 10 ^3/uL (1.6-8.6) Lymphocytes # (Auto) 1.2 10 ^3/uL (0.4-5.4) Monocytes # (Auto) 0.5 10 ^3/uL (0-1.3) Eosinophils # (Auto) 0.2 10 ^3/uL (0-0.8) Basophils # (Auto) 0 10 ^3/uL (0-0.2) Nucleated Red Blood Cells 0.1 % Test 06/17/25 13:10 06/17/25 14:30 06/18/25 13:11 06/19/25 10:05 Urine Color Light-yellow (Yellow) Urine Clarity Clear (Clear) Urine pH 5.0 (5.0-9.0) Urine Specific [place] 1.008 (1.001-1.035) Urine Protein Negative (Negative) Urine Ketones Negative (Negative) Urine Blood 3+ /uL (Negative) Urine Nitrite Negative (Negative) Urine Bilirubin Negative (Negative) Urine Urobilinogen Normal mg/dL (Negative) Urine Leukocyte Esterase Negative /uL (Negative) Urine RBC 31 /hpf (0 - 4) Urine Microscopic WBC 2 /HPF (0-5) Urine Squamous Epithelial Cells Few /hpf (<5) Urine Bacteria None seen /hpf (None Seen) Urine Mucus Few (None Seen) Urine Creatinine 42.01 mg/dL (30.0-125.0) Urine Protein/Creatinine Ratio 0.34 Urine Sodium 54 mmol/L (40-220) Urine Glucose 4+ mg/dL (Normal) Urine Total Protein 14.2 mg/dL (1-14) Vitamin D 25-Hydroxy 54.4 ng/mL (30.0-100) Hemoglobin A1c 9.5 % A1C (<5.7) Phosphorus Level 3.0 mg/dL (2.4-5.1) Magnesium Level 1.9 mg/dL (1.6-2.6) Test 06/21/25 06:34 06/23/25 07:54 06/27/25 05:20 Total Bilirubin 0.4 mg/dL (0.2-1.0) Aspartate Amino Transf (AST/SGOT) 28 U/L (13-40) Alanine Aminotransferase (ALT/SGPT) 25 U/L (7-40) Alkaline Phosphatase 125 U/L (46-116) Total Protein 6.1 g/dL (5.7-8.2) Albumin 3.6 g/dL (3.2-4.8) Bedside Glucose 126 mg/dl (70-106) Sodium Level 141 mmol/L (136-145) Potassium Level 3.7 mmol/L (3.5-5.1) Chloride Level 105 mmol/L (98-107) Carbon Dioxide Level 23 mmol/L (20-31) Anion Gap 13 (5-15) Blood Urea Nitrogen 13 mg/dL (9-23) Creatinine 1.37 mg/dL (0.550-1.02) Glomerular Filtration Rate Calc 43 mL/min (>90) BUN/Creatinine Ratio 9.5 (10.0-20.0) Serum Glucose 168 mg/dL (74-106) Calcium Level 9.6 mg/dL (8.7-10.4) Appetite: Fair Appearance: Stated age, Disheveled Psychomotor activity: Lethargic Behavioral: Cooperative, Withdrawn Eye contact: Limited Speech: Confused, Mumbled Affect: Blunted Mood: Other Thought processes: [place] Orientation: Person Memory intact: Poor Intellect: Average Abstractability: Marginal Concentration: Poor Attention: Poor Judgement: Limited Insight: Poor Vitals Vital Signs Date Time Temp Pulse Resp B/P (MAP) Pulse Ox O2 Delivery O2 Flow Rate FiO2 06/27/25 08:45 97.5 77 16 103/58 (73) 97 97.5 06/27/25 08:00 Room Air* 0 21 Current medications Current Medications Medications Dose Ordered Sig/Cooper Route Start Time Stop Time Status Last Admin Dose Admin Famotidine 20 mg DAILY IV 06/15/25 10:00 06/24/25 08:28 20 MG Atorvastatin Calcium 10 mg HS PO 06/14/25 22:00 06/26/25 22:19 10 MG Aspirin 81 mg DAILY PO 06/15/25 10:00 06/23/25 09:04 81 MG Fluoxetine HCl 20 mg DAILY PO 06/15/25 10:00 06/26/25 11:39 20 MG Ondansetron HCl 4 mg Q4HP PRN IV 06/14/25 22:00 Docusate Sodium 100 mg BIDPRN PRN PO 06/14/25 22:00 06/20/25 17:23 100 MG Acetaminophen 650 mg Q6HP PRN PO 06/14/25 22:00 06/26/25 11:41 650 MG Nitroglycerin 0.4 mg Q5MINP PRN SL 06/14/25 22:00 Lorazepam 2 mg BID PRN IV 06/15/25 17:15 06/18/25 15:01 2 MG Olanzapine 5 mg HS PO 06/22/25 22:00 06/26/25 22:18 5 MG Melatonin 5 mg HS PO 06/21/25 22:00 06/26/25 22:19 5 MG Sodium Chloride 1,000 ml @ 75 mls/hr [id number] IV 06/26/25 18:00 06/27/25 15:53 75 MLS/HR Treatment plan discussed: With staff Medication adjusted: No Labs ordered: No Psychotherapy provided: No History of Present Illness Reason for Consult : follow up psychiatric evaluation and disposition HPI : This is a 64-year-old female with prior psychiatric history here for altered mental status. She had prior psych evaluation here on 06/15 and 06/18. On exam today, patient appears preoccupied, required a lot of promoting to stay focused and answer questions, and most answers are " i dont know." She is not sure why she is here. She does report current year as 2024. She provides address as "[address] [place] [address] in [place]. She reports living with Filiberto and could not clearly identify the relationship with Filiberto. She does report can no longer live there but unable to provide details. She is not sure how long she was living with Filiberto. When asked if she feels depressed, replies " i dont know" Asked if she feels suicidal, " I dont know" she replies. When asked about self- care plans, replies " I dont know". She is also unable to answer if having any auditory/visual hallucinations or paranoid thoughts. Past Psychiatric History : She cannot recall diagnosis, past suicide attempts or other history. Past Medical History : She cannot recall. Social History : She was living with Filiberto. She reports awhile ago, used Percocet, marijuana and alcohol. Other history is unknown. Diagnosis: Unspecified psychosis, altered mental Status Plan : Patient has a history of psychiatric illness, remains disoriented and unable to provide a viable self-care plan. Believe the patient meets hold criteria for grave disability Recommend [id number] hold for GD and transfer to inpatient psychiatric facility after medical clearance here. Continue current psychotropic medications. Assessment/Diagnosis/Plan Reviewed: Consults, Care Plan, Labs, Medications ERA STREETER DNP Jun 27, 2025 16:44
[2025-06-27] MEDS: D5W/SOD CHL 0.45% 1,000 ML IV SCH (16:45)
[2025-06-27 17:00] VITALS: BP 120/69; PULSE 76; RESP 16; TEMP 97.6; O2SAT 97
[2025-06-27 20:00] VITALS: PULSE 72; PULSE 73; RESP 18; O2SAT 96
[2025-06-27 21:00] VITALS: BP 148/80; PULSE 74; RESP 19; TEMP 97.7; O2SAT 97
[2025-06-28] VITALS (8 sets, daily range): BP systolic 105–149; BP diastolic 61–83; PULSE 67–109; RESP 16–18; TEMP 97.5–98.3; O2SAT 95–99
--- NOTE | 2025-06-28 17:40 | DVHPN2 ---
Progress Note Date Seen: Jun 28, 2025 Medical Necessity Reason Pt with a Central, PICC or Fol: Yes The following are medically ne: Carrero Catheter Reason for carrero catheter: Bladder Retention/Obstruc Subjective Patient reports: Other Review of Systems: Deferred Objective vital signs Vital Sign Date Time Temp Pulse Resp B/P (MAP) Pulse Ox O2 Delivery O2 Flow Rate FiO2 06/28/25 17:00 98.2 97 17 130/76 (94) 98 98.2 06/28/25 08:00 Room Air* 0 21 Total Intake and Output 06/27/25 06/27/25 06/28/25 15:00 23:00 07:00 Intake Total 1575 ml 150 ml Output Total 775 ml 650 ml Balance 800 ml -500 ml medications Current Medications Medications Dose Ordered Sig/Cooper Route Start Time Stop Time Status Last Admin Dose Admin Famotidine 20 mg DAILY IV 06/15/25 10:00 06/28/25 09:50 20 MG Atorvastatin Calcium 10 mg HS PO 06/14/25 22:00 06/26/25 22:19 10 MG Aspirin 81 mg DAILY PO 06/15/25 10:00 06/28/25 09:51 81 MG Fluoxetine HCl 20 mg DAILY PO 06/15/25 10:00 06/28/25 09:50 20 MG Ondansetron HCl 4 mg Q4HP PRN IV 06/14/25 22:00 Docusate Sodium 100 mg BIDPRN PRN PO 06/14/25 22:00 06/20/25 17:23 100 MG Acetaminophen 650 mg Q6HP PRN PO 06/14/25 22:00 06/26/25 11:41 650 MG Nitroglycerin 0.4 mg Q5MINP PRN SL 06/14/25 22:00 Lorazepam 2 mg BID PRN IV 06/15/25 17:15 06/18/25 15:01 2 MG Olanzapine 5 mg HS PO 06/22/25 22:00 06/26/25 22:18 5 MG Melatonin 5 mg HS PO 06/21/25 22:00 06/26/25 22:19 5 MG Dextrose/Sodium Chloride 1,000 ml @ 50 mls/hr Q20H IV 06/27/25 16:45 06/28/25 09:34 50 MLS/HR Examination: GENERAL:Abnormal, NEURO:Abnormal laboratory and microbiology Laboratory Tests 06/27/25 05:20 06/15/25 05:19 Test 06/27/25 05:20 Range/Units Serum Glucose 168 H 74-106 mg/dL Problem List/Assessment/Plan Problem List/Assessment/Plan Acute kidney injury superimposed Chronic Kidney Disease stage III secondary hemodynamic mediated, feNa > 2% Diabetes mellitus type 2 , uncontrolled Hypertension Pulmonary embolism on anticoagulation Mental status change Bipolar disorder Hypophosphatemia Hypomagnesemia Hypokalemia Recommendations she does not have uremia// encephalopathy is not from uremia//bun wnl Kidney function stable Increased urine output Strict I&Os on d5 0.45NS maintanence rate as poor po intake Plan discussed with: Other Dietary Evaluation Review Comments: 1) Refer Engine Dynamometer Tester for diabetes education 2) Monitor PO intake, lab values, weight trend, and I/O Expected Outcomes/Goals: Lab values to improve FU 3-5 days TANISHA SCOTT MD Jun 28, 2025 17:40
--- NOTE | 2025-06-28 18:08 | DVHPN2 ---
Subjective In bed confused, Reviewed: Care Plan, H&P, Labs, Medications, Previous Orders, Radiology Changes from previous H/P or p: No Changes Eyes: No Pain, No Vision change, No Conjunctivae inflammation, No Eyelid inflammation, No Other, No Redness ENT: No Ear pain, No Ear discharge, No Nose pain, No Nose discharge, No Nose congestion, No Mouth pain, No Mouth swelling, No Throat pain, No Throat swelling, No Other Cardiovascular: No Chest Pain, No Palpitations, No Orthopnea, No Paroxysmal Noc. Dyspnea, No Edema, No Lt Headedness, No Other Respiratory: No Cough, No Dry, No Shortness of breath, No SOB with excertion, No Wheezing, No Hemoptysis, No Pleuritic Pain, No Sputum, No Other Gastrointestinal: No Nausea, No Vomiting, No Abdominal Pain, No Diarrhea, No Constipation, No Melena, No Hematochezia, No Other Genitourinary: No Dysuria, No Frequency, No Incontinence, No Hematuria, No Retention, No Other Musculoskeletal: No other, No neck pain, No shoulder pain, No arm pain, No back pain, No hand pain, No leg pain, No foot pain Skin: No Rash, No Lesions, No Jaundice, No Bruising, No Other Objective Vitals Vital Signs Date Time Temp Pulse Resp B/P (MAP) Pulse Ox O2 Delivery O2 Flow Rate FiO2 06/28/25 17:00 98.2 97 17 130/76 (94) 98 98.2 06/28/25 08:00 Room Air* 0 21 Intake/Output Intake and Output 06/28/25 05:00 Intake Total 1725 ml Output Total 1425 ml Balance 300 ml Intake Oral 425 ml IV Total 1300 ml Output Urine Total 1425 ml General Appearance: Alert HEENT: Atraumatic Lungs: Clear to auscultation Cardiovascular: Regular rate, Normal S1, Normal S2 Abdomen: Normal bowel sounds Medications Current Medications Medications Dose Ordered Sig/Cooper Route Start Time Stop Time Status Last Admin Dose Admin Famotidine 20 mg DAILY IV 06/15/25 10:00 06/28/25 09:50 20 MG Atorvastatin Calcium 10 mg HS PO 06/14/25 22:00 06/26/25 22:19 10 MG Aspirin 81 mg DAILY PO 06/15/25 10:00 06/28/25 09:51 81 MG Fluoxetine HCl 20 mg DAILY PO 06/15/25 10:00 06/28/25 09:50 20 MG Ondansetron HCl 4 mg Q4HP PRN IV 06/14/25 22:00 Docusate Sodium 100 mg BIDPRN PRN PO 06/14/25 22:00 06/20/25 17:23 100 MG Acetaminophen 650 mg Q6HP PRN PO 06/14/25 22:00 06/26/25 11:41 650 MG Nitroglycerin 0.4 mg Q5MINP PRN SL 06/14/25 22:00 Lorazepam 2 mg BID PRN IV 06/15/25 17:15 06/18/25 15:01 2 MG Olanzapine 5 mg HS PO 06/22/25 22:00 06/26/25 22:18 5 MG Melatonin 5 mg HS PO 06/21/25 22:00 06/26/25 22:19 5 MG Dextrose/Sodium Chloride 1,000 ml @ 50 mls/hr Q20H IV 06/27/25 16:45 06/28/25 09:34 50 MLS/HR Laboratory Results Laboratory Tests 06/15/25 05:19 06/27/25 05:20 Urinalysis Test 06/17/25 13:10 Urine Color Light-yellow (Yellow) Urine Clarity Clear (Clear) Urine pH 5.0 (5.0-9.0) Urine Specific [place] 1.008 (1.001-1.035) Urine Protein Negative (Negative) Urine Ketones Negative (Negative) Urine Blood 3+ /uL (Negative) H Urine Nitrite Negative (Negative) Urine Bilirubin Negative (Negative) Urine Urobilinogen Normal mg/dL (Negative) Urine Leukocyte Esterase Negative /uL (Negative) Urine RBC 31 /hpf (0 - 4) Urine Microscopic WBC 2 /HPF (0-5) Urine Squamous Epithelial Cells Few /hpf (<5) Urine Bacteria None seen /hpf (None Seen) Urine Mucus Few (None Seen) Urine Creatinine 42.01 mg/dL (30.0-125.0) Urine Protein/Creatinine Ratio 0.34 Urine Sodium 54 mmol/L (40-220) Urine Glucose 4+ mg/dL (Normal) H Urine Total Protein 14.2 mg/dL (1-14) H Assessment/Plan Assessment/Plan Altered mental status Acute renal injury unknown baseline due to vasomotor nephropathy creat 1.9>1.7>1.45 Diabetes mellitus with hyperglycemia Acute metabolic encephalopathy due to uremia continue IVF Nephrology and psychiatry on consult Psychiatry needs to have encephalopathy resolved and reevaluation Ativan Consult web content & social media manager for placement>SNF MRI ordered but unable to perform reconsult tele psychiatry>5150 hold Dispo: Psychiatry placement now Plan discussed with: Patient My Orders Orders - PRABHAKAR MCDUFFIE MD Procedure Category Date Status Time * [employer]op Coiling Machine Operator CONS 06/28/25 Transmitted Consult 10:18 Date of Service: Jun 28, 2025 Billing Provider: PRABHAKAR MCDUFFIE MD Common Visit Codes: [id number] INP/OBS CARE(HIGH) PRABHAKAR MCDUFFIE MD Jun 28, 2025 18:08
[2025-06-29 01:00] VITALS: BP 111/71; PULSE 92; RESP 17; O2SAT 96
[2025-06-29 05:00] VITALS: BP 114/56; PULSE 82; RESP 17; TEMP 98.5; O2SAT 95
[2025-06-29 08:00] VITALS: PULSE 76; PULSE 81; RESP 18; O2SAT 95
[2025-06-29] MEDS: FAMOTIDINE 20 MG TAB PO SCH (09:15)
--- NOTE | 2025-06-29 13:30 | DVHPN2 ---
Subjective In bed confused, Reviewed: Care Plan, H&P, Labs, Medications, Previous Orders, Radiology Changes from previous H/P or p: No Changes Eyes: No Pain, No Vision change, No Conjunctivae inflammation, No Eyelid inflammation, No Other, No Redness ENT: No Ear pain, No Ear discharge, No Nose pain, No Nose discharge, No Nose congestion, No Mouth pain, No Mouth swelling, No Throat pain, No Throat swelling, No Other Cardiovascular: No Chest Pain, No Palpitations, No Orthopnea, No Paroxysmal Noc. Dyspnea, No Edema, No Lt Headedness, No Other Respiratory: No Cough, No Dry, No Shortness of breath, No SOB with excertion, No Wheezing, No Hemoptysis, No Pleuritic Pain, No Sputum, No Other Gastrointestinal: No Nausea, No Vomiting, No Abdominal Pain, No Diarrhea, No Constipation, No Melena, No Hematochezia, No Other Genitourinary: No Dysuria, No Frequency, No Incontinence, No Hematuria, No Retention, No Other Musculoskeletal: No other, No neck pain, No shoulder pain, No arm pain, No back pain, No hand pain, No leg pain, No foot pain Skin: No Rash, No Lesions, No Jaundice, No Bruising, No Other Objective Vitals Vital Signs Date Time Temp Pulse Resp B/P (MAP) Pulse Ox O2 Delivery O2 Flow Rate FiO2 06/29/25 08:00 81 06/29/25 05:00 98.5 17 114/56 (75) 95 98.5 06/28/25 20:00 Room Air* 0 21 Intake/Output Intake and Output 06/29/25 07:00 Intake Total 490 ml Output Total 973 ml Balance -483 ml Intake Oral 490 ml Output Urine Total 973 ml # Bowel Movements 1 General Appearance: Alert HEENT: Atraumatic Lungs: Clear to auscultation Cardiovascular: Regular rate, Normal S1, Normal S2 Abdomen: Normal bowel sounds Medications Current Medications Medications Dose Ordered Sig/Cooper Route Start Time Stop Time Status Last Admin Dose Admin Atorvastatin Calcium 10 mg HS PO 06/14/25 22:00 06/26/25 22:19 10 MG Aspirin 81 mg DAILY PO 06/15/25 10:00 06/28/25 09:51 81 MG Fluoxetine HCl 20 mg DAILY PO 06/15/25 10:00 06/28/25 09:50 20 MG Ondansetron HCl 4 mg Q4HP PRN IV 06/14/25 22:00 Docusate Sodium 100 mg BIDPRN PRN PO 06/14/25 22:00 06/20/25 17:23 100 MG Acetaminophen 650 mg Q6HP PRN PO 06/14/25 22:00 06/26/25 11:41 650 MG Nitroglycerin 0.4 mg Q5MINP PRN SL 06/14/25 22:00 Olanzapine 5 mg HS PO 06/22/25 22:00 06/26/25 22:18 5 MG Melatonin 5 mg HS PO 06/21/25 22:00 06/26/25 22:19 5 MG Dextrose/Sodium Chloride 1,000 ml @ 50 mls/hr Q20H IV 06/27/25 16:45 06/28/25 09:34 50 MLS/HR Lorazepam 2 mg BIDP PRN PO 06/28/25 23:15 Famotidine 20 mg DAILY PO 06/29/25 10:00 Laboratory Results Laboratory Tests 06/15/25 05:19 06/27/25 05:20 Urinalysis Test 06/17/25 13:10 Urine Color Light-yellow (Yellow) Urine Clarity Clear (Clear) Urine pH 5.0 (5.0-9.0) Urine Specific [place] 1.008 (1.001-1.035) Urine Protein Negative (Negative) Urine Ketones Negative (Negative) Urine Blood 3+ /uL (Negative) H Urine Nitrite Negative (Negative) Urine Bilirubin Negative (Negative) Urine Urobilinogen Normal mg/dL (Negative) Urine Leukocyte Esterase Negative /uL (Negative) Urine RBC 31 /hpf (0 - 4) Urine Microscopic WBC 2 /HPF (0-5) Urine Squamous Epithelial Cells Few /hpf (<5) Urine Bacteria None seen /hpf (None Seen) Urine Mucus Few (None Seen) Urine Creatinine 42.01 mg/dL (30.0-125.0) Urine Protein/Creatinine Ratio 0.34 Urine Sodium 54 mmol/L (40-220) Urine Glucose 4+ mg/dL (Normal) H Urine Total Protein 14.2 mg/dL (1-14) H Assessment/Plan Assessment/Plan Altered mental status Acute renal injury unknown baseline due to vasomotor nephropathy creat 1.9>1.7>1.45 Diabetes mellitus with hyperglycemia Acute metabolic encephalopathy due to uremia continue IVF Nephrology and psychiatry on consult Psychiatry needs to have encephalopathy resolved and reevaluation Ativan Consult social worker palliative care for placement>SNF MRI ordered but unable to perform reconsult tele psychiatry>5150 hold Dispo: Psychiatry placement now Plan discussed with: Patient My Orders Orders - PRABHAKAR MCDUFFIE MD Procedure Category Date Status Time Discontinue Tele MARIO 06/29/25 In Process 12:49 Date of Service: Jun 29, 2025 Billing Provider: PRABHAKAR MCDUFFIE MD Common Visit Codes: [id number] INP/OBS CARE(HIGH) PRABHAKAR MCDUFFIE MD Jun 29, 2025 13:30
--- NOTE | 2025-06-29 14:20 | DVHPN2 ---
Progress Note Date Seen: Jun 29, 2025 Medical Necessity Reason Pt with a Central, PICC or Fol: Yes The following are medically ne: Carrero Catheter Reason for carrero catheter: Bladder Retention/Obstruc Subjective Patient reports: Other (no events) Objective vital signs Vital Sign Date Time Temp Pulse Resp B/P (MAP) Pulse Ox O2 Delivery O2 Flow Rate FiO2 06/29/25 08:00 81 06/29/25 05:00 98.5 17 114/56 (75) 95 98.5 06/28/25 20:00 Room Air* 0 21 Total Intake and Output 06/28/25 06/28/25 06/29/25 15:00 23:00 07:00 Intake Total 250 ml 240 ml Output Total 523 ml 450 ml Balance -273 ml -210 ml medications Current Medications Medications Dose Ordered Sig/Cooper Route Start Time Stop Time Status Last Admin Dose Admin Atorvastatin Calcium 10 mg HS PO 06/14/25 22:00 06/26/25 22:19 10 MG Aspirin 81 mg DAILY PO 06/15/25 10:00 06/28/25 09:51 81 MG Fluoxetine HCl 20 mg DAILY PO 06/15/25 10:00 06/28/25 09:50 20 MG Ondansetron HCl 4 mg Q4HP PRN IV 06/14/25 22:00 Docusate Sodium 100 mg BIDPRN PRN PO 06/14/25 22:00 06/20/25 17:23 100 MG Acetaminophen 650 mg Q6HP PRN PO 06/14/25 22:00 06/26/25 11:41 650 MG Nitroglycerin 0.4 mg Q5MINP PRN SL 06/14/25 22:00 Olanzapine 5 mg HS PO 06/22/25 22:00 06/26/25 22:18 5 MG Melatonin 5 mg HS PO 06/21/25 22:00 06/26/25 22:19 5 MG Dextrose/Sodium Chloride 1,000 ml @ 50 mls/hr Q20H IV 06/27/25 16:45 06/28/25 09:34 50 MLS/HR Lorazepam 2 mg BIDP PRN PO 06/28/25 23:15 Famotidine 20 mg DAILY PO 06/29/25 10:00 laboratory and microbiology Laboratory Tests 06/27/25 05:20 06/15/25 05:19 Test 06/27/25 05:20 Range/Units Serum Glucose 168 H 74-106 mg/dL Problem List/Assessment/Plan Problem List/Assessment/Plan Acute kidney injury superimposed Chronic Kidney Disease stage III secondary hemodynamic mediated, feNa > 2% Diabetes mellitus type 2 , uncontrolled Hypertension Pulmonary embolism on anticoagulation Mental status change Bipolar disorder Hypophosphatemia Hypomagnesemia Hypokalemia Recommendations Kidney function stable I will sign off // pls reconsult if needed Plan discussed with: Other Dietary Evaluation Review Comments: 1) Refer Trailer Truck [employer] for diabetes education 2) Monitor PO intake, lab values, weight trend, and I/O Expected Outcomes/Goals: Lab values to improve FU 3-5 days TANISHA SCOTT MD Jun 29, 2025 14:20
[2025-06-29 17:00] VITALS: BP 126/73; PULSE 76; RESP 16; TEMP 98.1; O2SAT 96
[2025-06-29 20:00] VITALS: RESP 16
[2025-06-29 21:00] VITALS: BP 121/70; PULSE 74; RESP 20; TEMP 98; O2SAT 95
[2025-06-30 05:00] VITALS: BP 141/86; PULSE 89; RESP 19; TEMP 98.1; O2SAT 96
[2025-06-30 09:00] VITALS: BP 114/52; PULSE 82; RESP 14; TEMP 98.2; O2SAT 96
--- NOTE | 2025-06-30 12:15 | DVHPN2 ---
Subjective In bed confused, Reviewed: Care Plan, H&P, Labs, Medications, Previous Orders, Radiology Changes from previous H/P or p: No Changes Eyes: No Pain, No Vision change, No Conjunctivae inflammation, No Eyelid inflammation, No Other, No Redness ENT: No Ear pain, No Ear discharge, No Nose pain, No Nose discharge, No Nose congestion, No Mouth pain, No Mouth swelling, No Throat pain, No Throat swelling, No Other Cardiovascular: No Chest Pain, No Palpitations, No Orthopnea, No Paroxysmal Noc. Dyspnea, No Edema, No Lt Headedness, No Other Respiratory: No Cough, No Dry, No Shortness of breath, No SOB with excertion, No Wheezing, No Hemoptysis, No Pleuritic Pain, No Sputum, No Other Gastrointestinal: No Nausea, No Vomiting, No Abdominal Pain, No Diarrhea, No Constipation, No Melena, No Hematochezia, No Other Genitourinary: No Dysuria, No Frequency, No Incontinence, No Hematuria, No Retention, No Other Musculoskeletal: No other, No neck pain, No shoulder pain, No arm pain, No back pain, No hand pain, No leg pain, No foot pain Skin: No Rash, No Lesions, No Jaundice, No Bruising, No Other Objective Vitals Vital Signs Date Time Temp Pulse Resp B/P (MAP) Pulse Ox O2 Delivery O2 Flow Rate FiO2 06/30/25 09:00 98.2 82 14 114/52 (72) 96 98.2 06/30/25 08:00 Room Air* 0 21 Intake/Output Intake and Output 06/30/25 06:59 Intake Total 0 ml Output Total 625 ml Balance -625 ml Intake Oral 0 ml Output Urine Total 625 ml General Appearance: Alert HEENT: Atraumatic Lungs: Clear to auscultation Cardiovascular: Regular rate, Normal S1, Normal S2 Abdomen: Normal bowel sounds Medications Current Medications Medications Dose Ordered Sig/Cooper Route Start Time Stop Time Status Last Admin Dose Admin Atorvastatin Calcium 10 mg HS PO 06/14/25 22:00 06/26/25 22:19 10 MG Aspirin 81 mg DAILY PO 06/15/25 10:00 06/30/25 09:14 81 MG Fluoxetine HCl 20 mg DAILY PO 06/15/25 10:00 06/30/25 09:14 20 MG Ondansetron HCl 4 mg Q4HP PRN IV 06/14/25 22:00 Docusate Sodium 100 mg BIDPRN PRN PO 06/14/25 22:00 06/20/25 17:23 100 MG Acetaminophen 650 mg Q6HP PRN PO 06/14/25 22:00 06/26/25 11:41 650 MG Nitroglycerin 0.4 mg Q5MINP PRN SL 06/14/25 22:00 Olanzapine 5 mg HS PO 06/22/25 22:00 06/26/25 22:18 5 MG Melatonin 5 mg HS PO 06/21/25 22:00 06/26/25 22:19 5 MG Lorazepam 2 mg BIDP PRN PO 06/28/25 23:15 Famotidine 20 mg DAILY PO 06/29/25 10:00 06/30/25 09:14 20 MG Laboratory Results Laboratory Tests 06/15/25 05:19 06/27/25 05:20 Urinalysis Test 06/17/25 13:10 Urine Color Light-yellow (Yellow) Urine Clarity Clear (Clear) Urine pH 5.0 (5.0-9.0) Urine Specific [place] 1.008 (1.001-1.035) Urine Protein Negative (Negative) Urine Ketones Negative (Negative) Urine Blood 3+ /uL (Negative) H Urine Nitrite Negative (Negative) Urine Bilirubin Negative (Negative) Urine Urobilinogen Normal mg/dL (Negative) Urine Leukocyte Esterase Negative /uL (Negative) Urine RBC 31 /hpf (0 - 4) Urine Microscopic WBC 2 /HPF (0-5) Urine Squamous Epithelial Cells Few /hpf (<5) Urine Bacteria None seen /hpf (None Seen) Urine Mucus Few (None Seen) Urine Creatinine 42.01 mg/dL (30.0-125.0) Urine Protein/Creatinine Ratio 0.34 Urine Sodium 54 mmol/L (40-220) Urine Glucose 4+ mg/dL (Normal) H Urine Total Protein 14.2 mg/dL (1-14) H Assessment/Plan Assessment/Plan Altered mental status Acute renal injury unknown baseline due to vasomotor nephropathy creat 1.9>1.7>1.45 Diabetes mellitus with hyperglycemia Acute metabolic encephalopathy due to uremia continue IVF Nephrology and psychiatry on consult Psychiatry needs to have encephalopathy resolved and reevaluation [facility] Consult social scientist for placement>SNF MRI ordered but unable to perform reconsult tele psychiatry>5150 hold Dispo: Psychiatry placement now Plan discussed with: Patient My Orders Orders - PRABHAKAR MCDUFFIE MD Procedure Category Date Status Time Discontinue Tele MARIO 06/29/25 In Process 12:49 Date of Service: Jun 30, 2025 Billing Provider: PRABHAKAR MCDUFFIE MD Common Visit Codes: [id number] INP/OBS CARE(HIGH) PRABHAKAR MCDUFFIE MD Jun 30, 2025 12:15
[2025-06-30] MEDS: LORazepam 0.5 MG TAB PO PRN (12:19)
[2025-06-30 13:00] VITALS: BP 123/80; PULSE 105; RESP 18; TEMP 98.3; O2SAT 98
[2025-06-30 17:00] VITALS: BP 121/74; PULSE 90; RESP 16; TEMP 98.6; O2SAT 96
[2025-06-30 20:00] VITALS: RESP 16
[2025-06-30 21:00] VITALS: BP 120/70; PULSE 85; RESP 18; TEMP 98.3; O2SAT 96
[2025-07-01 05:00] VITALS: BP 111/67; PULSE 70; RESP 19; TEMP 99.1; O2SAT 95
[2025-07-01 10:42] VITALS: BP 155/88; PULSE 74
[2025-07-01 13:19] VITALS: BP 137/90; PULSE 73; RESP 15; TEMP 98.6; O2SAT 98
--- NOTE | 2025-07-01 13:54 | DVHPN2 ---
Subjective I am assuming the care of the patient from today onwards. Patient is currently pending transferred to inpatient psych facility, sitter at bedside. Reviewed: Care Plan, H&P, Labs, Medications, Previous Orders, Radiology Changes from previous H/P or p: No Changes Eyes: No Pain, No Vision change, No Conjunctivae inflammation, No Eyelid inflammation, No Other, No Redness ENT: No Ear pain, No Ear discharge, No Nose pain, No Nose discharge, No Nose congestion, No Mouth pain, No Mouth swelling, No Throat pain, No Throat swelling, No Other Cardiovascular: No Chest Pain, No Palpitations, No Orthopnea, No Paroxysmal Noc. Dyspnea, No Edema, No Lt Headedness, No Other Respiratory: No Cough, No Dry, No Shortness of breath, No SOB with excertion, No Wheezing, No Hemoptysis, No Pleuritic Pain, No Sputum, No Other Gastrointestinal: No Nausea, No Vomiting, No Abdominal Pain, No Diarrhea, No Constipation, No Melena, No Hematochezia, No Other Genitourinary: No Dysuria, No Frequency, No Incontinence, No Hematuria, No Retention, No Other Musculoskeletal: No other, No neck pain, No shoulder pain, No arm pain, No back pain, No hand pain, No leg pain, No foot pain Skin: No Rash, No Lesions, No Jaundice, No Bruising, No Other Objective Vitals Vital Signs Date Time Temp Pulse Resp B/P (MAP) Pulse Ox O2 Delivery O2 Flow Rate FiO2 07/01/25 13:19 98.6 73 15 137/90 (106) 98 98.6 07/01/25 08:16 Room Air* 0 21 Intake/Output Intake and Output 07/01/25 07:00 Intake Total 1090 ml Output Total 675 ml Balance 415 ml Intake Oral 1090 ml Output Urine Total 675 ml # Bowel Movements 1 Exam HEENT pupils are reactive Neck is supple CV is S1-S2 regular rate and rhythm Respiratory diminished breath sounds bases GI positive bowel sound Extremity no edema LICENSED PHARMACIST no motor deficit General Appearance: Alert HEENT: Atraumatic Lungs: Clear to auscultation Cardiovascular: Regular rate, Normal S1, Normal S2 Abdomen: Normal bowel sounds Medications Current Medications Medications Dose Ordered Sig/Cooper Route Start Time Stop Time Status Last Admin Dose Admin Atorvastatin Calcium 10 mg HS PO 06/14/25 22:00 06/26/25 22:19 10 MG Aspirin 81 mg DAILY PO 06/15/25 10:00 06/30/25 09:14 81 MG Fluoxetine HCl 20 mg DAILY PO 06/15/25 10:00 06/30/25 09:14 20 MG Ondansetron HCl 4 mg Q4HP PRN IV 06/14/25 22:00 Docusate Sodium 100 mg BIDPRN PRN PO 06/14/25 22:00 06/20/25 17:23 100 MG Acetaminophen 650 mg Q6HP PRN PO 06/14/25 22:00 06/26/25 11:41 650 MG Nitroglycerin 0.4 mg Q5MINP PRN SL 06/14/25 22:00 Olanzapine 5 mg HS PO 06/22/25 22:00 06/30/25 21:50 5 MG Melatonin 5 mg HS PO 06/21/25 22:00 06/30/25 21:50 5 MG Lorazepam 2 mg BIDP PRN PO 06/28/25 23:15 06/30/25 12:19 2 MG Famotidine 20 mg DAILY PO 06/29/25 10:00 06/30/25 09:14 20 MG Laboratory Results Laboratory Tests 06/15/25 05:19 06/27/25 05:20 Urinalysis Test 06/17/25 13:10 Urine Color Light-yellow (Yellow) Urine Clarity Clear (Clear) Urine pH 5.0 (5.0-9.0) Urine Specific [place] 1.008 (1.001-1.035) Urine Protein Negative (Negative) Urine Ketones Negative (Negative) Urine Blood 3+ /uL (Negative) H Urine Nitrite Negative (Negative) Urine Bilirubin Negative (Negative) Urine Urobilinogen Normal mg/dL (Negative) Urine Leukocyte Esterase Negative /uL (Negative) Urine RBC 31 /hpf (0 - 4) Urine Microscopic WBC 2 /HPF (0-5) Urine Squamous Epithelial Cells Few /hpf (<5) Urine Bacteria None seen /hpf (None Seen) Urine Mucus Few (None Seen) Urine Creatinine 42.01 mg/dL (30.0-125.0) Urine Protein/Creatinine Ratio 0.34 Urine Sodium 54 mmol/L (40-220) Urine Glucose 4+ mg/dL (Normal) H Urine Total Protein 14.2 mg/dL (1-14) H Assessment/Plan Assessment/Plan 64-year-old female with a known history of depression, schizophrenia, history of PE on anticoagulation, hypertension, diabetes mellitus type 2 presented to the hospital with altered mental status found to have 1. Acute metabolic encephalopathy with a unknown baseline 2. AKA with a underlying CKD stage 3 currently stable 3. Hyperglycemia in the setting of diabetes mellitus type 2 insulin dependent 4. Hypertension 5. History of pulmonary embolism on anticoagulation 6. Bipolar disorder/schizophrenia -continue sitter at bedside, inpatient transferred to psych facility once social service liaison arranged distended. Plan discussed with: Other Problem List: (1) Altered mental status (2) Acute renal injury (3) Diabetes mellitus with hyperglycemia Date of Service: Jul 01, 2025 Billing Provider: JENY FRANCO MD Common Visit Codes: [id number] INP/OBS CARE(HIGH) JENY FRANCO MD Jul 01, 2025 13:54
[2025-07-01 16:42] VITALS: BP 146/85; PULSE 87; RESP 18; TEMP 98.8; O2SAT 94
[2025-07-01 20:00] VITALS: PULSE 81; RESP 15; O2SAT 97
[2025-07-01 21:00] VITALS: BP 132/79; PULSE 81; RESP 15; O2SAT 97
[2025-07-02 01:00] VITALS: BP 150/84; PULSE 82; RESP 16; O2SAT 95
[2025-07-02 05:00] VITALS: BP 127/76; PULSE 78; RESP 16; O2SAT 100
[2025-07-02 08:19] VITALS: PULSE 81; RESP 18; O2SAT 94
[2025-07-02] MEDS: LORazepam 2MG/ML-1ML VIAL ONE (09:26)
--- NOTE | 2025-07-02 13:02 | DVHDS2 ---
Discharge Summary Date of Admission Jun 14, 2025 at 21:52 Date of Discharge: Jul 02, 2025 Labs/Diagnostic Data: Laboratory Results Test 06/27/25 05:20 06/23/25 07:54 06/21/25 06:34 06/19/25 10:05 Sodium Level 141 mmol/L (136-145) Potassium Level 3.7 mmol/L (3.5-5.1) Chloride Level 105 mmol/L (98-107) Carbon Dioxide Level 23 mmol/L (20-31) Anion Gap 13 (5-15) Blood Urea Nitrogen 13 mg/dL (9-23) Creatinine 1.37 mg/dL (0.550-1.02) Glomerular Filtration Rate Calc 43 mL/min (>90) BUN/Creatinine Ratio 9.5 (10.0-20.0) Serum Glucose 168 mg/dL (74-106) Calcium Level 9.6 mg/dL (8.7-10.4) POC Glucose 126 mg/dl (70-106) Total Bilirubin 0.4 mg/dL (0.2-1.0) Aspartate Amino Transferase (AST) 28 U/L (13-40) Alanine Aminotransferase (ALT) 25 U/L (7-40) Alkaline Phosphatase 125 U/L (46-116) Total Protein 6.1 g/dL (5.7-8.2) Albumin 3.6 g/dL (3.2-4.8) Phosphorus Level 3.0 mg/dL (2.4-5.1) Magnesium Level 1.9 mg/dL (1.6-2.6) Test 06/18/25 13:11 06/17/25 14:30 06/17/25 13:10 06/15/25 05:19 Hemoglobin A1c 9.5 % A1C (<5.7) Vitamin D 25-Hydroxy 54.4 ng/mL (30.0-100) Urine Color Light-yellow (Yellow) Urine Clarity Clear (Clear) Urine pH 5.0 (5.0-9.0) Urine Specific [place] 1.008 (1.001-1.035) Urine Protein Negative (Negative) Urine Ketones Negative (Negative) Urine Blood 3+ /uL (Negative) Urine Nitrite Negative (Negative) Urine Bilirubin Negative (Negative) Urine Urobilinogen Normal mg/dL (Negative) Urine Leukocyte Esterase Negative /uL (Negative) Urine RBC 31 /hpf (0 - 4) Urine Microscopic WBC 2 /HPF (0-5) Urine Squamous Epithelial Cells Few /hpf (<5) Urine Bacteria None seen /hpf (None Seen) Urine Mucus Few (None Seen) Urine Creatinine 42.01 mg/dL (30.0-125.0) Urine Protein/Creatinine Ratio 0.34 Urine Sodium 54 mmol/L (40-220) Urine Glucose 4+ mg/dL (Normal) Urine Total Protein 14.2 mg/dL (1-14) White Blood Count 6.9 10^3/uL (4.4-10.8) Red Blood Count 4.69 10^6/uL (4.0-5.20) Hemoglobin 13.6 g/dL (12.2-16.2) Hematocrit 40.8 % (36.0-46.0) Mean Corpuscular Volume 87.1 fL (80.0-100.0) Mean Corpuscular Hemoglobin 29.0 pg (28.0-32.0) Mean Corpuscular Hemoglobin Concent 33.4 g/dL (32.0-36.0) Red Cell Distribution Width 15.8 % (11.8-14.3) Platelet Count 217 10^3/uL (140-450) Mean Platelet Volume 8.8 fL (6.9-10.8) Neutrophils (%) (Auto) 72.2 % (37.0-80.0) Lymphocytes (%) (Auto) 18.0 % (10.0-50.0) Monocytes (%) (Auto) 6.6 % (0.0-12.0) Eosinophils (%) (Auto) 2.8 % (0.0-7.0) Basophils (%) (Auto) 0.4 % (0.0-2.0) Neutrophils # (Auto) 5.0 10 ^3/uL (1.6-8.6) Lymphocytes # (Auto) 1.2 10 ^3/uL (0.4-5.4) Monocytes # (Auto) 0.5 10 ^3/uL (0-1.3) Eosinophils # (Auto) 0.2 10 ^3/uL (0-0.8) Basophils # (Auto) 0 10 ^3/uL (0-0.2) Nucleated Red Blood Cells 0.1 % Test 06/15/25 00:00 06/14/25 21:47 06/14/25 18:55 Urine Opiates Screen Neg (NEGATIVE) Urine Fentanyl Screen Neg (NEGATIVE) Urine Barbiturates Screen Neg (NEGATIVE) Urine Phencyclidine Screen Neg (NEGATIVE) Urine Amphetamines Screen Neg (NEGATIVE) Urine Benzodiazepines Screen Neg (NEGATIVE) Urine Cocaine Screen Neg (NEGATIVE) Urine Cannabinoids Screen Neg (NEGATIVE) Lactic Acid Level 1.7 mmol/L (0.4-2.0) Troponin I High Sensitivity 4 ng/L (</=34) Ammonia < 10 umol/L (11-32) Creatine Kinase 36 U/L (34-145) Salicylates Level < 3.0 mg/dL (-30) Acetaminophen Level < 2.0 UG/ML (10.0-20.0) Other Laboratory Tests 06/27/25 05:20 06/15/25 05:19 Brief Hx & Hospital Course: 64-year-old female with a known history of depression, schizophrenia, history of PE on anticoagulation, hypertension, diabetes mellitus type 2 presented to the hospital with altered mental status found to have acute metabolic encephalopathy. Patient also has a acute kidney injury with a underlying CKD stage 3. Patient does have known history of diabetes mellitus type 2. Patient does take Eliquis at home while with a history of PE. Patient's has a bipolar disorder and schizophrenia. Tele psych was consulted who recommended inpatient psych facility because of patient's behavior. Condition at Discharge: Stable Final Diagnosis/Problems List 64-year-old female with a known history of depression, schizophrenia, history of PE on anticoagulation, hypertension, diabetes mellitus type 2 presented to the hospital with altered mental status found to have 1. Acute metabolic encephalopathy with a unknown baseline 2. MITA with a underlying CKD stage 3 currently stable 3. Hyperglycemia in the setting of diabetes mellitus type 2 insulin dependent 4. Hypertension 5. History of pulmonary embolism on anticoagulation 6. Bipolar disorder/schizophrenia Discharge Disposition: Psychiatric Facility SNF Discharge Will this Physician continue t: No Discharge Instruct/Medications Diet: Cardiac 2g Na,low cholest Diet comment: 1800 ADA diet. Activity: See Comment Activity comment: Patient's is being discharged to inpatient psych facility Follow Up/Referral: Please follow up at inpatient psych facility. Medications: Resume home medications. Scheduled Amantadine Hcl (Amantadine Hcl), 100 MG PO Q12HR, (Reported) Amoxicillin Trihydrate (Amoxicillin), 500 MG PO Q6HR, (Reported) Apixaban Base (Eliquis), 2.5 MG PO BID, (Reported) Atorvastatin Calcium (Lipitor), 10 MG OR HS, (Reported) Atorvastatin Calcium (Atorvastatin Calcium), 1 TAB PO DAILY, (Reported) Diphenhydramine Hcl (Benadryl), 25 MG OR BID, (Reported) Insulin Glargine (Basaglar Kwikpen), 25 UNIT SC BID, (Reported) Lisinopril (Lisinopril), 10 MG OR HS, (Reported) Pantoprazole Sodium Sesquihydr (Protonix), 40 MG PO DAILY, (Reported) Pramipexole Dihydrochloride (Mirapex), 0.5 MG OR QOD, (Reported) [Asprin], 81 MG QDAC, (Reported) [Lantus], 70 HS, (Reported) [[place]], TID, (Reported) [Metformin], 500 MG BID, (Reported) Miscellaneous Medications Olanzapine-Samidorphan l-Malat (Lybalvi 5-10 mg), 5 MG PO, (Reported) Discharge Statement: "Patient was advised to return to the ER or call 911 if any headaches, dizziness, shortness of breath, chest pain, abdominal pain, bleeding, fevers, or worsening of medical condition. Patient was counseled about treatment plan, medications, possible side effects, patientverbalized understanding. All questions were answered to the best of my ability. This discharge took greater then 30 minutes in planning, reviewing documentation, counseling the patient, and discussing with other team members." ASSESSMENT ASSESSMENT Assessment 64-year-old female with a known history of depression, schizophrenia, history of PE on anticoagulation, hypertension, diabetes mellitus type 2 presented to the hospital with altered mental status found to have 1. Acute metabolic encephalopathy with a unknown baseline 2. MITA with a underlying CKD stage 3 currently stable 3. Hyperglycemia in the setting of diabetes mellitus type 2 insulin dependent 4. Hypertension 5. History of pulmonary embolism on anticoagulation 6. Bipolar disorder/schizophrenia Date of Service: Jul 02, 2025 Billing Provider: JENY FRANCO MD Common Visit Codes: [id number] DISCH DAY >30min JENY FRANCO MD Jul 02, 2025 13:02
[2025-07-02] MEDS: APIXABAN 2.5 MG TAB PO SCH (18:00)
[2025-07-02] MEDS: LORazepam 2MG/ML-1ML VIAL IM ONE (18:00)
[2025-07-02 20:00] VITALS: PULSE 86; RESP 17; O2SAT 96
[2025-07-02 21:00] VITALS: BP 105/71; PULSE 95; RESP 18; TEMP 97.7; O2SAT 98
[2025-07-03] VITALS (8 sets, daily range): BP systolic 108–142; BP diastolic 69–89; PULSE 77–97; RESP 16–18; TEMP 97.7–98.2; O2SAT 96–97
--- NOTE | 2025-07-03 16:46 | DVHPN2 ---
Subjective Patient's discharge is pending, inpatient psych facility bed availability. Reviewed: Care Plan, H&P, Labs, Medications, Previous Orders, Radiology Changes from previous H/P or p: No Changes Eyes: No Pain, No Vision change, No Conjunctivae inflammation, No Eyelid inflammation, No Other, No Redness ENT: No Ear pain, No Ear discharge, No Nose pain, No Nose discharge, No Nose congestion, No Mouth pain, No Mouth swelling, No Throat pain, No Throat swelling, No Other Cardiovascular: No Chest Pain, No Palpitations, No Orthopnea, No Paroxysmal Noc. Dyspnea, No Edema, No Lt Headedness, No Other Respiratory: No Cough, No Dry, No Shortness of breath, No SOB with excertion, No Wheezing, No Hemoptysis, No Pleuritic Pain, No Sputum, No Other Gastrointestinal: No Nausea, No Vomiting, No Abdominal Pain, No Diarrhea, No Constipation, No Melena, No Hematochezia, No Other Genitourinary: No Dysuria, No Frequency, No Incontinence, No Hematuria, No Retention, No Other Musculoskeletal: No other, No neck pain, No shoulder pain, No arm pain, No back pain, No hand pain, No leg pain, No foot pain Skin: No Rash, No Lesions, No Jaundice, No Bruising, No Other Objective Vitals Vital Signs Date Time Temp Pulse Resp B/P (MAP) Pulse Ox O2 Delivery O2 Flow Rate FiO2 07/03/25 05:00 97.7 87 18 130/79 (96) 96 97.7 07/02/25 20:00 Room Air* 0 21 Intake/Output Intake and Output 07/03/25 06:59 Intake Total 100 ml Output Total 150 ml Balance -50 ml Intake Oral 100 ml Output Urine Total 150 ml Exam HEENT pupils are reactive Neck is supple CV is S1-S2 regular rate and rhythm Respiratory diminished breath sounds bases GI positive bowel sound Extremity no edema 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 General Appearance: Alert HEENT: Atraumatic Lungs: Clear to auscultation Cardiovascular: Regular rate, Normal S1, Normal S2 Abdomen: Normal bowel sounds Medications Current Medications Medications Dose Ordered Sig/Cooper Route Start Time Stop Time Status Last Admin Dose Admin Atorvastatin Calcium 10 mg HS PO 06/14/25 22:00 06/26/25 22:19 10 MG Aspirin 81 mg DAILY PO 06/15/25 10:00 07/03/25 15:54 81 MG Fluoxetine HCl 20 mg DAILY PO 06/15/25 10:00 07/03/25 15:54 20 MG Ondansetron HCl 4 mg Q4HP PRN IV 06/14/25 22:00 Docusate Sodium 100 mg BIDPRN PRN PO 06/14/25 22:00 06/20/25 17:23 100 MG Acetaminophen 650 mg Q6HP PRN PO 06/14/25 22:00 06/26/25 11:41 650 MG Nitroglycerin 0.4 mg Q5MINP PRN SL 06/14/25 22:00 Olanzapine 5 mg HS PO 06/22/25 22:00 06/30/25 21:50 5 MG Melatonin 5 mg HS PO 06/21/25 22:00 06/30/25 21:50 5 MG Lorazepam 2 mg BIDP PRN PO 06/28/25 23:15 06/30/25 12:19 2 MG Famotidine 20 mg DAILY PO 06/29/25 10:00 07/03/25 15:54 20 MG Apixaban 2.5 mg BIDWM PO 07/02/25 18:00 07/03/25 15:54 2.5 MG Laboratory Results Laboratory Tests 06/15/25 05:19 06/27/25 05:20 Urinalysis Test 06/17/25 13:10 Urine Color Light-yellow (Yellow) Urine Clarity Clear (Clear) Urine pH 5.0 (5.0-9.0) Urine Specific [place] 1.008 (1.001-1.035) Urine Protein Negative (Negative) Urine Ketones Negative (Negative) Urine Blood 3+ /uL (Negative) H Urine Nitrite Negative (Negative) Urine Bilirubin Negative (Negative) Urine Urobilinogen Normal mg/dL (Negative) Urine Leukocyte Esterase Negative /uL (Negative) Urine RBC 31 /hpf (0 - 4) Urine Microscopic WBC 2 /HPF (0-5) Urine Squamous Epithelial Cells Few /hpf (<5) Urine Bacteria None seen /hpf (None Seen) Urine Mucus Few (None Seen) Urine Creatinine 42.01 mg/dL (30.0-125.0) Urine Protein/Creatinine Ratio 0.34 Urine Sodium 54 mmol/L (40-220) Urine Glucose 4+ mg/dL (Normal) H Urine Total Protein 14.2 mg/dL (1-14) H Assessment/Plan Assessment/Plan 64-year-old female with a known history of depression, schizophrenia, history of PE on anticoagulation, hypertension, diabetes mellitus type 2 presented to the hospital with altered mental status found to have 1. Acute metabolic encephalopathy with a unknown baseline 2. AKA with a underlying CKD stage 3 currently stable 3. Hyperglycemia in the setting of diabetes mellitus type 2 insulin dependent 4. Hypertension 5. History of pulmonary embolism on anticoagulation 6. Bipolar disorder/schizophrenia -continue sitter at bedside, inpatient transferred to psych facility once social problems specialist arranged bed. -reconsult tele psych as 5150 order has been . Plan discussed with: Patient My Orders Orders - JENY FRANCO MD Procedure Category Date Status Time Soc Telemed Psych CONS 07/03/25 Transmitted Consult 11:15 Date of Service: Jul 03, 2025 Billing Provider: JENY FRANCO MD Common Visit Codes: [id number] INP/OBS CARE(MOD) JENY FRANCO MD Jul 03, 2025 16:46
[2025-07-04 05:00] VITALS: BP 148/91; PULSE 81; RESP 17; TEMP 98; O2SAT 97
[2025-07-04 08:00] VITALS: RESP 16
[2025-07-04 09:00] VITALS: BP 147/89; PULSE 89; RESP 18; TEMP 98; O2SAT 98
--- NOTE | 2025-07-04 10:12 | DVHINCON2 ---
Date of Service if different f: Jul 04, 2025 Consultation ([facility]) Consulting Physician: JADEN GLYNN MD Labs Laboratory Tests Test 06/14/25 18:55 06/14/25 21:47 06/15/25 00:00 06/15/25 05:19 Ammonia < 10 umol/L (11-32) Creatine Kinase 36 U/L (34-145) Salicylates Level < 3.0 mg/dL (-30) Acetaminophen Level < 2.0 UG/ML (10.0-20.0) Lactic Acid Level 1.7 mmol/L (0.4-2.0) Troponin I High Sensitivity 4 ng/L (</=34) Urine Opiates Screen Neg (NEGATIVE) Urine Fentanyl Screen Neg (NEGATIVE) Urine Barbiturates Screen Neg (NEGATIVE) Urine Phencyclidine Screen Neg (NEGATIVE) Urine Amphetamines Screen Neg (NEGATIVE) Urine Benzodiazepines Screen Neg (NEGATIVE) Urine Cocaine Screen Neg (NEGATIVE) Urine Cannabinoids Screen Neg (NEGATIVE) White Blood Count 6.9 10^3/uL (4.4-10.8) Red Blood Count 4.69 10^6/uL (4.0-5.20) Hemoglobin 13.6 g/dL (12.2-16.2) Hematocrit 40.8 % (36.0-46.0) Mean Corpuscular Volume 87.1 fL (80.0-100.0) Mean Corpuscular Hemoglobin 29.0 pg (28.0-32.0) Mean Corpuscular Hemoglobin Concent 33.4 g/dL (32.0-36.0) Red Cell Distribution Width 15.8 % (11.8-14.3) Platelet Count 217 10^3/uL (140-450) Mean Platelet Volume 8.8 fL (6.9-10.8) Neutrophils (%) (Auto) 72.2 % (37.0-80.0) Lymphocytes (%) (Auto) 18.0 % (10.0-50.0) Monocytes (%) (Auto) 6.6 % (0.0-12.0) Eosinophils (%) (Auto) 2.8 % (0.0-7.0) Basophils (%) (Auto) 0.4 % (0.0-2.0) Neutrophils # (Auto) 5.0 10 ^3/uL (1.6-8.6) Lymphocytes # (Auto) 1.2 10 ^3/uL (0.4-5.4) Monocytes # (Auto) 0.5 10 ^3/uL (0-1.3) Eosinophils # (Auto) 0.2 10 ^3/uL (0-0.8) Basophils # (Auto) 0 10 ^3/uL (0-0.2) Nucleated Red Blood Cells 0.1 % Test 06/17/25 13:10 06/17/25 14:30 06/18/25 13:11 06/19/25 10:05 Urine Color Light-yellow (Yellow) Urine Clarity Clear (Clear) Urine pH 5.0 (5.0-9.0) Urine Specific [place] 1.008 (1.001-1.035) Urine Protein Negative (Negative) Urine Ketones Negative (Negative) Urine Blood 3+ /uL (Negative) Urine Nitrite Negative (Negative) Urine Bilirubin Negative (Negative) Urine Urobilinogen Normal mg/dL (Negative) Urine Leukocyte Esterase Negative /uL (Negative) Urine RBC 31 /hpf (0 - 4) Urine Microscopic WBC 2 /HPF (0-5) Urine Squamous Epithelial Cells Few /hpf (<5) Urine Bacteria None seen /hpf (None Seen) Urine Mucus Few (None Seen) Urine Creatinine 42.01 mg/dL (30.0-125.0) Urine Protein/Creatinine Ratio 0.34 Urine Sodium 54 mmol/L (40-220) Urine Glucose 4+ mg/dL (Normal) Urine Total Protein 14.2 mg/dL (1-14) Vitamin D 25-Hydroxy 54.4 ng/mL (30.0-100) Hemoglobin A1c 9.5 % A1C (<5.7) Phosphorus Level 3.0 mg/dL (2.4-5.1) Magnesium Level 1.9 mg/dL (1.6-2.6) Test 06/21/25 06:34 06/23/25 07:54 06/27/25 05:20 Total Bilirubin 0.4 mg/dL (0.2-1.0) Aspartate Amino Transf (AST/SGOT) 28 U/L (13-40) Alanine Aminotransferase (ALT/SGPT) 25 U/L (7-40) Alkaline Phosphatase 125 U/L (46-116) Total Protein 6.1 g/dL (5.7-8.2) Albumin 3.6 g/dL (3.2-4.8) Bedside Glucose 126 mg/dl (70-106) Sodium Level 141 mmol/L (136-145) Potassium Level 3.7 mmol/L (3.5-5.1) Chloride Level 105 mmol/L (98-107) Carbon Dioxide Level 23 mmol/L (20-31) Anion Gap 13 (5-15) Blood Urea Nitrogen 13 mg/dL (9-23) Creatinine 1.37 mg/dL (0.550-1.02) Glomerular Filtration Rate Calc 43 mL/min (>90) BUN/Creatinine Ratio 9.5 (10.0-20.0) Serum Glucose 168 mg/dL (74-106) Calcium Level 9.6 mg/dL (8.7-10.4) Appetite: Fair Appearance: Stated age, Disheveled Psychomotor activity: Lethargic Behavioral: Cooperative, Withdrawn Eye contact: Limited Speech: Confused, Mumbled Affect: Blunted Mood: Dysphoric, Other Thought processes: [place] Thought content: Hallucinations (auditory) Orientation: Person Memory intact: Poor Intellect: Average Abstractability: Marginal Concentration: Poor Attention: Poor Judgement: Limited Insight: Poor Vitals Vital Signs Date Time Temp Pulse Resp B/P (MAP) Pulse Ox O2 Delivery O2 Flow Rate FiO2 07/04/25 09:00 98.0 89 18 147/89 (108) 98 98.0 07/03/25 20:00 Room Air* 0 21 Current medications Current Medications Medications Dose Ordered Sig/Cooper Route Start Time Stop Time Status Last Admin Dose Admin Atorvastatin Calcium 10 mg HS PO 06/14/25 22:00 06/26/25 22:19 10 MG Aspirin 81 mg DAILY PO 06/15/25 10:00 07/03/25 15:54 81 MG Fluoxetine HCl 20 mg DAILY PO 06/15/25 10:00 07/03/25 15:54 20 MG Ondansetron HCl 4 mg Q4HP PRN IV 06/14/25 22:00 Docusate Sodium 100 mg BIDPRN PRN PO 06/14/25 22:00 06/20/25 17:23 100 MG Acetaminophen 650 mg Q6HP PRN PO 06/14/25 22:00 06/26/25 11:41 650 MG Nitroglycerin 0.4 mg Q5MINP PRN SL 06/14/25 22:00 Olanzapine 5 mg HS PO 06/22/25 22:00 06/30/25 21:50 5 MG Melatonin 5 mg HS PO 06/21/25 22:00 06/30/25 21:50 5 MG Lorazepam 2 mg BIDP PRN PO 06/28/25 23:15 06/30/25 12:19 2 MG Famotidine 20 mg DAILY PO 06/29/25 10:00 07/03/25 15:54 20 MG Apixaban 2.5 mg BIDWM PO 07/02/25 18:00 07/03/25 18:51 2.5 MG Treatment plan discussed: With staff Medication adjusted: No Labs ordered: No Psychotherapy provided: No History of Present Illness Reason for Consult : Patient seen for follow up today and re-evaluation of 5150hold. HPI : Patient is a 64-year-old female with prior diagnoses of depression and schizophrenia. On exam today via telepsychiatry, patient is lying in bed, mostly no eye contact and selectively mute. She reports doing Okay. Asked what are her care plans after discharge from here, she does not respond. Asked if she has family, she mentions jeniffer as her boyfriend then unable to answer any follow up questions regarding jeniffer or provide contact information. She denies having suicidal or homicidal ideation. When asked if she is feeling depressed or hopeless, she does not respond. She reports hearing things, again not willing to answer follow up questions. She also did not respond if having visual hallucinations or paranoid thoughts. Plan Recommend to continue 5150hold for GD. Patient is selectively mute, and unable to provide any viable self-care plans. Transfer to inpatient facility for stabilization and treatment. Continue Fluoxetine 20mg po qam. zyprexa 5mg po qhs. Assessment/Diagnosis/Plan Reviewed: Consults, Care Plan, Labs, Medications ERA STREETER DNP Jul 04, 2025 10:12
[2025-07-04 13:00] VITALS: BP 124/82; PULSE 92; RESP 18; TEMP 98.2; O2SAT 97
--- NOTE | 2025-07-04 15:34 | DVHPN2 ---
Subjective Patient's discharge is pending, inpatient psych facility bed availability. Reviewed: Care Plan, H&P, Labs, Medications, Previous Orders, Radiology Changes from previous H/P or p: No Changes Eyes: No Pain, No Vision change, No Conjunctivae inflammation, No Eyelid inflammation, No Other, No Redness ENT: No Ear pain, No Ear discharge, No Nose pain, No Nose discharge, No Nose congestion, No Mouth pain, No Mouth swelling, No Throat pain, No Throat swelling, No Other Cardiovascular: No Chest Pain, No Palpitations, No Orthopnea, No Paroxysmal Noc. Dyspnea, No Edema, No Lt Headedness, No Other Respiratory: No Cough, No Dry, No Shortness of breath, No SOB with excertion, No Wheezing, No Hemoptysis, No Pleuritic Pain, No Sputum, No Other Gastrointestinal: No Nausea, No Vomiting, No Abdominal Pain, No Diarrhea, No Constipation, No Melena, No Hematochezia, No Other Genitourinary: No Dysuria, No Frequency, No Incontinence, No Hematuria, No Retention, No Other Musculoskeletal: No other, No neck pain, No shoulder pain, No arm pain, No back pain, No hand pain, No leg pain, No foot pain Skin: No Rash, No Lesions, No Jaundice, No Bruising, No Other Objective Vitals Vital Signs Date Time Temp Pulse Resp B/P (MAP) Pulse Ox O2 Delivery O2 Flow Rate FiO2 07/04/25 13:00 98.2 92 18 124/82 (96) 97 98.2 07/04/25 08:00 Room Air* 0 21 Intake/Output Intake and Output 07/04/25 07:00 Intake Total 600 ml Output Total 850 ml Balance -250 ml Intake Oral 600 ml Output Urine Total 850 ml Exam HEENT pupils are reactive Neck is supple CV is S1-S2 regular rate and rhythm Respiratory diminished breath sounds bases GI positive bowel sound Extremity no edema 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 General Appearance: Alert HEENT: Atraumatic Lungs: Clear to auscultation Cardiovascular: Regular rate, Normal S1, Normal S2 Abdomen: Normal bowel sounds Medications Current Medications Medications Dose Ordered Sig/Cooper Route Start Time Stop Time Status Last Admin Dose Admin Atorvastatin Calcium 10 mg HS PO 06/14/25 22:00 06/26/25 22:19 10 MG Aspirin 81 mg DAILY PO 06/15/25 10:00 07/04/25 11:42 81 MG Fluoxetine HCl 20 mg DAILY PO 06/15/25 10:00 07/04/25 11:41 20 MG Ondansetron HCl 4 mg Q4HP PRN IV 06/14/25 22:00 Docusate Sodium 100 mg BIDPRN PRN PO 06/14/25 22:00 06/20/25 17:23 100 MG Acetaminophen 650 mg Q6HP PRN PO 06/14/25 22:00 06/26/25 11:41 650 MG Nitroglycerin 0.4 mg Q5MINP PRN SL 06/14/25 22:00 Olanzapine 5 mg HS PO 06/22/25 22:00 06/30/25 21:50 5 MG Melatonin 5 mg HS PO 06/21/25 22:00 06/30/25 21:50 5 MG Lorazepam 2 mg BIDP PRN PO 06/28/25 23:15 06/30/25 12:19 2 MG Famotidine 20 mg DAILY PO 06/29/25 10:00 07/04/25 11:42 20 MG Apixaban 2.5 mg BIDWM PO 07/02/25 18:00 07/04/25 11:42 2.5 MG Laboratory Results Laboratory Tests 06/15/25 05:19 06/27/25 05:20 Urinalysis Test 06/17/25 13:10 Urine Color Light-yellow (Yellow) Urine Clarity Clear (Clear) Urine pH 5.0 (5.0-9.0) Urine Specific [place] 1.008 (1.001-1.035) Urine Protein Negative (Negative) Urine Ketones Negative (Negative) Urine Blood 3+ /uL (Negative) H Urine Nitrite Negative (Negative) Urine Bilirubin Negative (Negative) Urine Urobilinogen Normal mg/dL (Negative) Urine Leukocyte Esterase Negative /uL (Negative) Urine RBC 31 /hpf (0 - 4) Urine Microscopic WBC 2 /HPF (0-5) Urine Squamous Epithelial Cells Few /hpf (<5) Urine Bacteria None seen /hpf (None Seen) Urine Mucus Few (None Seen) Urine Creatinine 42.01 mg/dL (30.0-125.0) Urine Protein/Creatinine Ratio 0.34 Urine Sodium 54 mmol/L (40-220) Urine Glucose 4+ mg/dL (Normal) H Urine Total Protein 14.2 mg/dL (1-14) H Assessment/Plan Assessment/Plan 64-year-old female with a known history of depression, schizophrenia, history of PE on anticoagulation, hypertension, diabetes mellitus type 2 presented to the hospital with altered mental status found to have 1. Acute metabolic encephalopathy with a unknown baseline 2. AKA with a underlying CKD stage 3 currently stable 3. Hyperglycemia in the setting of diabetes mellitus type 2 insulin dependent 4. Hypertension 5. History of pulmonary embolism on anticoagulation 6. Bipolar disorder/schizophrenia -continue sitter at bedside, inpatient transferred to psych facility once social media specialist arranged bed. -reconsult tele psych recommendation recommended keep 5150 for now, patient is selectively mute, transferred to higher level of care For inpatient psych facility. Plan discussed with: Patient, Other Date of Service: Jul 04, 2025 Billing Provider: JENY FRANCO MD Common Visit Codes: [id number] INP/OBS CARE(MOD) JENY FRANCO MD Jul 04, 2025 15:34
[2025-07-04 17:00] VITALS: BP 113/75; PULSE 85; RESP 19; TEMP 98.1; O2SAT 97
== END 2025-07-04 23:35 | DRG 70 ==
LOC: EDBD 17:40 → ER 17:40 → OVERFLOW 21:52 → OBSVTOIN 21:52 → MERGE 21:52 → TELE-EAST 23:55 → TELE-CENTR 06-20 11:20 → CENTRAL 06-29 15:29
PROVIDERS: ADMIT Internal Medicine; ATTEND Internal Medicine
DX: G93.41 Metabolic encephalopathy (principal); N17.0 Acute kidney failure with tubular necrosis; F06.1 Catatonic disorder due to known physiological condition; N39.0 Urinary tract infection, site not specified; Z79.01 Long term (current) use of anticoagulants; E11.65 Type 2 diabetes mellitus with hyperglycemia; N18.32 Chronic kidney disease, stage 3b; I12.9 Hypertensive chronic kidney disease with stage 1 through stage 4 chronic kidney disease, or unspecified chronic kidney disease; E11.22 Type 2 diabetes mellitus with diabetic chronic kidney disease; F31.9 Bipolar disorder, unspecified; T73.0XXA Starvation, initial encounter; E86.9 Volume depletion, unspecified; E83.42 Hypomagnesemia; E83.39 Other disorders of phosphorus metabolism; E87.6 Hypokalemia; F20.9 Schizophrenia, unspecified; E78.5 Hyperlipidemia, unspecified; R33.9 Retention of urine, unspecified; F94.0 Selective mutism; Z79.899 Other long term (current) drug therapy; Z86.711 Personal history of pulmonary embolism; Z79.4 Long term (current) use of insulin; Z91.199 Patient's noncompliance with other medical treatment and regimen due to unspecified reason; X58.XXXA Exposure to other specified factors, initial encounter
CPT/HCPCS: 36415; 70551; 71045; 76775; 80048; 80053; 80307; 80329; 81001; 82140; 82306; 82550; 82570; 82962; 83036; 83605; 83735; 84100; 84156; 84300; 84484; 85025; 97163; G0378; J1815; J3490